=== PATIENT | male | born 1950 | race Caucasian/White ===

== ENCOUNTER → 2019-01-17 | Outpatient (CLI) | payer MEDICARE, OTHER ==
--- NOTE | 2019-01-17 09:51 | US ---
EXAMINATION TYPE: US kidneys/renal and bladder DATE OF EXAM: 01/17/2019 COMPARISON: NONE CLINICAL HISTORY: N17.9 Acute kidney injury. Acute kidney injury EXAM MEASUREMENTS: Right Kidney: 9.2 x 5.0 x 5.0 cm Left Kidney: 9.1 x 4.8 x 4.5 cm Right Kidney: multiple echogenic foci scattered throughout with largest seen superior pole measuring 0.5cm Left Kidney: multiple echogenic foci scattered throughout with largest seen inferior pole measuring 0 .7cm, 2 small hypoechoic areas inferior pole largest measuring 1.1cm, probable cysts. Bladder: wnl Bilateral Jets seen: yes There is no evidence for hydronephrosis at this point in time. Diminished cortical medullary differen tiation bilaterally. The urinary bladder is anechoic. Bilateral ureteral jets are seen. IMPRESSION: Diminished cortical medullary differentiation bilaterally suggests chronic medical renal disease. Add itionally there are numerous bilateral punctate hyperechoic foci that may represent small subcentimet er renal calculi however have no definitive shadowing. CT could be utilized for confirmation. No hydr onephrosis of either kidney.
== END | disposition home or self-care (01) ==
LOC: RADUSWWP 08:09
PROVIDERS: ATTEND Internal Medicine
DX: N17.9 Acute kidney failure, unspecified (principal)
CPT/HCPCS: 76770

== ENCOUNTER → 2019-01-18 | Outpatient (CLI) | payer MEDICARE, OTHER ==
--- NOTE | 2019-01-18 15:58 | NM ---
EXAMINATION TYPE: NM parathyroid w/spect DATE OF EXAM: 01/18/2019 COMPARISON: NONE HISTORY: Hypercalcemia. TECHNIQUE: Following administration of 25.2 mCi Tc99m Sestamibi. Anterior projection images of the neck and ches t were obtained 10 minutes and 3 hours post injection. SPECT images of the neck and chest were obtai jayant and reconstructed in three axes. FINDINGS: Thyroid tracer washout: Delayed images demonstrate near-complete tracer washout from the thyroid. Parathyroid uptake: None. The two-hour delayed images do not demonstrate any focal abnormal persisten t uptake in the region of the parathyroid glands to suggest parathyroid adenoma. Normal uptake: There is physiological tracer uptake in the myocardium, liver, salivary glands, and th yroid gland. IMPRESSION: Unremarkable parathyroid imaging study. No evidence for mediastinal uptake to suggest mediastinal par athyroid adenoma
== END | disposition home or self-care (01) ==
LOC: RADNMMAIN 11:03
PROVIDERS: ATTEND Internal Medicine
DX: E83.52 Hypercalcemia (principal)
CPT/HCPCS: 78071; A9500

== ENCOUNTER → 2019-02-01 | Outpatient (CLI) | payer MEDICARE, OTHER ==
[~2019-02-01] MED LIST: SODIUM CHLORIDE 0.9% 500 ML 500 ML in EMPTY BAG 1 BAG IV PRN; ZOLEDRONIC ACID 4 MG in SODIUM CHLORIDE 0.9% 100 ML IV NR
[2019-02-01 15:10] VITALS: BP 158/82; PULSE 102; RESP 16; TEMP 98.2
[2019-02-02 01:06] LABS: Protein, Total 6.3 g/dL (6.2-8.2)
[2019-02-02 01:14] LABS: Vitamin D 25 Hydroxy 20.1 ng/mL (30.0-100.0)
[2019-02-02 13:51] LABS: Albumin 3.49 g/dL (3.20-5.60); Gamma Globulin 0.77 g/dL (0.50-1.60)
== END ==
LOC: PROCWHC3 14:20
PROVIDERS: ATTEND Internal Medicine
DX: E83.52 Hypercalcemia (principal)
CPT/HCPCS: 82164; 84443; 84165; 82306; 86334; 86335; 96365; J3489

== ENCOUNTER → 2019-02-13 | Outpatient (CLI) | payer MEDICARE, OTHER ==
[2019-02-13 11:02] VITALS: BP 156/93; PULSE 100; RESP 16; TEMP 98
== END | disposition home or self-care (01) ==
LOC: PROCWHC3 10:37
PROVIDERS: ATTEND Nurse Practitioner Family
DX: E83.52 Hypercalcemia (principal)
CPT/HCPCS: 96365; J3489

== ENCOUNTER → 2019-02-23 | Outpatient (CLI) | payer MEDICARE, OTHER ==
--- NOTE | 2019-02-23 14:41 | US ---
EXAMINATION TYPE: US kidneys/renal and bladder DATE OF EXAM: 02/23/2019 COMPARISON: NONE CLINICAL HISTORY: N17.9 Acute kidney injury. EXAM MEASUREMENTS: Right Kidney: 10.5 x 4.9 x 3.7 cm Left Kidney: 11.8 x 5.9 x 4.5 cm Right Kidney: echogenic, thin renal cortex, multiple echogenic foci noted Left Kidney: echogenic, thin renal cortex, multiple echogenic foci noted, probable cystic areas lower pole with largest = 1.3 x 1.0 x 1.2cm Bladder: appears wnl Bilateral Jets seen: no There is no evidence for hydronephrosis at this point in time. No nephrolithiasis is seen. No solid masses are identified. The urinary bladder is anechoic. Bilateral ureteral jets are seen. IMPRESSION: Renal parenchymal thinning. Simple appearing cyst lower pole left kidney.
== END | disposition home or self-care (01) ==
LOC: RADUSWWP 14:03
PROVIDERS: ATTEND Internal Medicine Nephrology
DX: N28.1 Cyst of kidney, acquired (principal)
CPT/HCPCS: 76770

== ENCOUNTER → 2019-04-06 | Outpatient (CLI) | payer MEDICARE, OTHER ==
--- NOTE | 2019-04-06 11:11 | US ---
EXAMINATION TYPE: US kidneys/renal and bladder DATE OF EXAM: 04/06/2019 COMPARISON: 02/23/2019 CLINICAL HISTORY: 68-year-old male N17.9 LESA. TECHNIQUE: Multiple sonographic images of the kidneys and bladder are obtained. FINDINGS: EXAM MEASUREMENTS: Right Kidney: 10.0 x 5.9 x 4.2 cm Left Kidney: 10.3 x 5.3 x 4.8 cm Right Kidney: Multiple echogenic foci, some show shadowing shadowing. These could represent multiple small calculi or calcified arteries, no hydronephrosis identified. Left Kidney: Multiple echogenic foci, some show shadowing,, similar to the contralateral side. No hyd ronephrosis. There are two small lower pole cysts, largest measures 1.2 x .9 x 1.3 cm. Bladder: wnl Bilateral Jets seen: Yes IMPRESSION: 1. Similar extensive bilateral renal calcifications could represent calcified arteries or extensive r enal calculi. 2. No hydronephrosis.
== END | disposition home or self-care (01) ==
LOC: RADUSWWP 08:12
PROVIDERS: ATTEND Internal Medicine Nephrology
DX: N17.9 Acute kidney failure, unspecified (principal)
CPT/HCPCS: 76770

== ENCOUNTER → 2019-04-13 | Outpatient (CLI) | payer MEDICARE, OTHER ==
--- NOTE | 2019-04-13 10:47 | CT ---
EXAMINATION TYPE: CT ChestAbdPelvis wo con DATE OF EXAM: 04/13/2019 COMPARISON: None HISTORY: 68-year-old male Hypercalcemia. Back pain. TECHNIQUE: Contiguous axial scanning of the chest, abdomen, and pelvis without IV contrast. Coronal a nd sagittal reconstructions performed. CT DLP: 876.9 mGycm Automated exposure control for dose reduction was used. FINDINGS: Chest: Heart normal size without pericardial effusion. Extensive coronary vessel calcifications are present. Borderline ectasia ascending aorta 3.6 cm. Atherosclerotic arch calcifications. Conventional arch ves moriah branching anatomy. Scattered nonenlarged mediastinal lymph nodes. No thoracic lymphadenopathy by CT size criteria. Scattered pulmonary nodules are present on the right, approximately 9 nodules, measuring up to 6 mm, axial image 31 with most measuring 4 mm or less. Approximately 5 pulmonary nodules are present on the left measuring up to 5 mm, axial image 47. No consolidation or pleural effusion. ABDOMEN: Noncontrast appearance of the liver, gallbladder, adrenal glands, spleen, and pancreas show no gross abnormality. Approximately 10 nonobstructive calculi are present in each kidney measuring up to 4 mm on the right and 9 mm on the left. However, there is a 9 mm calculus in the left side of pelvis which corresponds to the course of the d istal left ureter. No appreciable hydronephrosis on either side. Moderate atherosclerotic calcifications within the abdominal aorta and iliac arteries without aneurys m. No dilated small bowel, free fluid, or free air. No mesenteric or retroperitoneal lymphadenopathy. Normal appendix. Moderate to large stool throughout the colon. No pericolonic inflammatory change. Re dundant sigmoid colon. Pelvis: Bladder urine distended. Prostate gland measures 4.5 cm wide. No abnormal fluid collection in the pel vis or pelvic lymphadenopathy. Bones: Mild degenerative changes at the hips. Bilateral L5 pars defects with grade 2/3 anterolisthesis at L5 -S1. Additional degenerative changes throughout the lumbar spine and anterior endplate spondylosis mi d to lower thoracic spine. IMPRESSION: 1. NUMEROUS SCATTERED PULMONARY NODULES MEASURING UP TO 6 MM ARE NONSPECIFIC. 3 MONTH FOLLOW-UP CT RE COMMENDED TO REASSESS. 2. BILATERAL NEPHROLITHIASIS MEASURING UP TO 9 MM. 3. AN ADDITIONAL 9 MM CALCIFICATION IN THE LEFT SIDE OF THE PELVIS LOCATED ALONG THE COURSE OF THE DI STAL LEFT URETER. THERE IS NO SIGNIFICANT HYDRONEPHROSIS, UNCLEAR IF THIS REPRESENTS AN ADJACENT P HLEBOLITH VERSUS DISTAL LEFT URETERAL CALCULUS. CORRELATE WITH PATIENT'S SYMPTOMS. 4. CAD. 5. MODERATE TO LARGE STOOL BURDEN. 6. 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 DEGENERATI VE CHANGES THROUGHOUT THE SPINE.
[2019-04-13 11:21] LABS: Ionized Calcium 5.6 mg/dL (4.5-5.3)
[2019-04-13 11:28] LABS: Calcium 10.4 mg/dL (8.4-10.2); Phosphorus 3.4 mg/dL (2.5-4.5)
--- NOTE | 2019-04-13 16:42 | NM ---
EXAMINATION TYPE: NM bone scan whole body DATE OF EXAM: 04/13/2019 COMPARISON: Correlation CT same day HISTORY: 68-year-old male with hypercalcemia. Patient reports history of pain from L4 through S1 sinc e childhood and history of L3-L5 fractures as a child. Technique: Delayed whole-body scanning was performed following the injection of 22.6 mCi Tc 99m MDP. Images acquired 3 hours post injection. FINDINGS: Degenerative tracer uptake at the right shoulder, right sternoclavicular joint, right knee. There is focal bandlike increased uptake within the mid lumbar spine that when correlating with CT may reflect advanced discussion plate degenerative change at L2-L3. No suspicious distribution of abnormal trace r activity to suggest osseous metastatic disease. IMPRESSION: 1. No scintigraphic evidence for osseous metastatic disease. 2. A band of abnormal activity within the mid lumbar spine. When correlating with the CT of the same day, this likely corresponds to advanced disc/endplate degenerative change at L2-L3. The CT did not d emonstrate an acute vertebral body fracture. 3. Scattered degenerative tracer activity as mentioned above.
== END | disposition home or self-care (01) ==
LOC: RADNMMAIN 09:46
PROVIDERS: ATTEND Internal Medicine Critical Care Medicine
DX: N20.0 Calculus of kidney (principal); R91.8 Other nonspecific abnormal finding of lung field; I25.10 Atherosclerotic heart disease of native coronary artery without angina pectoris
CPT/HCPCS: 84153; 82330; 82310; 82164; 84100; 71250; 74176; 78306; A9503

== ENCOUNTER → 2019-07-11 | Outpatient (CLI) | payer MEDICARE, OTHER ==
[2019-07-11 09:37] LABS: Appearance,Urine Clear (Clear); Bilirubin,Urine Negative (Negative); Blood,Urine Negative (Negative); Color,Urine Light Yellow; Glucose,Urine (UA) Negative (Negative); Hyaline Casts,Urine 1 /lpf (0-2); Ketones,Urine Negative (Negative); Leukocyte Esterase,Urine Trace (Negative); Mucus,Urine Rare /hpf; Nitrite,Urine Negative (Negative); PH, Urine 5.5 (5.0-8.0); Protein,Urine Trace (Negative); RBC,Urine 1 /hpf (0-5); Specific Gravity,Urine 1.013 (1.001-1.035); Urobilinogen,Urine <2.0 mg/dL (<2.0); WBC,Urine 4 /hpf (0-5)
[2019-07-11 09:40] LABS: Calcium 12.5 mg/dL (8.4-10.2)
[2019-07-11 09:51] LABS: HCT 44.1 % (39.0-53.0); HGB 13.8 gm/dL (13.0-17.5); MCH 29.3 pg (25.0-35.0); MCHC 31.3 g/dL (31.0-37.0); MCV 93.5 fL (80.0-100.0); Mean Platelet Volume 7.2; Platelet Count 267 k/uL (150-450); RBC 4.71 m/uL (4.30-5.90); RDW 15.4 % (11.5-15.5); WBC 7.1 k/uL (3.8-10.6)
[2019-07-11 09:53] LABS: INR 0.9 (<1.2); Prothrombin Time 9.9 sec (9.0-12.0)
--- NOTE | 2019-07-11 09:58 | XR ---
EXAMINATION TYPE: XR chest 2V DATE OF EXAM: 07/11/2019 COMPARISON: CT dated 04/13/2019 HISTORY: Preop TECHNIQUE: Frontal and lateral views of the chest are obtained. FINDINGS: There is no focal air space opacity, pleural effusion, or pneumothorax seen. Previously s een tiny nodules on CT chest are not clearly visualized. The cardiac silhouette size is within normal limits. The osseous structures are intact. Degenerative changes are seen throughout the thoracic s pine. IMPRESSION: No acute cardiopulmonary process.
[2019-07-11 10:37] LABS: Eosinophils # (M) 0.28 k/uL (0-0.7); Lymphocytes # (M) 2.13 k/uL (1.0-4.8); Monocytes # (M) 1.14 k/uL (0-1.0); Neutrophils # (M) 3.55 k/uL (1.3-7.7); Neutrophils % (M) 50 %; Nucleated Red Blood Cells 0 /100 WBC (0-0); Total Cells Counted 100
== END | disposition home or self-care (01) ==
LOC: LABPAT 08:44
PROVIDERS: ATTEND Orthopaedic Surgery Orthopaedic Surgery of the Spine
DX: Z01.818 Encounter for other preprocedural examination (principal); M43.16 Spondylolisthesis, lumbar region; M43.17 Spondylolisthesis, lumbosacral region; Z01.812 Encounter for preprocedural laboratory examination
CPT/HCPCS: 71046; 80048; 81001; 85025; 85610; 86850; 86900; 86901; 87070; 93005

== ENCOUNTER 2019-07-19 08:51 | Inpatient (IN) | payer MEDICARE, OTHER ==
[2019-07-10 12:37] VITALS: BMI 28.8
[~2019-07-19 08:51] MED LIST changes: +BACITRACIN 50,000 UNIT, POLYMYXIN B 500,000 UNIT in SODIUM CHLORIDE 0.9% IRRIGATIO 1,00... IRRIGATION ONE; +LIDOCAINE 1% 20 ML VIAL (10MG/ML) FOR IV START INTRADERMA PRN; +ONDANSETRON 4 MG/2 ML VIAL IVP ONE; -SODIUM CHLORIDE 0.9% 500 ML 500 ML in EMPTY BAG 1 BAG IV PRN; -ZOLEDRONIC ACID 4 MG in SODIUM CHLORIDE 0.9% 100 ML IV NR
[2019-07-19] MEDS: LACTATED RINGERS 1,000 ML IV SCH (09:33)
[2019-07-19] MEDS ORDERED: METOPROLOL TARTRATE 5 MG/5 ML VIAL IVP ONE (09:46)
[2019-07-19] MEDS ORDERED: ROCURONIUM BROMIDE 10 MG/ML 10 ML VIAL IV ONE (11:09)
[2019-07-19] MEDS ORDERED: GLYCOPYRROLATE 0.2 MG/ML 2 ML VIAL ONE (11:09)
[2019-07-19] MEDS ORDERED: SUCCINYLCHOLINE CHLORIDE 100 MG/5 ML SYR IV ONE (11:09)
[2019-07-19] MEDS ORDERED: HEPARIN SODIUM,PORCINE 10,000 UNIT/ML 1 ML VIAL ONE (11:09)
[2019-07-19] MEDS ORDERED: LACTATED RINGERS 1,000 ML BAG IV ONE (11:09)
[2019-07-19] MEDS ORDERED: NEOSTIGMINE 1 MG/ML 10 ML VIAL ONE (11:09)
[2019-07-19] MEDS ORDERED: PHENYLEPHRINE-0.9% NACL SYG 1 MG/10 ML SYRINGE ONE (11:09)
[2019-07-19] MEDS ORDERED: LIDOCAINE 1% INJ 10MG/ML (20 ML MDV) ONE (11:09)
[2019-07-19] MEDS ORDERED: MIDAZOLAM 2 MG/2 ML VIAL ONE (11:09)
[2019-07-19] MEDS ORDERED: fentaNYL (PF) 50 MCG/ML 2 ML AMP ONE (11:09)
[2019-07-19] MEDS ORDERED: PROPOFOL 10 MG/ML 20 ML VIAL IV ONE (11:09)
[2019-07-19] MEDS ORDERED: THROMBIN (BOVINE) 5,000 UNIT VIAL MISCELLANE ONE (11:12)
[2019-07-19] MEDS ORDERED: GELATIN SPONGE,ABSORB (LARGE) 1 EACH SPONGE MISCELLANE ONE (11:12)
[2019-07-19] MEDS ORDERED: LIDOCAINE 1%-EPI 1:100,000 30 ML VIAL SQ ONE ×2 (11:43)
[2019-07-19] MEDS ORDERED: LACTATED RINGERS 1,000 ML IV ONE ×2 (13:20→14:54)
[2019-07-19] MEDS ORDERED: HYDROmorphone 1 MG/ML 1 ML SYRINGE IVP PRN (15:42)
[2019-07-19] MEDS ORDERED: HYDROmorphone 0.5 MG/0.5 ML SYRINGE IVP PRN (15:42)
[2019-07-19] MEDS ORDERED: BENZOCAINE/MENTHOL LOZENG 1 EACH LOZENGE MUCOUS MEM PRN (15:42)
[2019-07-19] MEDS ORDERED: MAGNESIUM HYDROXIDE 2,400 MG/10 ML CUP PO PRN (15:42)
[2019-07-19] MEDS ORDERED: NALOXONE 0.4 MG/ML 1 ML VIAL IV PRN (15:43)
[2019-07-19] MEDS ORDERED: HYDROcodone/APAP 5-325MG 1 EACH TAB PO PRN (15:43)
[2019-07-19] MEDS ORDERED: diphenhydrAMINE 25 MG CAP PO PRN (15:43)
[2019-07-19] MEDS ORDERED: ONDANSETRON 4 MG/2 ML VIAL IVP PRN (15:43)
[2019-07-19] MEDS ORDERED: PHYSOSTIGMINE SALICYLATE 1 MG/ML 2 ML AMP IVP ONE (15:45)
[2019-07-19] MEDS: HYDROmorphone 0.5 MG/0.5 ML SYRINGE IVP PRN ×4 (15:50→16:20)
--- NOTE | 2019-07-19 15:58 | P.OP ---
Date of Procedure: 07/19/19 Preoperative Diagnosis: Grade 3 spondylolisthesis L5-S1, grade 2 retrolisthesis L4 5, severe disc degeneration L4 5 L5-S1, spinal stenosis L4 5 L5-S1, low back pain, lower extremity radiculopathy Postoperative Diagnosis: Same Anesthesia: GETA Pathology: none sent Condition: stable Disposition: PACU Description of Procedure: BRIEF OPERATIVE NOTE Preoperative Diagnosis:Grade 3 spondylolisthesis L5-S1, grade 2 retrolisthesis L4 5, severe disc degeneration L4 5 L5-S1, spinal stenosis L4 5 L5-S1, low back pain, lower extremity radiculopathy Postoperative Diagnosis:Grade 3 spondylolisthesis L5-S1, grade 2 retrolisthesis L4 5, severe disc degeneration L4 5 L5-S1, spinal stenosis L4 5 L5-S1, low back pain, lower extremity radiculopathy Procedure: Laminectomy and decompression with wide bilateral foraminotomy and facetectomy L4 5 L5-S1 Posterior lateral decompression and fusion L4 5 and L5-S1 Discectomy for decompression L5-S1 Placement of interbody autograft and allograft bone graft at L5-S1 Local autogenous bone grafting Use of Cell Saver Harvesting of bone marrow aspirate in the pedicle of L4 and vertebral body of L4 Use of bone graft extenders Use of neuro monitoring Surgeon: Dr. Guido Order Entry Representative: Rodrick RIOS who is present throughout the entire the case persistence during positioning, dissection, exposure, visualization, and all crucial elements of the case as well as closure. Anesthesia: General anesthesia per Dr. Esparza Estimated blood loss: Approximately 300 mL with 140 given back through Cell Saver Complications: None apparent Components implanted: K2M [place] pedicle screw system with 6.5 x 50 mm and 6.5 x 45 mm screws with 2 rods. We also used one large osteal amp sponge and 30 mL of DBX bone fibers to supplemental local autogenous bone graft and bone marrow aspirate Disposition: To recovery room in good stable condition. OPERATIVE INDICATIONS The patient has had long-standing issues in their lower back and lower extremities. He is having worsening symptoms despite conservative management. He was found have severe spondylolisthesis with grade 3 listhesis at L5-S1 and grade 2 retrolisthesis L4 5 which correlated well with his low back pain and lower extremity symptoms. He was having worsening pain in his back with radiculopathy and decreasing ability to do activities. The patient has been through conservative treatment. We discussed various treatment options includ ing surgery, and the patient wishes to proceed with surgery We discussed the risk, patient's alternatives and benefits of surgery including but not limited to, risk of bleeding risk of infection, risk of need for further surgery, risk of decreased, loss of motion, muscle function, malunion nonunion, hardware failure, nerve damage, paralysis, heart attack, blindness and . OPERATIVE SUMMARY After discussing all the risks, patient alternatives and benefits at length, the patient elected to proceed with surgical intervention, signed informed consent, and presented for their procedure. The patient was seen and examined in the preoperative holding area and the surgical site was marked. The patient was given antibiotics and brought to the operating room. The patient was sedated and intubated by anesthesia in standard fashion. The patient was positioned on to the operating room table in a prone position on the appropriate frame which was well-padded and well molded. We were careful to pad any bony prominences and pressure points. We were careful to maintain the patient's cervical spine and good neutral alignment and position throughout. The patient was prepped and draped in a normal standard fashion. An appropriate timeout and keystone protocol performed. We were able to proceed with the surgery. The local wound area was infiltrated with local anesthetic. An incision was made at the midline longitudinally over the appropriate levels from L4 to S1. There is a palpable step-off at L5-S1. Dissection was taken down subcutaneously to the level of the fascia which was split midline. Dissection was taken over the lamina bilaterally over the facet joints and to the transverse processes bilaterally. Intraoperative x-ray was taken which showed a marker at the appropriate level of L5. With the appropriate level positively confirmed, we were able to proceed with placement of the pedicle holes and screws. The patient had all their twitches back. The wound was co piously irrigated and suctioned dry as had been done periodically throughout the case. Screw holes were established similarly at each level. A sharp awl was used to establish the starting hole. It was palpated and found to have good for palma and good base. A monitored Steffee probe was used to establish the pedicle hole. It was positioned so there was no stimulation at 12 mA. at L4 on the right I did withdraw approximately 20 mL of bone marrow aspirate from the vertebral body and pedicle for use later in the case. It was quite difficult to find the pedicle of L5 we're able to get good intra-articular screw placement at L5 bilaterally as well as L4 and S1. The hole was palpated and found to have good for palma and a good base. The hole was tapped with the appropriate sized tap. The transverse process or sacral ala was decorticated with a high-speed bur. I was able to use these holes to place the appropriate size screw and good alignment and good position with good bony purchase. When the screws were inserted there were stimulated, and found to have no stimulation at 20 mA. I was able to turn my attention to the decompression. decompression was performed with a combination of rongeurs, curettes, Kerrison rongeurs and a ball-tip feeler. All of the bone that was removed was stripped and morcellized for use as autogenous bone graft later in the case. There is an obvious large Resendiz fragment where the lysis was bilaterally at L5 and the entirety of the Resendiz fragment was removed for use for decompression and for later autograft bone graft. I was able to obtain good central decompression as well as wide bilateral foraminal decompression at both L4 5 and L5-S1. There is no evidence of dural tear or leak. Good hemostasis was maintained. The wound was irrigated and suctioned dry. I performed a complete facetectomy at the appropriate level on the right side All bone that was removed was saved for local autogenous bone grafting. I was able to gain access to the disc space at the L5-S1 on the right. There is obvious step-off at the area and essentially complete disc height loss. I removed some of the disc to obtain further decompression of the area. There was not very good mobility at L5-S1 and I was unable to get good reduction at the space. I was unable to to place a interbody device at the interbody space of L5-S1 and instead packed the area with local autogenous bone graft and a portion of ostial and sponge. Good hemostasis was maintained. I was able to protect the neurologic structures. A discectomy was performed. This provided further decompression. I was also able to perform complete discectomy and endplate preparation with a combination of pituitary curettes, rasps and scrapers. With the interbody space prepared, I was able to do appropriate sizing. The appropriate size cage was chosen. The wound was irrigated and suctioned dry. The interbody space was packed with local autogenous bone graft and a small portion of bone graft substitute, as was the cage itself. Protecting the soft tissue structures, I was able place the cage in good alignment and good position with good fit and fill. There is no evidence of extrusion of the graft material nor protrusion of the interbody device. The wound was irrigated and suctioned dry. At L4 5 there was significant overgrowth and covering of the posterior disc space. The bone was covering the disc space and the exiting nerve root at a low trajectory allowing very little space to access the disc. I did not feel I had good angle to enter into the disc and it would've taken significant May position of the exiting nerve root in order to remove the posterior bone over the annulus. I decided to forego the interbody TLIF at L4 5. I was able get excellent decompression at L4 5 centrally and at the bilateral neuroforamen With the hardware intact, intraoperative x-ray was again taken which showed good alignment and position of the hardware at the appropriate levels. We were then able to measure, contour and place the rods and appropriate hardware bilaterally. I was able to place capcrews, tighten them down, and torque them off appropriately. I had to contour the missy significant labral I was able get a small amount of reduction at L5-S1 With this intact I was able to place the local autogenous bone graft with additional bone graft enhancer as necessary into the posterior lateral gutters bilaterally. With the bone graft intact, a stable construct, and good decompression at the appropriate levels, we were able to proceed with closure. Good hemostasis was maintained. There is no evidence of dural tear or leak. The fascia was closed for a watertight closure. The subcutaneous tissue was closed over a superficial drain. The subcuticular tissue was closed with absorbable suture. The wound was cleaned and dried and dressed with the appropriate dressing. The drapes were broken down. The patient was gently rolled back onto their hospital bed being careful to maintain their cervical spine and good neutral alignment and position. They were woken up by anesthesia, extubated, and brought to the recovery room in good stable condition. The patient will be admitted to the hospital for appropriate postoperative care, medical management and monitoring. We will continue to follow them closely about the postoperative course.
--- NOTE | 2019-07-19 16:30 | FL ---
Fluoroscopy History: Lumbar fusion lumbar fusion, 12sec fl time
[2019-07-19] MEDS: SODIUM CHLORIDE 0.9% 1,000 ML IV SCH (17:24)
--- NOTE | 2019-07-19 17:46 | P.PN ---
Progress Note - Text Progress Note Date: 07/19/19 Patient was seen with family at bedside. Patient appears to be sleeping comfortably and loopy but is easily arousable. His most recent vital signs are within normal limits except for heart rate greater than 90. We will revisit the patient when he is less loopy, likely due to anesthesia and pain medication.
[2019-07-19] MEDS: HYDROmorphone PCA 10 MG/50 ML BAG IV PRN (18:47)
[2019-07-19] MEDS: diphenhydrAMINE 25 MG CAP PO SCH (20:25)
[2019-07-19] MEDS: OXYBUTYNIN XL 5 MG TAB.ER.24 PO SCH (20:25)
[2019-07-19] MEDS: AMITRIPTYLINE HCL 25 MG TAB PO SCH (20:25)
[2019-07-19] MEDS: ATORVASTATIN 10 MG TAB PO SCH (20:25)
[2019-07-19] MEDS: CALCIUM POLYCARBOPHIL 625 MG TAB PO SCH (20:25)
--- NOTE | 2019-07-19 22:15 | XR ---
EXAMINATION TYPE: XR lumbar spine 2 or 3V DATE OF EXAM: 07/19/2019 COMPARISON: NONE HISTORY: Lumbar fusion. TECHNIQUE: Intraoperative 2 views lumbar spine. FINDINGS: Intraoperative images saved show posterior interpedicular rods and screws transfixing L4-S1 levels bilaterally with significant spondylolisthesis L5-S1 level. IMPRESSION: As above.
[2019-07-20] MEDS: SODIUM CHLORIDE 0.9% 1,000 ML IV SCH ×3 (05:18→22:46)
[2019-07-20] MEDS: LACTATED RINGERS 1,000 ML IV SCH (05:49)
[2019-07-20 07:02] LABS: Basophils % (A) 0 %; Eosinophils % (A) 0 %; HCT 33.7 % (39.0-53.0); Lymphocytes # (A) 0.8 k/uL (1.0-4.8); Lymphocytes % (A) 7 %; MCH 29.3 pg (25.0-35.0); MCHC 31.5 g/dL (31.0-37.0); MCV 93.1 fL (80.0-100.0); Mean Platelet Volume 6.9; Monocytes # (A) 0.6 k/uL (0-1.0); Monocytes % (A) 6 %; Neutrophils # (A) 9.2 k/uL (1.3-7.7); Neutrophils % (A) 85 %; Platelet Count 234 k/uL (150-450); RBC 3.62 m/uL (4.30-5.90); RDW 13.8 % (11.5-15.5); WBC 10.8 k/uL (3.8-10.6)
[2019-07-20 07:06] LABS: HGB 10.6 gm/dL (13.0-17.5)
[2019-07-20 07:15] LABS: Calcium 9.5 mg/dL (8.4-10.2); Potassium 4.6 mmol/L (3.5-5.1)
[2019-07-20] MEDS: FLUTICASONE 50MCG/SPRAY NASAL 16GM EA NOSTRIL SCH (08:30)
[2019-07-20] MEDS: ASPIRIN 81 MG PO SCH (08:31)
[2019-07-20] MEDS: TOPIRAMATE 100 MG TAB PO SCH (08:31)
[2019-07-20] MEDS: CALCIUM POLYCARBOPHIL 625 MG TAB PO SCH ×2 (08:31→21:16)
[2019-07-20] MEDS: MULTIVITAMINS, THERA 1 EACH TAB PO SCH (08:31)
[2019-07-20] MEDS: PANTOPRAZOLE 40 MG TABLET PO SCH (08:31)
[2019-07-20] MEDS: SENNOSIDES-DOCUSATE SODIUM 1 EACH TAB PO SCH (08:31)
[2019-07-20] MEDS ORDERED: NON-FORMULARY DRUG (Vitamin B Complex [Vitamin B Complex] 1 EACH) PO SCH (09:00)
--- NOTE | 2019-07-20 10:17 | P.PN ---
Progress Note - Text Progress Note Date: 07/20/19 Postoperative day #1 Patient is seen and examined today at bedside. The patient has some pain around the surgical site as expected. Pain is being controlled with medication. He is been sitting up in a chair a number of times. His legs are doing well. He has been able to tolerate his diet. Physical Exam Afebrile with stable vital signs Abdomen is soft nontender. Chest has good excursion deep and space expiration The incision site is clean dry and intact. No erythema there is no purulence. Extremities have not had neurologic change from prior to surgery. He has sustained dorsal flexion plantarflexion and EHL intact Calves and thighs were soft nontender without evidence of DVT. Assessment/Plan Postoperative day #1 status post open posterior lumbar decompression and fusion at L4 5 L5-S1 for his severe spondylolisthesis with severe spinal stenosis Patient is progressing as expected from the surgery. He has already been up to a chair which is impressive in terms of his mobility this morning We will continue to increase the patient's mobilization with therapy. His pain is being controlled adequately. He should continue to make progress steadily. His Florez is out but he has not yet urinated on his own. He lives by himself and feels that he would like to go home after discharge in the next couple of days but is also considering the possibility of rehab we'll have case management see him. We will continue pain control with oral or IV medications. We'll continue to follow patient closely.
[2019-07-20] MEDS ORDERED: HYDROmorphone 1 MG/ML 1 ML SYRINGE IVP STA (15:50)
--- NOTE | 2019-07-20 16:01 | P.CONS ---
History of Present Illness - Reason for Consult Consult date: 07/20/19 medical management Requesting physician: Zoila Guido - Chief Complaint Medical management - History of Present Illness 61-year-old male with PMH of hypertension, manic depression, spondylolisthesis presents to [facility] for elective surgery. Patient underwent laminectomy and decompression of L4-L5 L5-S1, dissecting the L5-S1, bone graft L5-S1 on 07/19/2019. There is no immediate postoperative complications. Patient was seen and examined on 07/20/2019. No acute events overnight. Patient reports 10 out of 10 pain in his lower back at the site of surgery. The DEALER ANALYST pump is giving him minimal relief. Patient states that he was able to sit up at the side of the bed and in chair today. He denies any chest pain, shortness of breath or palpitations. No nausea or vomiting. No fever or chills. Patient states that he has not been able to urinate since the catheter came out this morning. Patient also reports that he is not passing gas or have had a bowel movement yet. Review of Systems Pertinent positives and negatives as discussed in HPI, a complete review of systems was performed and all other systems are negative. Past Medical History Past Medical History: GERD/Reflux, Hyperlipidemia, Hypertension, Musculoskeletal Disorder, Renal Disease, Sleep Apnea/CPAP/BIPAP Additional Past Medical History / Comment(s): uses CPAP History of Any Multi-Drug Resistant Organisms: None Reported Past Surgical History: Tonsillectomy Additional Past Surgical History / Comment(s): colonoscopy Past Anesthesia/Blood Transfusion Reactions: No Reported Reaction Past Psychological History: Bipolar Smoking Status: Never smoker Past Alcohol Use History: Occasional Past Drug Use History: None Reported - Past Family History Mother Family Medical History: No Reported History Medications and Allergies Home Medications Medication Instructions Recorded Confirmed Type Amitriptyline HCl [Elavil] 75 mg PO HS 11/01/15 07/19/19 History Aspirin 81 mg PO DAILY 11/01/15 07/19/19 History Calcium Polycarbophil [Fibercon] 625 mg PO BID 11/01/15 07/19/19 History Fluticasone Nasal [place] [Flonase 2 spr EA NOSTRIL DAILY 11/01/15 07/19/19 History Nasal [place]] Multivit-Min/FA/Lycopen/Lutein 1 tab PO DAILY 11/01/15 07/19/19 History [Centrum Silver Tablet] Pantoprazole Sodium [Protonix] 40 mg PO DAILY 11/01/15 07/19/19 History Topiramate [Topamax] 200 mg PO DAILY 11/01/15 07/19/19 History Ubidecarenone [Co Q-10] 100 mg PO DAILY 11/01/15 07/19/19 History Vitamin B Complex 1 cap PO DAILY 11/01/15 07/19/19 History diphenhydrAMINE [Benadryl] 25 mg PO HS 11/01/15 07/19/19 History Oxybutynin Xl [Ditropan Xl] 5 mg PO HS 07/10/19 07/19/19 History Simvastatin [Zocor] 20 mg PO HS 07/10/19 07/19/19 History Allergies Allergy/AdvReac Type Severity Reaction Status Date / Time No Known Allergies Allergy Verified 07/19/19 09:21 Physical Exam Vitals: Vital Signs Temp Pulse Resp BP Pulse Ox 07/20/19 14:44 98.3 F 99 16 130/79 99 07/20/19 07:00 98.4 F 108 H 16 104/64 96 07/20/19 01:20 98.8 F 98 17 132/76 97 07/20/19 00:30 99 07/19/19 23:42 81 124/82 100 07/19/19 20:39 100 07/19/19 19:38 81 145/70 100 07/19/19 19:23 84 120/73 100 07/19/19 18:52 79 118/80 100 07/19/19 18:37 81 137/80 100 07/19/19 18:22 82 133/78 07/19/19 18:07 82 131/75 07/19/19 17:52 83 134/77 07/19/19 17:38 86 133/80 07/19/19 17:23 90 127/79 07/19/19 17:07 90 15 121/76 99 07/19/19 16:45 92 16 145/75 98 07/19/19 16:30 90 16 141/70 99 07/19/19 16:16 91 16 146/77 99 07/19/19 16:00 101 H 16 152/83 100 07/19/19 15:45 102 H 16 142/79 100 Intake and Output 07/20/19 07/20/19 07/20/19 06:59 14:59 22:59 Intake Total 990 1060 Output Total 1300 20 Balance -310 -20 1060 Intake: Intake, IV Titration 750 480 Amount Sodium Chloride 0.9% 1, 750 480 000 ml @ 75 mls/hr IV . [id number] [facility] Rx#:[id number] Oral 240 580 Output: Drainage 100 20 Back 100 20 Urine 1200 Uretheral (Florez) 450 General: [non toxic], [no distress], [appears at stated age] Derm: [warm], [dry] Head: [atraumatic], [normocephalic], [symmetric] Eyes: [EOMI], [no lid lag], [anicteric sclera] Mouth: [no lip lesion], [mucus membranes moist] Cardiovascular: [S1S2 reg], [no murmur], [positive DP pulse bilateral], Lungs: [CTA bilateral], [no rhonchi, no rales] , [no accessory muscle use] Abdominal: [soft], [ nontender to palpation], [no guarding], [no appreciable organomegaly] Ext: [no gross muscle atrophy], [no edema], [no contractures], [surgical site clean dry and intact] Neuro: [ CN II-XI grossly intact], [no focal neuro deficits] Psych: [Alert], [oriented], [appropriate affect] Results CBC & Chem 7: 07/20/19 06:30 07/20/19 06:30 Labs: Abnormal Lab Results - Last 24 Hours (Table) 07/20/19 07/20/19 Range/Units 06:30 06:30 WBC 10.8 H (3.8-10.6) k/uL RBC 3.62 L (4.30-5.90) m/uL Hgb 10.6 L D (13.0-17.5) gm/dL Hct 33.7 L (39.0-53.0) % Neutrophils # 9.2 H (1.3-7.7) k/uL Lymphocytes # 0.8 L (1.0-4.8) k/uL Chloride 109 H (98-107) mmol/L BUN 34 H (9-20) mg/dL Creatinine 3.39 H (0.66-1.25) mg/dL Glucose 170 H (74-99) mg/dL Assessment and Plan Assessment: Elevated BP Acute blood loss anemia Leukocytosis Hyperglycemia Chronic kidney disease Status post laminectomy POD 1 BP 130/79.possibly also related to pain. Not on antihypertensive medication. Plans: Monitor vitals, adjust medications as necessary. Hemoglobin 10.6, normocytic. Hemoglobin was 13.8 in 07/11/2019. Likely related to blood loss from surgery. Plans: Daily CBC. Continue to monitor. WBC count of 10.8. Likely reactive. No signs of infection. Patient is afebrile. Plans: Daily CBC. [id number] glucose 170. No known diagnosis of diabetes. Also related to pain. Plans: Daily BMP. Patient follows Dr. North in the outpatient setting. Creatinine 3.39. Unknown baseline. Plans: Avoid nephrotoxins. Daily BMP. Follow nephrology in the outpatient setting. Plans: Management as per orthopedic surgery. [Thank you for this consult. Please call with any additional questions or concerns.]
[2019-07-20] MEDS: HYDROmorphone PCA 10 MG/50 ML BAG IV PRN (19:03)
[2019-07-20] MEDS: AMITRIPTYLINE HCL 25 MG TAB PO SCH (21:15)
[2019-07-20] MEDS: diphenhydrAMINE 25 MG CAP PO SCH (21:16)
[2019-07-20] MEDS: ATORVASTATIN 10 MG TAB PO SCH (21:16)
[2019-07-20] MEDS: OXYBUTYNIN XL 5 MG TAB.ER.24 PO SCH (21:16)
[2019-07-20] MEDS: HYDROcodone/APAP 5-325MG 1 EACH TAB PO PRN (22:46)
[2019-07-21] MEDS: HYDROcodone/APAP 5-325MG 1 EACH TAB PO PRN ×4 (03:05→17:44)
[2019-07-21] MEDS: LACTATED RINGERS 1,000 ML IV SCH (07:30)
[2019-07-21] MEDS: ASPIRIN 81 MG PO SCH (08:15)
[2019-07-21] MEDS: SENNOSIDES-DOCUSATE SODIUM 1 EACH TAB PO SCH (08:15)
[2019-07-21] MEDS: PANTOPRAZOLE 40 MG TABLET PO SCH (08:15)
[2019-07-21] MEDS: TOPIRAMATE 100 MG TAB PO SCH (08:15)
[2019-07-21] MEDS: CALCIUM POLYCARBOPHIL 625 MG TAB PO SCH ×2 (08:15→20:48)
[2019-07-21] MEDS: MULTIVITAMINS, THERA 1 EACH TAB PO SCH (08:15)
[2019-07-21] MEDS: FLUTICASONE 50MCG/SPRAY NASAL 16GM EA NOSTRIL SCH (08:16)
--- NOTE | 2019-07-21 09:08 | P.PN ---
Progress Note - Text Progress Note Date: 07/21/19 Orthopedic Spine Patient is a pleasant 69-year-old male who is seen and examined at the bedside following posterior lateral decompression and fusion performed Wednesday. Patient states they are doing ok postsurgically. He continued to have pain at the surgical site. He is not currently complaining of any significant lower extremity radiculopathy bilaterally. He states he does have significant difficulty with mobilization on his own. His Florez catheter was discontinued previously. He is having difficulty with urinary retention and required straight catheterization. He has been able to urinate on his own since 10 PM last night without difficulty. He continues to use a AUTOMATION CONTROLS EXPERT, received Dilaudid IVP, and oral [place] for pain control. He states at the bedside he would like to be discharged home versus rehab and feels he may be able to go possibly 07/23/2019. Physical Exam Lumbar Fusion: Status post surgical day number 2 Patient is awake, alert, and oriented 3 Vital signs stable Good chest excursion with deep inspiration and expiration Dorsiflexion, plantarflexion, and extensor hallucis longus positive sustained bilaterally No signs or symptoms of DVT; no calf pain; pneumatic cuffs intact bilateral lower extremities Dressing is clean, dry, and intact; no erythema, purulence, or signs of infection Dressing is removed and reapplied with nonstick Telfa and Tegaderm Hemovac drain well secure; Hemovac drain is discontinued during physical examination Neurovascularly intact bilaterally lower extremities Assessment: L4-5 and L5-S1 open posterior lateral decompression and fusion L4-5 grade 2 retrolisthesis L5-S1 grade 3 spondylolisthesis L4-5 and L5-S1 severe degenerative disc disease Low back pain History of hypertension and and depression Plan: 1. Ambulate as tolerated; work with Physical Therapy to increase mobilization 2. Continue pain control with IV and oral medications; we will plan to discontinue the AUTOMATION CONTROLS EXPERT for pain control. Patient may continue with IV Dilaudid and oral [place]. We will continue to wean off IV narcotic pain medications in anticipation for discharge home as early as 07/23/2019 MAPS has been reviewed today, 07/21/2019, with no results found in the system. An "Opiod Start Talking" Form has been signed by the patient and myself in place in the patient's chart. A prescription has been written for Junedale 5 mg/325 mg 1-2 tabs every 4 hours as needed for pain, dispensed #84. He should avoid anti-inflammatories over the next 6 weeks postoperatively. 3. Dressing changed to Telfa and Tegaderm; Hemovac drain discontinued 4. Medical management can continue to manage patient for patient's other medical issues 5. We will continue to follow the patient closely; if the patient continues to improve and is able to increase his mobility, we'll plan for discharge home as early as 07/23/2019 6. Patient can follow-up with Rodrick Mccormick PA-C or Dr. Jesus Guido at [facility] in 2-3 weeks following discharge
--- NOTE | 2019-07-21 12:54 | P.NPCON ---
History of Present Illness - Reason for Consult chronic renal failure - History of Present Illness Reason for consultation: Chronic kidney disease stage IV History of present illness: Patient is a 69-year-old male seen in consultation for chronic kidney disease stage IV. Etiology is nephrosclerosis as well as hypercalcemia-induced ATN. Patient's creatinine in April 2019 was 3.6. It is 3.39 today. Patient was complaining of back pain and was noted to have spondylolisthesis as well as spinal stenosis and severe distal degeneration. Patient underwent laminectomy and decompression with right bilateral foraminotomy and facetectomy on July 19. Denies chest pain or shortness of breath. He has been voiding. No hematuria or dysuria. Denies use of nonsteroidals. He does not take any calcium or vitamin D supplementation. Patient has history of hypercalcemia which was extensively worked up with no obvious cause found. Calcium is now normal. Patient is interested in doing peritoneal dialysis when needed. Otherwise pain is currently controlled and he has no active complaints at this time. Vital signs are stable. General: The patient appeared well nourished and normally developed. HEENT: Head exam is unremarkable. Neck is without jugular venous distension. LUNGS: Lungs are clear to auscultation and percussion. Breath sounds decreased. HEART: Rate and Rhythm are regular. First and second heart sounds normal. No murmurs, rubs or gallops. ABDOMEN: Abdominal exam reveals normal bowel sounds. Non-tender and non- distended. No evidence of peritonitis. EXTREMITITES: No clubbing, cyanosis, or edema. Past Medical History Past Medical History: GERD/Reflux, Hyperlipidemia, Hypertension, Musculoskeletal Disorder, Renal Disease, Sleep Apnea/CPAP/BIPAP Additional Past Medical History / Comment(s): uses CPAP History of Any Multi-Drug Resistant Organisms: None Reported Past Surgical History: Tonsillectomy Additional Past Surgical History / Comment(s): colonoscopy Past Anesthesia/Blood Transfusion Reactions: No Reported Reaction Past Psychological History: Bipolar Smoking Status: Never smoker Past Alcohol Use History: Occasional Past Drug Use History: None Reported - Past Family History Mother Family Medical History: No Reported History Medications and Allergies Home Medications Medication Instructions Recorded Confirmed Type Amitriptyline HCl [Elavil] 75 mg PO HS 11/01/15 07/19/19 History Aspirin 81 mg PO DAILY 11/01/15 07/19/19 History Calcium Polycarbophil [Fibercon] 625 mg PO BID 11/01/15 07/19/19 History Fluticasone Nasal [place] [Flonase 2 spr EA NOSTRIL DAILY 11/01/15 07/19/19 History Nasal [place]] Multivit-Min/FA/Lycopen/Lutein 1 tab PO DAILY 11/01/15 07/19/19 History [Centrum Silver Tablet] Pantoprazole Sodium [Protonix] 40 mg PO DAILY 11/01/15 07/19/19 History Topiramate [Topamax] 200 mg PO DAILY 11/01/15 07/19/19 History Ubidecarenone [Co Q-10] 100 mg PO DAILY 11/01/15 07/19/19 History Vitamin B Complex 1 cap PO DAILY 11/01/15 07/19/19 History diphenhydrAMINE [Benadryl] 25 mg PO HS 11/01/15 07/19/19 History Oxybutynin Xl [Ditropan Xl] 5 mg PO HS 07/10/19 07/19/19 History Simvastatin [Zocor] 20 mg PO HS 07/10/19 07/19/19 History Hydrocodone/Acetaminophen [[place] 1 - 2 each PO Q4HR PRN #84 tab 07/21/19 Rx 5-325] Allergies Allergy/AdvReac Type Severity Reaction Status Date / Time No Known Allergies Allergy Verified 07/19/19 09:21 Physical Exam Vitals: Vital Signs Temp Pulse Resp BP Pulse Ox 07/21/19 07:00 98.2 F 87 16 137/81 97 07/21/19 01:19 99.3 F 106 H 18 122/70 95 07/21/19 00:00 98 07/20/19 20:09 99.4 F 105 H 18 119/69 98 07/20/19 14:44 98.3 F 99 16 130/79 99 Intake and Output 07/20/19 07/21/19 07/21/19 22:59 06:59 14:59 Intake Total 1710 Output Total 1020 1245 Balance 690 -1245 Intake: Intake, IV Titration 630 Amount Sodium Chloride 0.9% 1, 630 000 ml @ 75 mls/hr IV . [id number] [facility] Rx#:[id number] Oral 1080 Output: Drainage 70 20 Back 70 20 Urine 950 1225 Straight 950 750 Other: Voiding Method Urinal # Voids 0 Results - Lab Results Most recent lab results Calcium 9.5 mg/dL (8.4-10.2) 07/20/19 06:30 07/20/19 06:30 07/20/19 06:30 Assessment and Plan Plan: Assessment: 1. 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 GFR at baseline. 2. Status post laminectomy in July 19. 3. History of hypercalcemia which was extensively worked up with no obvious cause found. Now normal. Plan: Encourage oral intake. Avoid nephrotoxins. No urgent need for renal replacement therapy at this time. He will need to follow up outpatient in the next 2 weeks. Patient is interested in doing peritoneal dialysis. Thank you for the consultation. I will continue to follow the patient with you during his hospital stay.
--- NOTE | 2019-07-21 18:45 | P.PN ---
Subjective Progress Note Date: 07/21/19 (delayed charting seen around 1200) Principal diagnosis: back pain Patient is a 69-year-old male with past medical history of chronic kidney disease stage IV, hypertension, bipolar depression, and spondylolisthesis who presented to the hospital for elective surgery. On 07/19 he underwent laminectomy and decompression of L4/5, L5/1, discectomy, and bone grafting. He tolerated the procedure well without any immediate postoperative complications. He has been using a LOCAL HAZMAT DRIVER for pain management. Patient seen and examined at bedside. He states his pain is well controlled on current pain medications. Denies any chest pain, shortness breath, nausea, vomiting, or diarrhea. He has not had a bowel movement today. He states he was been seeing Dr. North on a regular basis due to his kidney function, he is not aware of a final diagnosis. No other questions currently. Objective - Vital Signs Vital signs: Vital Signs Temp 98.7 F 07/21/19 14:37 Pulse 102 H 07/21/19 14:37 Resp 16 07/21/19 14:37 BP 135/82 07/21/19 14:37 Pulse Ox 96 07/21/19 14:37 Intake & Output 07/20/19 07/21/19 07/21/19 18:59 06:59 18:59 Intake Total 5259 906 2349 Output Total 970 1315 60 Balance 440 -1015 1390 Intake: Intake, IV Titration 480 150 550 Amount Sodium Chloride 0.9% 1, 480 150 550 000 ml @ 75 mls/hr IV . [id number] [facility] Rx#:[id number] Oral 930 150 900 Output: Drainage 20 90 60 Back 20 90 60 Urine 950 1225 Straight 950 750 Other: Voiding Method Urinal # Voids 0 - Exam General: non toxic, no distress, appears at stated age Derm: warm, dry Head: atraumatic, normocephalic, symmetric Eyes: EOMI, no lid lag, anicteric sclera Mouth: no lip lesion, mucus membranes moist Cardiovascular: S1S2 reg, no murmur, positive posterior tibial pulse bilateral, Lungs: CTA bilateral, no rhonchi, no rales , no accessory muscle use Abdominal: soft, nontender to palpation, no guarding, no appreciable organomegaly Ext: no gross muscle atrophy, trace edema b/l, no contractures Neuro: CN II-XI grossly intact, no focal neuro deficits Psych: Alert, oriented, appropriate affect - Labs CBC & Chem 7: 07/20/19 06:30 07/20/19 06:30 Assessment and Plan Assessment: Patient is a 69-year-old male admitted for laminectomy with discectomy L4/5, L5/1 Acute blood loss anemia - anticipated outcome of surgery - follow CBC - no indication for transfusion - will disucss with Dr. North if has had recent Ferritin level will not repeat. Chronic kidney disease stage IV -Patient baseline creatinine 3.6 -Nephrology consulted as they chronically manage the patient -History of hypercalcemia with no etiology discovered. - BMP in AM Hx Hypertension - no chronically on medcations - follow BP Dyslipidemia - Statin BENJAMÍN - CPAP use GERD - PPI DVT prophylaxis: per neuro surg Discussed with: patient, nursing, nephro A total of 25 minutes was spent on the care of this complex patient more than 50% of the time was spent in counseling and care coordination.
[2019-07-21] MEDS: diphenhydrAMINE 25 MG CAP PO SCH (20:48)
[2019-07-21] MEDS: OXYBUTYNIN XL 5 MG TAB.ER.24 PO SCH (20:48)
[2019-07-21] MEDS: AMITRIPTYLINE HCL 25 MG TAB PO SCH (20:48)
[2019-07-21] MEDS: ATORVASTATIN 10 MG TAB PO SCH (20:48)
[2019-07-21] MEDS: SODIUM CHLORIDE 0.9% 1,000 ML IV SCH (20:53)
[2019-07-22] MEDS: LACTATED RINGERS 1,000 ML IV SCH (02:54)
[2019-07-22] MEDS: HYDROcodone/APAP 5-325MG 1 EACH TAB PO PRN ×3 (05:44→23:49)
[2019-07-22] MEDS: ASPIRIN 81 MG PO SCH (07:39)
[2019-07-22] MEDS: SENNOSIDES-DOCUSATE SODIUM 1 EACH TAB PO SCH (07:39)
[2019-07-22] MEDS: FLUTICASONE 50MCG/SPRAY NASAL 16GM EA NOSTRIL SCH (07:39)
[2019-07-22] MEDS: MULTIVITAMINS, THERA 1 EACH TAB PO SCH (07:39)
[2019-07-22] MEDS: TOPIRAMATE 100 MG TAB PO SCH (07:39)
[2019-07-22] MEDS: PANTOPRAZOLE 40 MG TABLET PO SCH (07:39)
[2019-07-22] MEDS: CALCIUM POLYCARBOPHIL 625 MG TAB PO SCH ×2 (07:40→20:05)
--- NOTE | 2019-07-22 08:02 | P.PN ---
Progress Note - Text Progress Note Date: 07/22/19 Postoperative day #3 Patient is seen and examined today at bedside. The patient has some pain around the surgical site as expected. Pain is being controlled with medication. He is tender try to switch primarily to orals today to see if that controls his pain adequately. He has been able to get in and out of bed to some degree with a bit of struggle but still having significant difficulty trying to mobilize by himself. Physical Exam Afebrile with stable vital signs Abdomen is soft nontender. Chest has good excursion deep and space expiration The incision site is clean dry and intact. No erythema there is no purulence. Extremities have not had neurologic change from prior to surgery. He has sustained dorsal flexion plantar flexion and EHL intact Calves and thighs were soft nontender without evidence of DVT. Assessment/Plan Postoperative day #3 status post open decompression and fusion L45 L5-S1 for his grade 3 spondylolisthesis and severe stenosis Patient is progressing as expected from the surgery. With his open procedure he is progressing somewhat more slowly as expected but is making steady progress We will continue to increase the patient's mobilization with therapy. As of today I do not think that he is quite safe for being alone at home with his mobility status. He has little help at home by himself and I think he needs to improve his mobility before he can be home alone. He would like to go straight home rather than being at a halfway facility. Hopefully he will continue to make some progress and will be safe for discharge home tomorrow or Wednesday. We will continue pain control with oral or IV medications. We'll continue to follow patient closely.
[2019-07-22 08:08] LABS: HCT 30.9 % (39.0-53.0); HGB 10.2 gm/dL (13.0-17.5); MCH 30.3 pg (25.0-35.0); MCV 91.7 fL (80.0-100.0); Mean Platelet Volume 6.9; Platelet Count 244 k/uL (150-450); RBC 3.37 m/uL (4.30-5.90); RDW 14.1 % (11.5-15.5)
[2019-07-22 08:40] LABS: Calcium 9.9 mg/dL (8.4-10.2); Potassium 4.1 mmol/L (3.5-5.1)
--- NOTE | 2019-07-22 09:24 | P.PN ---
Subjective Patient is seen in follow-up for chronic kidney disease. GFR is at baseline. No vomiting or diarrhea. Oral intake is good. No active complaints. Vital signs are stable. General: The patient appeared well nourished and normally developed. HEENT: Head exam is unremarkable. Neck is without jugular venous distension. LUNGS: Lungs are clear to auscultation and percussion. Breath sounds decreased. HEART: Rate and Rhythm are regular. First and second heart sounds normal. No murmurs, rubs or gallops. ABDOMEN: Abdominal exam reveals normal bowel sounds. Non-tender and non- distended. No evidence of peritonitis. EXTREMITITES: No clubbing, cyanosis, or edema. Objective - Vital Signs Vital signs: Vital Signs Temp 98.3 F 07/22/19 07:00 Pulse 112 H 07/22/19 07:00 Resp 17 07/22/19 07:00 BP 135/83 07/22/19 07:00 Pulse Ox 96 07/22/19 07:00 Intake & Output 07/21/19 07/22/19 07/22/19 18:59 06:59 18:59 Intake Total 1450 480 Output Total 60 Balance 1390 480 Intake: Intake, IV Titration 550 Amount Sodium Chloride 0.9% 1, 550 000 ml @ 75 mls/hr IV . [id number] [facility] Rx#:[id number] Oral 900 480 Output: Drainage 60 Back 60 Other: Voiding Method Urinal # Voids 2 - Labs CBC & Chem 7: 07/22/19 07:25 07/22/19 07:25 Labs: Abnormal Lab Results - Last 24 Hours (Table) 07/22/19 07/22/19 Range/Units 07:25 07:25 WBC 11.0 H (3.8-10.6) k/uL RBC 3.37 L (4.30-5.90) m/uL Hgb 10.2 L (13.0-17.5) gm/dL Hct 30.9 L (39.0-53.0) % Chloride 108 H (98-107) mmol/L Carbon Dioxide 20 L (22-30) mmol/L BUN 31 H (9-20) mg/dL Creatinine 3.20 H (0.66-1.25) mg/dL Glucose 104 H (74-99) mg/dL Assessment and Plan Plan: Assessment: 1. Chronic kidney disease stage IV secondary to nephrosclerosis and hyper calcemia-induced ATN. GFR at baseline. 2. Status post laminectomy in July 19. 3. History of hypercalcemia which was extensively worked up with no obvious cause found. Now normal. 4. Metabolic acidosis secondary to chronic kidney disease. Patient is also on Topamax. Plan: Encourage oral intake. Avoid nephrotoxins. No urgent need for renal replacement therapy at this time. He will need to follow up outpatient in the next 2 weeks. Patient is interested in doing peritoneal dialysis. Add oral sodium bicarbonate.
--- NOTE | 2019-07-22 11:23 | P.PN ---
Subjective Progress Note Date: 07/22/19 Principal diagnosis: back pain Patient is a 69-year-old male with past medical history of chronic kidney disease stage IV, hypertension, bipolar depression, and spondylolisthesis who presented to the hospital for elective surgery. On 07/19 he underwent laminectomy and decompression of L4/5, L5/1, discectomy, and bone grafting. He tolerated the procedure well without any immediate postoperative complications. Patient seen and examined at bedside. 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 Reports that he is moving more. Denies any chest pain, shortness breath, gina sea, vomiting, or diarrhea. Objective - Vital Signs Vital signs: Vital Signs Temp 98.3 F 07/22/19 07:00 Pulse 112 H 07/22/19 07:00 Resp 17 07/22/19 07:00 BP 135/83 07/22/19 07:00 Pulse Ox 96 07/22/19 07:00 Intake & Output 07/21/19 07/22/19 07/22/19 18:59 06:59 18:59 Intake Total 1450 480 240 Output Total 60 Balance 1390 480 240 Intake: Intake, IV Titration 550 Amount Sodium Chloride 0.9% 1, 550 000 ml @ 75 mls/hr IV . [id number] COUNTS INCLUDE [facility] BEDS AT [facility] Rx#:[id number] Oral 900 480 240 Output: Drainage 60 Back 60 Other: Voiding Method Urinal # Voids 2 - Exam General: non toxic, no distress, appears at stated age Derm: warm, dry Head: atraumatic, normocephalic, symmetric Eyes: EOMI, no lid lag, anicteric sclera Mouth: no lip lesion, mucus membranes moist Cardiovascular: S1S2 reg, no murmur, positive posterior tibial pulse bilateral, Lungs: CTA bilateral, no rhonchi, no rales , no accessory muscle use Abdominal: soft, nontender to palpation, no guarding, no appreciable organomegaly Ext: no gross muscle atrophy, trace edema b/l, no contractures Neuro: CN II-XI grossly intact, no focal neuro deficits Psych: Alert, oriented, appropriate affect - Labs CBC & Chem 7: 07/22/19 07:25 07/22/19 07:25 Labs: Abnormal Lab Results - Last 24 Hours (Table) 07/22/19 07/22/19 Range/Units 07:25 07:25 WBC 11.0 H (3.8-10.6) k/uL RBC 3.37 L (4.30-5.90) m/uL Hgb 10.2 L (13.0-17.5) gm/dL Hct 30.9 L (39.0-53.0) % Chloride 108 H (98-107) mmol/L Carbon Dioxide 20 L (22-30) mmol/L BUN 31 H (9-20) mg/dL Creatinine 3.20 H (0.66-1.25) mg/dL Glucose 104 H (74-99) mg/dL Assessment and Plan Assessment: Patient is a 69-year-old male admitted for laminectomy with discectomy L4/5, L5/1 Acute blood loss anemia - anticipated outcome of surgery - follow CBC - no indication for transfusion -Ferritin levels outpatient. Following with Dr. Alvarez in 2 weeks. Chronic kidney disease stage IV -Patient baseline creatinine 3.6 -Nephrology recommendations appreciated. -History of hypercalcemia with no etiology discovered. Hx Hypertension - no chronically on medcations - follow BP Dyslipidemia - Statin BENJAMÍN - CPAP use GERD - PPI DVT prophylaxis: per neuro surg Discussed with: patient, A total of 25 minutes was spent on the care of this complex patient more than 50% of the time was spent in counseling and care coordination.
[2019-07-22] MEDS: SODIUM BICARBONATE TAB 650 MG TAB PO SCH ×2 (12:05→20:05)
[2019-07-22] MEDS: AMITRIPTYLINE HCL 25 MG TAB PO SCH (20:05)
[2019-07-22] MEDS: OXYBUTYNIN XL 5 MG TAB.ER.24 PO SCH (20:05)
[2019-07-22] MEDS: ATORVASTATIN 10 MG TAB PO SCH (20:06)
[2019-07-22] MEDS: diphenhydrAMINE 25 MG CAP PO SCH (20:06)
[2019-07-23] MEDS: FLUTICASONE 50MCG/SPRAY NASAL 16GM EA NOSTRIL SCH (08:19)
[2019-07-23] MEDS: SODIUM BICARBONATE TAB 650 MG TAB PO SCH ×2 (08:19→20:16)
[2019-07-23] MEDS: SENNOSIDES-DOCUSATE SODIUM 1 EACH TAB PO SCH (08:20)
[2019-07-23] MEDS: PANTOPRAZOLE 40 MG TABLET PO SCH (08:20)
[2019-07-23] MEDS: HYDROcodone/APAP 5-325MG 1 EACH TAB PO PRN ×3 (08:20→18:16)
[2019-07-23] MEDS: MULTIVITAMINS, THERA 1 EACH TAB PO SCH (08:20)
[2019-07-23] MEDS: ASPIRIN 81 MG PO SCH (08:20)
[2019-07-23] MEDS: CALCIUM POLYCARBOPHIL 625 MG TAB PO SCH ×2 (08:20→20:16)
[2019-07-23] MEDS: TOPIRAMATE 100 MG TAB PO SCH (08:20)
--- NOTE | 2019-07-23 10:49 | P.PN ---
Subjective Patient is seen in follow-up for chronic kidney disease. GFR is at baseline. No vomiting or diarrhea. Oral intake is good. No active complaints. He has been ambulating. Using a walker. Vital signs are stable. General: The patient appeared well nourished and normally developed. HEENT: Head exam is unremarkable. Neck is without jugular venous distension. LUNGS: Lungs are clear to auscultation and percussion. Breath sounds decreased. HEART: Rate and Rhythm are regular. First and second heart sounds normal. No murmurs, rubs or gallops. ABDOMEN: Abdominal exam reveals normal bowel sounds. Non-tender and non- distended. No evidence of peritonitis. EXTREMITITES: No clubbing, cyanosis, or edema. Objective - Vital Signs Vital signs: Vital Signs Temp 98.3 F 07/23/19 07:00 Pulse 102 H 07/23/19 07:00 Resp 17 07/23/19 07:00 BP 132/76 07/23/19 07:00 Pulse Ox 96 07/23/19 07:00 Intake & Output 07/22/19 07/23/19 07/23/19 18:59 06:59 18:59 Intake Total 462 840 236 Output Total 1300 Balance 462 -460 236 Intake: Oral 462 840 236 Output: Urine 1300 Other: Voiding Method Urinal Urinal # Voids 2 1 - Labs CBC & Chem 7: 07/22/19 07:25 07/22/19 07:25 Assessment and Plan Plan: Assessment: 1. 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 GFR at baseline. 2. Status post laminectomy in July 19. 3. History of hypercalcemia which was extensively worked up with no obvious cause found. Now normal. 4. Metabolic acidosis secondary to chronic kidney disease. Patient is also on Topamax. Maintained on oral sodium bicarbonate. Plan: Encourage oral intake. Avoid nephrotoxins. No urgent need for renal replacement therapy at this time. He will need to follow up outpatient in the next 2 weeks. Patient is interested in doing peritoneal dialysis.
[2019-07-23] MEDS ORDERED: BISACODYL 5 MG TABLET.DR PO STA (10:57)
[2019-07-23] MEDS ORDERED: BISACODYL 5 MG TABLET.DR PO PRN (10:57)
--- NOTE | 2019-07-23 11:05 | P.PN ---
Subjective Progress Note Date: 07/23/19 Principal diagnosis: back pain Patient is a 69-year-old male with past medical history of chronic kidney disease stage IV, hypertension, bipolar depression, and spondylolisthesis who presented to the hospital for elective surgery. On 07/19 he underwent laminectomy and decompression of L4/5, L5/1, discectomy, and bone grafting. He tolerated the procedure well without any immediate postoperative complications. Patient seen and examined at bedside. Pain when ambulating, no chest pain, no shortness of breath, no nausea, no vomiting. Tired today. Objective - Vital Signs Vital signs: Vital Signs Temp 98.3 F 07/23/19 07:00 Pulse 102 H 07/23/19 07:00 Resp 17 07/23/19 07:00 BP 132/76 07/23/19 07:00 Pulse Ox 96 07/23/19 07:00 Intake & Output 07/22/19 07/23/19 07/23/19 18:59 06:59 18:59 Intake Total 462 840 236 Output Total 1300 Balance 462 -460 236 Intake: Oral 462 840 236 Output: Urine 1300 Other: Voiding Method Urinal Urinal # Voids 2 1 - Exam General: non toxic, no distress, appears at stated age Derm: warm, dry Head: atraumatic, normocephalic, symmetric Eyes: EOMI, no lid lag, anicteric sclera Mouth: no lip lesion, mucus membranes moist Cardiovascular: S1S2 reg, no murmur, positive posterior tibial pulse bilateral, Lungs: CTA bilateral, no rhonchi, no rales , no accessory muscle use Abdominal: soft, nontender to palpation, no guarding, no appreciable organomegaly Ext: no gross muscle atrophy, trace edema b/l, no contractures Neuro: CN II-XI grossly intact, no focal neuro deficits Psych: Alert, oriented, appropriate affect - Labs CBC & Chem 7: 07/22/19 07:25 07/22/19 07:25 Assessment and Plan Assessment: Patient is a 69-year-old male admitted for laminectomy with discectomy L4/5, L5/1 Constipation - on senokot dialy - add dulcolax, no milk of mag due to renal function - increase activity if approved by ortho. Acute blood loss anemia - anticipated outcome of surgery - follow CBC - no indication for transfusion -Ferritin levels outpatient. Following with Dr. North in 2 weeks. Chronic kidney disease stage IV -Patient baseline creatinine 3.6 -Nephrology recommendations appreciated. Add oral bicarb and RX written for discharge by me. -History of hypercalcemia with no etiology discovered. Hx Hypertension - no chronically on medications - follow BP Dyslipidemia - Statin BENJAMÍN - CPAP use GERD - PPI Medically optimized. DVT prophylaxis: per neuro surg Discussed with: patient, nursing A total of 25 minutes was spent on the care of this complex patient more than 50% of the time was spent in counseling and care coordination.
--- NOTE | 2019-07-23 12:52 | P.PN ---
Subjective Progress Note Date: 07/23/19 This patient is a 69-year-old male with past medical history of chronic kidney disease, hypertension, and bipolar depression who is status-post open decompression and fusion of L4-5 and L5-S1 for his grade 3 spondylolisthesis and severe stenosis on 07/19/[address] Guido. Today's postoperative day #4. The patient is examined bedside. Patient states he was up with physical therapy today and was able to increase his mobilization, with walking in the halls and walking up 1-2 stairs. He states he experienced minimal pain or issues with this. He states his pain continues to improve. His pain is currently well-controlled. He states he has not required IV pain medication in at least today. He is tolerating his diet well. He has not yet had a bowel movement postoperatively, although he denies abdominal pain. He has been passing gas. He states he does not have a bowel movement every day at [place], he states he has gone weeks weeks without a bowel movement in the past. Patient denies chest pain, shortness breath, nausea, vomiting, numbness or tingling of his bilateral lower extremities. He denies any new complaints today. Vital signs stable. Objective - Vital Signs Vital signs: Vital Signs Temp 98.3 F 07/23/19 07:00 Pulse 102 H 07/23/19 07:00 Resp 17 07/23/19 07:00 BP 132/76 07/23/19 07:00 Pulse Ox 96 07/23/19 07:00 Intake & Output 07/22/19 07/23/19 07/23/19 18:59 06:59 18:59 Intake Total 462 840 236 Output Total 1300 Balance 462 -460 236 Intake: Oral 462 840 236 Output: Urine 1300 Other: Voiding Method Urinal Urinal # Voids 2 1 - Exam On examination, the patient is sitting up in bed in no apparent distress. He is alert and oriented 3. His breathing appears nonlabored. On inspection of the incision site, the dressing is clean, dry, intact. Minimal drainage present on the dressing. Patient is able to dorsiflex and plantarflex his bilateral ankles without issue. EHL intact bilaterally. Sensation is intact to light touch of bilateral lower extremities. Dorsalis pedis pulse palpable bilaterally, doesn't brisk capillary refill. Calves are soft and nontender to palpation bilaterally. - Labs CBC & Chem 7: 07/22/19 07:25 07/22/19 07:25 Assessment and Plan Assessment: Spondylolisthesis and severe stenosis status-post open decompression and fusion of L4-L5 and L5-S1. Postoperative day #4. Plan: - Patient continues to progress from surgery. Recommended he continue to i ncrease his mobilization with physical therapy. Patient wants to be discharged to his home. He states he has no one in the home to help him. Therefore, the patient and I had a discussion and he would like to remain inpatient for another night to have another day to work with therapy to become comfortable with mobilizing himself. - Continue physical therapy for gait and balance training. - Continue pain management. Decrease use of IV pain medication as tolerated. - Appreciate internal medicine recommendations for medical management. - Anticipate discharge home in the next 24 hours.
[2019-07-23] MEDS: AMITRIPTYLINE HCL 25 MG TAB PO SCH (20:16)
[2019-07-23] MEDS: ATORVASTATIN 10 MG TAB PO SCH (20:17)
[2019-07-23] MEDS: OXYBUTYNIN XL 5 MG TAB.ER.24 PO SCH (20:17)
[2019-07-23] MEDS: diphenhydrAMINE 25 MG CAP PO SCH (20:17)
[2019-07-24] MEDS: HYDROcodone/APAP 5-325MG 1 EACH TAB PO PRN ×3 (00:07→13:04)
[2019-07-24 07:32] VITALS: BP 117/75; PULSE 98; RESP 15; TEMP 97.4
[2019-07-24] MEDS: PANTOPRAZOLE 40 MG TABLET PO SCH (08:45)
[2019-07-24] MEDS: MULTIVITAMINS, THERA 1 EACH TAB PO SCH (08:46)
[2019-07-24] MEDS: TOPIRAMATE 100 MG TAB PO SCH (08:46)
[2019-07-24] MEDS: SENNOSIDES-DOCUSATE SODIUM 1 EACH TAB PO SCH (08:46)
[2019-07-24] MEDS: ASPIRIN 81 MG PO SCH (08:46)
[2019-07-24] MEDS: CALCIUM POLYCARBOPHIL 625 MG TAB PO SCH (08:46)
--- NOTE | 2019-07-24 08:46 | P.DS ---
Providers Date of admission: 07/19/19 08:51 Expected date of discharge: 07/24/19 Attending physician: Zoila Guido Consults: 07/19/19 15:43 Consult Physician Routine Consulting Provider: Felicia Woodson Consult Reason/Comments: Medical management Do you want consulting provider notified?: Yes 07/21/19 12:39 Consult Physician Routine Consulting Provider: Ren North Consult Reason/Comments: CKD Do you want consulting provider notified?: Already Contacted Primary care physician: Wei Salcido - Discharge Diagnosis(es) (1) Status post lumbar spinal fusion Current Visit: Yes Status: Acute (2) Low back pain Current Visit: Yes Status: Acute (3) Radiculopathy with lower extremity symptoms Current Visit: Yes Status: Acute (4) Lumbar degenerative disc disease Current Visit: Yes Status: Acute (5) Spondylolisthesis at L4-L5 level Current Visit: Yes Status: Acute (6) Spondylolisthesis at L5-S1 level Current Visit: Yes Status: Acute (7) Hypertension Current Visit: Yes Status: Acute (8) History of depression Current Visit: Yes Status: Acute Hospital Course: This is a pleasant 69-year-old male who presented with L4-5 grade 2 spondylolisthesis, L5-S1 grade 3 spondylolisthesis, L4-5 and L5-S1 severe degenerative disc disease and spinal canal stenosis with low back pain and lower extremity radiculopathy who failed outpatient conservative therapy. He was admitted for L4-5 and L5-S1 open posterior lateral decompression and fusion. The patient tolerated the procedure well and did well postoperatively. He has been able to increase his mobility. He has been using a walker to aid in ambulation. He has a walker at home. He is very happy with his progress postoperatively. His pain has been well-controlled. He feels he is ready for discharge today. He is eating and voiding without difficulty. He has not had a bowel movement but continues to pass gas. He denies abdominal pain. He states he does not regularly have bowel movements at home. Condition on day of discharge stable. Patient will be discharged home. Patient was cleared preoperatively for surgery by Dr. Salcido. Patient currently denies any nausea, vomiting, fever, or chills. Patient may shower without a dressing intact at this time. The incision remains clean, dry, and intact with no dehiscence, no active drainage and no sign of infection. Patient should keep Steri-Strips intact and allow them to fall off naturally. Patient should refrain from driving until at least after their first follow-up appointment in the office. Patient should avoid excessive bending, lifting, and twisting; no lifting greater than 10 pounds. MAPS was reviewed on 07/21/2019 with no results found in the system. An "Opiod Start Talking" Form has been signed by the patient and myself in place in the patient's chart. A prescription has been written for [place] 5 mg/325 mg 1-2 tabs every 4 hours as needed for pain, dispensed #84. He should avoid anti-inflammatories over the next 6 weeks postoperatively. Physical Exam on day of discharge: Status post surgical day number 5 Patient is awake, alert, and oriented 3 Vital signs stable Good chest excursion with deep inspiration and expiration Dorsiflexion, plantarflexion, and extensor hallucis longus positive sustained bilaterally No signs or symptoms of DVT; no calf pain; pneumatic cuffs intact bilateral lower extremities Active range of motion bilateral lower extremities without difficulty Dressing is clean, dry, and intact; no erythema, purulence, or signs of infection Steri-Strips remain intact No significant pain with palpation of his lumbar spine Neurovascularly intact bilaterally lower extremities Procedures: L4-5 and L5-S1 open posterior lateral decompression and fusion Patient Condition at Discharge: Stable Plan - Discharge Summary Discharge Rx Participant: Yes New Discharge Prescriptions: New Hydrocodone/Acetaminophen [[place] 5-325] 1 - 2 each PO Q4HR PRN #84 tab PRN Reason: Pain Sodium Bicarbonate Tab 650 mg PO BID #60 tab Continue Calcium Polycarbophil [Fibercon] 625 mg PO BID diphenhydrAMINE [Benadryl] 25 mg PO HS Fluticasone Nasal [place] [Flonase Nasal [place]] 2 spr EA NOSTRIL DAILY Topiramate [Topamax] 200 mg PO DAILY Aspirin 81 mg PO DAILY Amitriptyline HCl [Elavil] 75 mg PO HS Vitamin B Complex 1 cap PO DAILY Pantoprazole Sodium [Protonix] 40 mg PO DAILY Multivit-Min/FA/Lycopen/Lutein [Centrum Silver Tablet] 1 tab PO DAILY Simvastatin [Zocor] 20 mg PO HS Oxybutynin Xl [Ditropan XL] 5 mg PO HS No Action Ubidecarenone [Co Q-10] 100 mg PO DAILY Discharge Medication List Amitriptyline HCl [Elavil] 75 mg PO HS 11/01/15 [History] Aspirin 81 mg PO DAILY 11/01/15 [History] Calcium Polycarbophil [Fibercon] 625 mg PO BID 11/01/15 [History] Fluticasone Nasal [place] [Flonase Nasal [place]] 2 spr EA NOSTRIL DAILY 11/01/15 [History] Multivit-Min/FA/Lycopen/Lutein [[place] Silver Tablet] 1 tab PO DAILY 11/01/15 [History] Pantoprazole Sodium [Protonix] 40 mg PO DAILY 11/01/15 [History] Topiramate [Topamax] 200 mg PO DAILY 11/01/15 [History] Ubidecarenone [Co Q-10] 100 mg PO DAILY 11/01/15 [History] Vitamin B Complex 1 cap PO DAILY 11/01/15 [History] diphenhydrAMINE [Benadryl] 25 mg PO HS 11/01/15 [History] Oxybutynin Xl [Ditropan XL] 5 mg PO HS 07/10/19 [History] Simvastatin [Zocor] 20 mg PO HS 07/10/19 [History] Hydrocodone/Acetaminophen [[place] 5-325] 1 - 2 each PO Q4HR PRN #84 tab 07/21/19 [Rx] Sodium Bicarbonate Tab 650 mg PO BID #60 tab 07/23/19 [Rx] Follow up Appointment(s)/Referral(s): Wei Salcido MD [Primary Care Provider] - 08/04/19 9:45 am Rodrick Mccormick PAC [PHYSICIAN AUDIT ANALYST] - 08/01/19 2:00 pm (Patient may follow-up with Rodrick Mccormick PA-C or Dr. Jesus Guido at [facility] in 2-3 weeks following discharge. ) [facility], [NON-STAFF] - Ren North DO [STAFF PHYSICIAN] - 2 Weeks Activity/Diet/Wound Care/Special Instructions: 1. Patient may shower without a dressing intact at this time 2. Patient should keep Steri-Strips intact and allow them to fall off naturally. 3. Patient should refrain from driving until at least after their first follow- up appointment in the office. 4. Patient should avoid excessive bending, twisting, and lifting; no lifting greater than 10 pounds 5. Take medications as prescribed 6. Do not soak in tub Discharge Disposition: HOME SELF-CARE
[2019-07-24] MEDS: SODIUM BICARBONATE TAB 650 MG TAB PO SCH (08:49)
[2019-07-24] MEDS: FLUTICASONE 50MCG/SPRAY NASAL 16GM EA NOSTRIL SCH (08:51)
--- NOTE | 2019-07-24 12:37 | P.PN ---
Subjective Progress Note Date: 07/24/19 Patient reports he is feeling much better today his pain is fairly better controlled with current medications and he is ready to go home today with home health care and home therapy. Nurse called that patient is being cleared by the orthopedics for discharge and is requesting for medical clearance before discharge. Patient stated that he still feels constipated and did not had bowel movement but he feels that with continuation of current bowel softness he will have regular bowel movements. Patient requests refills on the medication if they are not already done. Patient denies chest pain, palpitation, headache, dizziness, shortness of breath, diaphoresis and denies rest of the review system. Patient is working with the physical therapy and ambulating by using wheeled walker. No other issues were brought up by the nurses. Objective - Vital Signs Vital signs: Vital Signs Temp 97.4 F L 07/24/19 07:00 Pulse 98 07/24/19 07:00 Resp 15 07/24/19 07:00 BP 117/75 07/24/19 07:00 Pulse Ox 95 07/24/19 07:00 Intake & Output 07/23/19 07/24/19 07/24/19 18:59 06:59 18:59 Intake Total 236 600 480 Balance 236 600 480 Intake: Oral 236 600 480 Other: Voiding Method Urinal Urinal # Voids 5 2 - Constitutional General appearance: Present: cooperative, no acute distress - EENT Eyes: Present: EOMI, normal appearance ENT: Present: hearing grossly normal - Neck Neck: Present: normal ROM. Absent: lymphadenopathy, rigidity, stridor, thyromegaly - Respiratory Respiratory: bilateral: CTA, negative: rales, rhonchi, wheezing - Cardiovascular Rhythm: regular Heart sounds: normal: S1, S2 Abnormal Heart Sounds: Absent: systolic murmur, diastolic murmur, S3 Gallop, S4 Gallop - Gastrointestinal General gastrointestinal: Present: normal bowel sounds, soft. Absent: di stended, rigid - Neurologic Neurologic: Present: CNII-XII intact. Absent: focal deficits - Psychiatric Psychiatric: Present: A&O x's 3, appropriate affect - Allied health notes Allied health notes reviewed: nursing (And case management.) - Labs CBC & Chem 7: 07/22/19 07:25 07/22/19 07:25 Assessment and Plan (1) Constipation Narrative/Plan: This patient to continue bowel softeners along with 8-10 ounces of water. Also advised to follow up with his primary care provider in 2 weeks, patient verbalizes understanding and he will make an appointment with PCP for follow-up. Current Visit: Yes Status: Acute Priority: Medium Code(s): K59.00 - CONSTIPATION, UNSPECIFIED SNOMED Code(s): 49758792 (2) Anemia Narrative/Plan: Stable hemoglobin, no further decline noted. Current Visit: Yes Status: Acute Code(s): D64.9 - ANEMIA, UNSPECIFIED SNOMED Code(s): 302523119 (3) Hypertension Narrative/Plan: Stable on current diet management, patient is not on antihypertensive treatment at this point in time. Current Visit: Yes Status: Acute Priority: Medium Code(s): I10 - ESSENTIAL (PRIMARY) HYPERTENSION SNOMED Code(s): 32047997 (4) Status post lumbar spinal fusion Narrative/Plan: Pain management, therapy and follow-up care per your care. Current Visit: Yes Status: Acute Priority: Medium Code(s): Z98.1 - ARTHRODESIS STATUS SNOMED Code(s): 22707710334840 (5) CKD (chronic kidney disease), stage IV Narrative/Plan: Patient needed to follow up with Dr. North as an outpatient basis and this is to be arranged through his PCP. Current Visit: Yes Status: Acute Priority: Medium Code(s): N18.4 - CHRONIC KIDNEY DISEASE, STAGE 4 (SEVERE) SNOMED Code(s): 993848362 Time with Patient: Less than 30 (Thanks for allowing us in taking care of for medical management of your patient. Patient is stable for discharge from medical standpoint and we will sign off please reconsult again if needed.)
--- NOTE | 2019-07-24 12:55 | PN ---
PROGRESS NOTE The patient is seen for followup for chronic kidney disease. His renal function is has been stable. Patient is status post laminectomy on July 19, 2019. He is currently being discharged. The patient denies any significant complaints. PHYSICAL EXAMINATION: On examination, blood pressure is 117/75, heart rate 98 per minute. He is afebrile. EXAMINATION OF THE HEART: S1, S2. EXAMINATION OF THE LUNGS: Bilateral breath sounds are heard. Abdomen is soft, nontender. Examination of lower extremities showed no significant edema. LABS: Labs are not available from today. Serum creatinine 3.2 on 07/22/2019, potassium was 4.1. ASSESSMENT: 1. Chronic kidney disease, NKF stage 4 secondary to nephrosclerosis and previous acute tubular necrosis. Renal function is at baseline. 2. Status post laminectomy on 07/19/2019. 3. Metabolic acidosis associated with chronic kidney disease and Topamax. Currently on sodium bicarb. PLAN: Follow up as outpatient in about 1 to 2 weeks with repeat labs to be done as outpatient. No indication for renal replacement therapy at this time. MMODL / IJN: [id number] /
== END 2019-07-24 13:22 | disposition home health service (06) | DRG 460 ==
LOC: 2ORMAIN 08:51 → 4SSUR 15:38
PROVIDERS: ADMIT Orthopaedic Surgery Orthopaedic Surgery of the Spine; ATTEND Orthopaedic Surgery Orthopaedic Surgery of the Spine
PROC: 0SG3071 Fusion of Lumbosacral Joint with Autologous Tissue Substitute, Posterior Approach, Posterior Column, Open Approach (ICD-10-PCS; 2019-07-19)
PROC: 0SB40ZZ Excision of Lumbosacral Disc, Open Approach (ICD-10-PCS; 2019-07-19)
PROC: 07DS3ZZ Extraction of Vertebral Bone Marrow, Percutaneous Approach (ICD-10-PCS; 2019-07-19)
PROC: 30233N0 Transfusion of Autologous Red Blood Cells into Peripheral Vein, Percutaneous Approach (ICD-10-PCS; 2019-07-19)
PROC: 0SG0071 Fusion of Lumbar Vertebral Joint with Autologous Tissue Substitute, Posterior Approach, Posterior Column, Open Approach (ICD-10-PCS; principal; 2019-07-19 10:15)
DX: M43.17 Spondylolisthesis, lumbosacral region (principal); N18.4 Chronic kidney disease, stage 4 (severe); D62 Acute posthemorrhagic anemia; E87.2 Acidosis; M51.17 Intervertebral disc disorders with radiculopathy, lumbosacral region; D72.829 Elevated white blood cell count, unspecified; E78.5 Hyperlipidemia, unspecified; F31.9 Bipolar disorder, unspecified; G47.33 Obstructive sleep apnea (adult) (pediatric); Z99.89 Dependence on other enabling machines and devices; I12.9 Hypertensive chronic kidney disease with stage 1 through stage 4 chronic kidney disease, or unspecified chronic kidney disease; K21.9 Gastro-esophageal reflux disease without esophagitis; K59.00 Constipation, unspecified; Z79.82 Long term (current) use of aspirin; Z79.899 Other long term (current) drug therapy; G89.18 Other acute postprocedural pain; R73.9 Hyperglycemia, unspecified
CPT/HCPCS: 72100; 80048; 85025; 85027; 86850; 86891; 86900; 86901; 94760; 94762

== ENCOUNTER → 2019-08-18 | Outpatient (CLI) | payer MEDICARE, OTHER ==
[2019-08-18 10:59] LABS: HCT 38.4 % (39.0-53.0); Hypochromasia Slight; MCH 28.7 pg (25.0-35.0); MCHC 31.2 g/dL (31.0-37.0); MCV 92.1 fL (80.0-100.0); Mean Platelet Volume 6.4; Platelet Count 330 k/uL (150-450); RBC 4.17 m/uL (4.30-5.90); RDW 14.2 % (11.5-15.5); WBC 7.6 k/uL (3.8-10.6)
[2019-08-18 11:02] LABS: Appearance,Urine Clear (Clear); Bilirubin,Urine Negative (Negative); Blood,Urine Negative (Negative); Color,Urine Light Yellow; Glucose,Urine (UA) Negative (Negative); Ketones,Urine Negative (Negative); Leukocyte Esterase,Urine Negative (Negative); Nitrite,Urine Negative (Negative); Protein,Urine Negative (Negative); Specific Gravity,Urine 1.013 (1.001-1.035); Urobilinogen,Urine <2.0 mg/dL (<2.0)
[2019-08-18 17:10] LABS: Iron Saturation 31.15 (15.00-50.00)
[2019-08-18 17:18] LABS: Vitamin D 25 Hydroxy 19.6 ng/mL (30.0-100.0)
[2019-08-18 17:51] LABS: African American GFR (CKD) 17.2 (60.0-200.0); Albumin 4.4 g/dL (3.80-4.90); Albumin/Globulin Ratio 1.83 (1.60-3.17); Anion Gap 12.1 mmol/L (4.00-12.00); BUN/Creat Ratio 15.38 Ratio (12.00-20.00); Carbon Dioxide 19.9 mmol/L (21.6-31.8); Globulin 2.4 g/dL (1.6-3.3); Magnesium 2.4 mg/dL (1.5-2.4); Phosphorus 4.6 mg/dL (2.4-5.1); Potassium 4.5 mmol/L (3.5-5.5); Total Bilirubin 0.3 mg/dL (0.3-1.2); Total Protein 6.8 g/dL (6.2-8.2); Uric Acid 7.6 mg/dL (3.7-8.7)
== END | disposition home or self-care (01) ==
LOC: LABWHC1 10:06
PROVIDERS: ATTEND Internal Medicine
DX: N18.4 Chronic kidney disease, stage 4 (severe) (principal); D63.1 Anemia in chronic kidney disease; N25.81 Secondary hyperparathyroidism of renal origin; E55.0 Rickets, active; M10.9 Gout, unspecified
CPT/HCPCS: 36415; 80053; 81003; 82306; 82728; 83540; 83550; 83735; 83970; 84100; 84550; 85027

== ENCOUNTER → 2019-08-22 | Outpatient (CLI) | payer MEDICARE, OTHER ==
[~2019-08-22] MED LIST changes: -BACITRACIN 50,000 UNIT, POLYMYXIN B 500,000 UNIT in SODIUM CHLORIDE 0.9% IRRIGATIO 1,00... IRRIGATION ONE; -LIDOCAINE 1% 20 ML VIAL (10MG/ML) FOR IV START INTRADERMA PRN; -ONDANSETRON 4 MG/2 ML VIAL IVP ONE; +SODIUM CHLORIDE 0.9% 500 ML 500 ML in EMPTY BAG 1 BAG IV PRN; +ZOLEDRONIC ACID 4 MG in SODIUM CHLORIDE 0.9% 100 ML IV NR
[2019-08-22 09:19] VITALS: BP 134/89; PULSE 102; RESP 18; TEMP 98.5
== END | disposition home or self-care (01) ==
LOC: PROCWHC3 08:57
PROVIDERS: ATTEND Internal Medicine
DX: E83.52 Hypercalcemia (principal)
CPT/HCPCS: 96365; J3489

== ENCOUNTER → 2019-12-26 | Outpatient (CLI) | payer MEDICARE, OTHER ==
[2019-12-26 08:36] LABS: Appearance,Urine Clear (Clear); Bilirubin,Urine Negative (Negative); Blood,Urine Negative (Negative); Color,Urine Light Yellow; Glucose,Urine (UA) Negative (Negative); Ketones,Urine Negative (Negative); Leukocyte Esterase,Urine Negative (Negative); Nitrite,Urine Negative (Negative); Protein,Urine Negative (Negative); Urobilinogen,Urine <2.0 mg/dL (<2.0)
[2019-12-26 09:11] LABS: HCT 41.5 % (39.0-53.0); HGB 13.3 gm/dL (13.0-17.5); MCH 28.9 pg (25.0-35.0); MCV 90.3 fL (80.0-100.0); Mean Platelet Volume 7.2; Platelet Count 297 k/uL (150-450); RDW 14.3 % (11.5-15.5); WBC 9.6 k/uL (3.8-10.6)
[2019-12-26 17:32] LABS: % Iron Saturation 29.76 (15.00-50.00); African American GFR (CKD) 21.1 (60.0-200.0); Albumin 4.2 g/dL (3.80-4.90); Anion Gap 10.7 mmol/L (4.00-12.00); BUN/Creat Ratio 13.94 Ratio (12.00-20.00); Calcium 10.1 mg/dL (8.7-10.3); Carbon Dioxide 18.3 mmol/L (21.6-31.8); Globulin 2.1 g/dL (1.6-3.3); Magnesium 1.9 mg/dL (1.5-2.4); Non-African American GFR(CKD) 18.2 (60.0-200.0); Phosphorus 2.8 mg/dL (2.4-5.1); Total Bilirubin 0.2 mg/dL (0.3-1.2); Total Protein 6.3 g/dL (6.2-8.2); Uric Acid 6.3 mg/dL (3.7-8.7)
[2019-12-26 17:59] LABS: Ferritin 566.6 ng/mL (22.0-322.0)
== END | disposition home or self-care (01) ==
LOC: LABWHC1 08:10
PROVIDERS: ATTEND Nurse Practitioner Family
DX: D64.9 Anemia, unspecified (principal); N39.0 Urinary tract infection, site not specified; N25.81 Secondary hyperparathyroidism of renal origin; E55.9 Vitamin D deficiency, unspecified; M10.9 Gout, unspecified; N18.4 Chronic kidney disease, stage 4 (severe)
CPT/HCPCS: 36415; 80053; 81003; 82306; 82728; 83540; 83550; 83735; 83970; 84100; 84550; 85027

== ENCOUNTER 2022-03-28 13:11 | Inpatient (IN) | payer MEDICARE, OTHER ==
[2022-03-28] MEDS ORDERED: OLANZapine 10 MG VIAL IM STA (13:20)
[2022-03-28] MEDS ORDERED: SODIUM CHLORIDE 0.9% 1,000 ML IV ONE (13:21)
[2022-03-28 13:54] LABS: Basophils % (A) 0 %; Eosinophils % (A) 0 %; HCT 48.3 % (39.0-53.0); HGB 15.3 gm/dL (13.0-17.5); Lymphocytes # (A) 1.3 k/uL (1.0-4.8); Lymphocytes % (A) 8 %; MCHC 31.8 g/dL (31.0-37.0); MCV 91.4 fL (80.0-100.0); Mean Platelet Volume 7.3; Monocytes % (A) 6 %; Neutrophils % (A) 83 %; Platelet Count 292 k/uL (150-450); RBC 5.29 m/uL (4.30-5.90); RDW 14.2 % (11.5-15.5); WBC 16.9 k/uL (3.8-10.6)
[2022-03-28 14:07] LABS: INR 0.9 (<1.2); Partial Thromboplastin Time 22.4 sec (22.0-30.0); Prothrombin Time 10.3 sec (9.0-12.0)
[2022-03-28 14:09] LABS: Glucose,Whole Blood 115 mg/dL (75-99)
--- NOTE | 2022-03-28 14:10 | ED ---
General Adult HPI - General Chief complaint: Altered Mental Status Stated complaint: AMS Time Seen by Provider: 03/28/22 13:12 Source: patient, EMS, RN notes reviewed Mode of arrival: EMS Limitations: altered mental status - History of Present Illness Initial comments: Patient is a 71-year-old male presenting to the emergency department with concern for change in mental status. Unknown last well. Family did go to patient's house today and found him on the floor sitting in his stool. Patient is alert however not following commands and nonverbal. Patient is somewhat restless and mildly combative at times. - Related Data Home Medications Medication Instructions Recorded Confirmed Amitriptyline HCl [Elavil] 75 mg PO HS 11/01/15 10/12/19 Aspirin 81 mg PO DAILY 11/01/15 10/12/19 Fluticasone Nasal [place] [Flonase 2 spr EA NOSTRIL DAILY 11/01/15 10/12/19 Nasal [place]] Multivit-Min/FA/Lycopen/Lutein 1 tab PO DAILY 11/01/15 10/12/19 [Centrum Silver Tablet] Pantoprazole Sodium [Protonix] 40 mg PO DAILY 11/01/15 10/12/19 Topiramate [Topamax] 200 mg PO DAILY 11/01/15 10/12/19 Ubidecarenone [Co Q-10] 100 mg PO DAILY 11/01/15 10/12/19 Vitamin B Complex 1 cap PO DAILY 11/01/15 10/12/19 diphenhydrAMINE [Benadryl] 25 mg PO HS 11/01/15 10/12/19 Oxybutynin Xl [Ditropan XL] 5 mg PO HS 07/10/19 10/12/19 Simvastatin [Zocor] 20 mg PO HS 07/10/19 10/12/19 Sodium Bicarbonate 1 tab PO BID 10/09/19 10/12/19 Previous Rx's Medication Instructions Recorded Hydrocodone/Acetaminophen [[place] 1 - 2 each PO Q4HR PRN #84 tab 07/21/19 5-325] Allergies Allergy/AdvReac Type Severity Reaction Status Date / Time No Known Allergies Allergy Verified 10/09/19 11:00 Review of Systems ROS Statement: Those systems with pertinent positive or pertinent negative responses have been documented in the HPI. ROS Other: All systems not noted in ROS Statement are negative. Limitations: ROS unobtainable due to patients medical condition Past Medical History Past Medical History: GERD/Reflux, Hyperlipidemia, Hypertension, Musculoskeletal Disorder, Renal Disease, Sleep Apnea/CPAP/BIPAP Additional Past Medical History / Comment(s): uses CPAP History of Any Multi-Drug Resistant Organisms: None Reported Past Surgical History: Tonsillectomy Additional Past Surgical History / Comment(s): colonoscopy Past Anesthesia/Blood Transfusion Reactions: No Reported Reaction Past Psychological History: Bipolar Smoking Status: Unknown if ever smoked Past Alcohol Use History: Occasional Past Drug Use History: None Reported - Past Family History Mother Family Medical History: No Reported History General Exam Limitations: altered mental status General appearance: alert Head exam: Present: atraumatic, normocephalic Eye exam: Present: normal appearance, PERRL, EOMI ENT exam: Present: normal oropharynx Neck exam: Present: normal inspection. Absent: tenderness, meningismus Respiratory exam: Present: normal lung sounds bilaterally. Absent: respiratory distress Cardiovascular Exam: Present: regular rate, normal rhythm GI/Abdominal exam: Present: soft. Absent: distended, tenderness, guarding, rebound, rigid Back exam: Present: normal inspection. Absent: tenderness Neurological exam: Present: alert, altered, other (Difficult exam. Patient does move all extremities without weakness. Nonverbal.). Absent: motor sensory deficit Expanded Neurological exam: Present: protecting the airway Cranial nerves: EOM's Intact: Normal Motor strength exam: RUE: 5, LUE: 5, RLE: 5, LLE: 5 Eye Response: (4) open spontaneously Motor Response: (5) localizes to pain Verbal Response: incomprehensible sounds Psychiatric exam: Present: other (Restless and mildly agitated at times) Skin exam: Present: normal color Course Vital Signs 03/28/22 13:49 Pulse Rate 106 H Respiratory 20 Rate Blood Pressure 108/68 O2 Sat by Pulse 96 Oximetry EKG Findings - EKG Comments: EKG Findings:: Sinus rhythm 82. [place] 151. QRS 105. QT 353. QTC 392. Right axis. Normal QRS. No acute ST change. Medical Decision Making - Medical Decision Making Patient reevaluated and not quite is restless. Case discussed with Dr. Arellano, who will admit for hospital call. - Lab Data Result diagrams: 03/28/22 13:35 03/28/22 13:35 Lab Results 03/28/22 03/28/22 03/28/22 Range/Units 13:35 13:35 13:35 WBC 16.9 H (3.8-10.6) k/uL RBC 5.29 (4.30-5.90) m/uL Hgb 15.3 (13.0-17.5) gm/dL Hct 48.3 (39.0-53.0) % MCV 91.4 (80.0-100.0) fL MCH 29.0 (25.0-35.0) pg MCHC 31.8 (31.0-37.0) g/dL RDW 14.2 (11.5-15.5) % Plt Count 292 (150-450) k/uL MPV 7.3 Neutrophils % 83 % Lymphocytes % 8 % Monocytes % 6 % Eosinophils % 0 % Basophils % 0 % Neutrophils # 14.0 H (1.3-7.7) k/uL Lymphocytes # 1.3 (1.0-4.8) k/uL Monocytes # 1.0 (0-1.0) k/uL Eosinophils # 0.0 (0-0.7) k/uL Basophils # 0.0 (0-0.2) k/uL PT 10.3 (9.0-12.0) sec INR 0.9 (<1.2) APTT 22.4 (22.0-30.0) sec Sodium (137-145) mmol/L Potassium (3.5-5.1) mmol/L Chloride (98-107) mmol/L Carbon Dioxide (22-30) mmol/L Anion Gap mmol/L BUN (9-20) mg/dL Creatinine (0.66-1.25) mg/dL Est GFR (CKD-EPI)AfAm (>60 ml/min/1.73 sqM) Est GFR (CKD-EPI)NonAf (>60 ml/min/1.73 sqM) Glucose (74-99) mg/dL POC Glucose (mg/dL) (75-99) mg/dL POC Glu Meat Butcher ID Calcium (8.4-10.2) mg/dL Total Bilirubin (0.2-1.3) mg/dL AST (17-59) U/L ALT (4-49) U/L Alkaline Phosphatase (38-126) U/L Creatine Kinase (55-170) U/L Troponin I (0.000-0.034) ng/mL Total Protein (6.3-8.2) g/dL Albumin (3.5-5.0) g/dL Urine Color Yellow Urine Appearance Cloudy (Clear) Urine pH 5.5 (5.0-8.0) Ur Specific [place] 1.017 (1.001-1.035) Urine Protein 2+ H (Negative) Urine Glucose (UA) 3+ H (Negative) Urine Ketones Negative (Negative) Urine Blood Large H (Negative) Urine Nitrite Negative (Negative) Urine Bilirubin Negative (Negative) Urine Urobilinogen <2.0 (<2.0) mg/dL Ur Leukocyte Esterase Negative (Negative) Urine RBC 3 (0-5) /hpf Urine WBC 13 H (0-5) /hpf Ur Squamous Epith Cells 1 (0-4) /hpf Urine Bacteria Rare H (None) /hpf Hyaline Casts 4 H (0-2) /lpf Urine Mucus Rare H (None) /hpf Serum Alcohol mg/dL 03/28/22 03/28/22 03/28/22 Range/Units 13:35 13:35 14:07 WBC (3.8-10.6) k/uL RBC (4.30-5.90) m/uL Hgb (13.0-17.5) gm/dL Hct (39.0-53.0) % MCV (80.0-100.0) fL MCH (25.0-35.0) pg MCHC (31.0-37.0) g/dL RDW (11.5-15.5) % Plt Count (150-450) k/uL MPV Neutrophils % % Lymphocytes % % Monocytes % % Eosinophils % % Basophils % % Neutrophils # (1.3-7.7) k/uL Lymphocytes # (1.0-4.8) k/uL Monocytes # (0-1.0) k/uL Eosinophils # (0-0.7) k/uL Basophils # (0-0.2) k/uL PT (9.0-12.0) sec INR (<1.2) APTT (22.0-30.0) sec Sodium 145 (137-145) mmol/L Potassium 5.5 H (3.5-5.1) mmol/L Chloride 111 H (98-107) mmol/L Carbon Dioxide 18 L (22-30) mmol/L Anion Gap 16 mmol/L BUN 54 H (9-20) mg/dL Creatinine 4.28 H (0.66-1.25) mg/dL Est GFR (CKD-EPI)AfAm 15 (>60 ml/min/1.73 sqM) Est GFR (CKD-EPI)NonAf 13 (>60 ml/min/1.73 sqM) Glucose 134 H (74-99) mg/dL POC Glucose (mg/dL) 115 H (75-99) mg/dL POC Glu Meat Butcher ID Divine Lowery T Calcium 10.5 H (8.4-10.2) mg/dL Total Bilirubin 1.2 (0.2-1.3) mg/dL AST 139 H (17-59) U/L ALT 39 (4-49) U/L Alkaline Phosphatase 77 (38-126) U/L Creatine Kinase 2386 H* (55-170) U/L Troponin I 0.057 H* (0.000-0.034) ng/mL Total Protein 8.6 H (6.3-8.2) g/dL Albumin 4.9 (3.5-5.0) g/dL Urine Color Urine Appearance (Clear) Urine pH (5.0-8.0) Ur Specific [place] (1.001-1.035) Urine Protein (Negative) Urine Glucose (UA) (Negative) Urine Ketones (Negative) Urine Blood (Negative) Urine Nitrite (Negative) Urine Bilirubin (Negative) Urine Urobilinogen (<2.0) mg/dL Ur Leukocyte Esterase (Negative) Urine RBC (0-5) /hpf Urine WBC (0-5) /hpf Ur Squamous Epith Cells (0-4) /hpf Urine Bacteria (None) /hpf Hyaline Casts (0-2) /lpf Urine Mucus (None) /hpf Serum Alcohol <10 mg/dL - Radiology Data Radiology results: report reviewed (Computed tomography scan brain and cervical spine do not reveal acute abnormality.), image reviewed (Chest x-ray shows no acute process) Disposition Clinical Impression: Altered mental status, Acute on chronic renal failure Disposition: ADMITTED IP TO THIS HOSP Is patient prescribed a controlled substance at d/c from ED?: No Referrals: None,Stated [Primary Care Provider] - 1-2 days Time of Disposition: 14:33
[2022-03-28 14:14] LABS: ALT 39 U/L (4-49); African American GFR (CKD) 15 (>60 ml/min/1.73 sqM); Albumin 4.9 g/dL (3.5-5.0); Alcohol <10 mg/dL; Anion Gap 16 mmol/L; Blood Urea Nitrogen 54 mg/dL (9-20); Calcium 10.5 mg/dL (8.4-10.2); Carbon Dioxide 18 mmol/L (22-30); Chloride 111 mmol/L (98-107); Glucose 134 mg/dL (74-99); Non-African American GFR(CKD) 13 (>60 ml/min/1.73 sqM); Sodium 145 mmol/L (137-145); Total Bilirubin 1.2 mg/dL (0.2-1.3); Total Protein 8.6 g/dL (6.3-8.2)
--- NOTE | 2022-03-28 14:18 | XR ---
EXAMINATION TYPE: XR chest 2V DATE OF EXAM: 03/28/2022 COMPARISON: 07/11/2019 INDICATION: Altered mental status TECHNIQUE: Frontal semiupright and lateral views of the chest are obtained. FINDINGS: The heart size is normal. The pulmonary vasculature is normal. The lungs are clear. IMPRESSION: 1. No acute pulmonary process.
--- NOTE | 2022-03-28 14:21 | CT ---
EXAMINATION TYPE: CT brain vini mcfarland con DATE OF EXAM: 03/28/2022 COMPARISON: None HISTORY: Altered mental status. CT DLP: 1421.6 mGycm, Automated exposure control for dose reduction was used. CONTRAST: Patient injected with 0 mL of Isovue 300. CT of the brain is performed utilizing 3 mm thick sections through the posterior fossa and 3 mm thick sections through the remaining calvarium. Study is performed within 24 hours of arrival to the hospital. No abnormal hyperdensity is present to suggest an acute intracranial hemorrhage. No mass lesion is evident. No acute infarcts are evident. Ventricles and sulci are appropriate for the patient age. Paranasal sinuses and mastoid air cells within the [id number] are clear. IMPRESSIONS: 1. No suspicious acute intracranial changes. MRI can be performed as clinically indicated. CT cervical spine. COMPARISON: None CT of the cervical spine is performed in the axial plane at 2 mm thick sections. Reconstructed image s in the coronal, and sagittal plane are reviewed on the computer. No acute fractures are evident. Vertebral body alignment is normal. Loss of disc height is present through the cervical spine greater at the C4-5 and C5-6 levels. Some p osterior endplate spurring is present at these levels. Anterior vertebral body spurring is present gr eater at C4-5 and C5-6. Vertebral body heights are preserved. No spinal canal stenosis is evident. Foraminal stenosis due to uncovertebral joint hypertrophy is present on the right at C2-3. Moderate b ilateral foraminal stenosis is present C3-4 C4-5 and severe foraminal stenosis present on the right a t C5-6. Moderate foraminal narrowing is present on the left at C5-6. More severe foraminal stenosis i s present C6-7 bilaterally. IMPRESSIONS: 1. Degenerative disc changes with endplate spurring greatest at C5-6 C6-7. 2. Moderate to severe foraminal stenosis as above. 3. No acute osseous abnormality.
[2022-03-28 14:22] LABS: AST 139 U/L (17-59); Alkaline Phosphatase 77 U/L (38-126); Potassium 5.5 mmol/L (3.5-5.1)
[2022-03-28 14:24] LABS: Creatine Kinase 2386 U/L (55-170)
[2022-03-28 14:28] LABS: Appearance,Urine Cloudy (Clear); Bacteria,Urine Rare /hpf; Bilirubin,Urine Negative (Negative); Blood,Urine Large (Negative); Color,Urine Yellow; Glucose,Urine (UA) 3+ (Negative); Hyaline Casts,Urine 4 /lpf (0-2); Ketones,Urine Negative (Negative); Leukocyte Esterase,Urine Negative (Negative); Mucus,Urine Rare /hpf; Nitrite,Urine Negative (Negative); PH, Urine 5.5 (5.0-8.0); Protein,Urine 2+ (Negative); RBC,Urine 3 /hpf (0-5); Specific Gravity,Urine 1.017 (1.001-1.035); Squamous Epithelial Cell,Urine 1 /hpf (0-4); Urobilinogen,Urine <2.0 mg/dL (<2.0); WBC,Urine 13 /hpf (0-5)
[2022-03-28] MEDS ORDERED: NALOXONE 0.4 MG/ML 1 ML VIAL IV PRN ×2 (14:41→16:05)
[2022-03-28 14:43] LABS: Amphetamine Screen,Urine Not Detected (NotDetected); Barbiturate Screen,Urine Not Detected (NotDetected); Benzodiazepines Screen,Urine Not Detected (NotDetected); Cocaine Screen,Urine Not Detected (NotDetected); Methadone Screen, Urine Not Detected (NotDetected); Opiate Screen,Urine Not Detected (NotDetected); Oxycodone Screen, Urine Not Detected (NotDetected); Phencyclidine Screen,Urine Not Detected (NotDetected); Tricyclic Antidepressant,Urine Not Detected (NotDetected); Urn Cannabinoid Scrn Not Detected (NotDetected)
[2022-03-28] MEDS: SODIUM CHLORIDE 0.9% 1,000 ML IV SCH ×2 (15:13→21:40)
--- NOTE | 2022-03-28 16:19 | P.HPIM ---
History of Present Illness H&P Date: 03/28/22 Chief Complaint: change in mental status 71-year-old male presenting to the emergency department with change in his mental status. Patient lives by himself. The last time the family talked to the patient was 2 days ago. According to them he seemed normal at that time. He was found this morning on the floor mixed with his stools. He was moaning at that time. Otherwise no other details.. Patient is currently alert however not following commands and nonverbal. He is restless and mildly combative at times especially when trying to clean him up.. I reviewed the bottles of the medications he is supposed to be on and all of them or at least 2 years old when they were filled. Obviously he is not taking those medications as prescribed. The emergency department chest x-ray, EKG, head CT, cervical spine CT are all negative for any acute pathology. Labs showed worsening of his chronic kidney disease stage IV with creatinine up to 4.28. His baseline is around 3. Urine toxicology screen is negative. WBC count in the urine 13, blood analysis in the UA was large. Negative alcohol in the blood. Total CK 2385, troponin 0.057, AST 139, AST 39, potassium 5.5, calcium 10.5. Patient was admitted for further evaluation and management. Past Medical History Past Medical History: GERD/Reflux, Hyperlipidemia, Hypertension, Musculoskeletal Disorder, Renal Disease, Sleep Apnea/CPAP/BIPAP Additional Past Medical History / Comment(s): uses CPAP History of Any Multi-Drug Resistant Organisms: None Reported Past Surgical History: Tonsillectomy Additional Past Surgical History / Comment(s): colonoscopy Past Anesthesia/Blood Transfusion Reactions: No Reported Reaction Past Psychological History: Bipolar Smoking Status: Unknown if ever smoked Past Alcohol Use History: Occasional Past Drug Use History: None Reported - Past Family History Mother Family Medical History: No Reported History Medications and Allergies Home Medications Medication Instructions Recorded Confirmed Type Amitriptyline HCl [Elavil] 75 mg PO HS 11/01/15 10/12/19 History Aspirin 81 mg PO DAILY 11/01/15 10/12/19 History Fluticasone Nasal [place] [Flonase 2 spr EA NOSTRIL DAILY 11/01/15 10/12/19 History Nasal [place]] Multivit-Min/FA/Lycopen/Lutein 1 tab PO DAILY 11/01/15 10/12/19 History [Centrum Silver Tablet] Pantoprazole Sodium [Protonix] 40 mg PO DAILY 11/01/15 10/12/19 History Topiramate [Topamax] 200 mg PO DAILY 11/01/15 10/12/19 History Ubidecarenone [Co Q-10] 100 mg PO DAILY 11/01/15 10/12/19 History Vitamin B Complex 1 cap PO DAILY 11/01/15 10/12/19 History diphenhydrAMINE [Benadryl] 25 mg PO HS 11/01/15 10/12/19 History Oxybutynin Xl [Ditropan XL] 5 mg PO HS 07/10/19 10/12/19 History Simvastatin [Zocor] 20 mg PO HS 07/10/19 10/12/19 History Hydrocodone/Acetaminophen [[place] 1 - 2 each PO Q4HR PRN #84 tab 07/21/19 10/12/19 Rx 5-325] Sodium Bicarbonate 1 tab PO BID 10/09/19 10/12/19 History Allergies Allergy/AdvReac Type Severity Reaction Status Date / Time No Known Allergies Allergy Verified 10/09/19 11:00 Physical Exam Vitals: Vital Signs Temp Pulse Resp BP Pulse Ox 03/28/22 15:17 98.5 F 03/28/22 14:00 98.5 F 03/28/22 13:15 106 H 20 108/68 96 Intake and Output 03/28/22 03/28/22 03/28/22 06:59 14:59 22:59 Other: Weight 90.718 kg Results CBC & Chem 7: 03/28/22 13:35 03/28/22 13:35 Labs: Abnormal Lab Results - Last 24 Hours (Table) 03/28/22 03/28/22 03/28/22 Range/Units 13:35 13:35 13:35 WBC 16.9 H (3.8-10.6) k/uL Neutrophils # 14.0 H (1.3-7.7) k/uL Potassium 5.5 H (3.5-5.1) mmol/L Chloride 111 H (98-107) mmol/L Carbon Dioxide 18 L (22-30) mmol/L BUN 54 H (9-20) mg/dL Creatinine 4.28 H (0.66-1.25) mg/dL Glucose 134 H (74-99) mg/dL POC Glucose (mg/dL) (75-99) mg/dL Calcium 10.5 H (8.4-10.2) mg/dL AST 139 H (17-59) U/L Creatine Kinase 2386 H* (55-170) U/L Troponin I (0.000-0.034) ng/mL Total Protein 8.6 H (6.3-8.2) g/dL Urine Protein 2+ H (Negative) Urine Glucose (UA) 3+ H (Negative) Urine Blood Large H (Negative) Urine WBC 13 H (0-5) /hpf Urine Bacteria Rare H (None) /hpf Hyaline Casts 4 H (0-2) /lpf Urine Mucus Rare H (None) /hpf 03/28/22 03/28/22 Range/Units 13:35 14:07 WBC (3.8-10.6) k/uL Neutrophils # (1.3-7.7) k/uL Potassium (3.5-5.1) mmol/L Chloride (98-107) mmol/L Carbon Dioxide (22-30) mmol/L BUN (9-20) mg/dL Creatinine (0.66-1.25) mg/dL Glucose (74-99) mg/dL POC Glucose (mg/dL) 115 H (75-99) mg/dL Calcium (8.4-10.2) mg/dL AST (17-59) U/L Creatine Kinase (55-170) U/L Troponin I 0.057 H* (0.000-0.034) ng/mL Total Protein (6.3-8.2) g/dL Urine Protein (Negative) Urine Glucose (UA) (Negative) Urine Blood (Negative) Urine WBC (0-5) /hpf Urine Bacteria (None) /hpf Hyaline Casts (0-2) /lpf Urine Mucus (None) /hpf Assessment and Plan Plan: Acute encephalopathy Unclear etiology Could be secondary to his psychiatric chronic illness, has history of bipolar disorder Neurology consult Acute rhabdomyolysis Hyperkalemia LESA and CKD 4 IV fluids Nephrology consult Avoid nephrotoxic meds Follow up creatinine in the a.m. Chronic GERD/Reflux, Hyperlipidemia, Hypertension He doesn't seem to be taking his home medications Monitor off meds for now Patient admitted to inpatient, expected length of stay more than 2 midnights
[2022-03-28] MEDS ORDERED: DEXTROSE 50% SYRINGE 50 ML IVP STA (19:53)
[2022-03-28] MEDS ORDERED: INSULIN REGULAR 100 UNIT/ML VIAL (IV) IV ONE (19:54)
[2022-03-28 20:32] LABS: Glucose,Whole Blood 92 mg/dL (75-99)
[2022-03-28] MEDS: SODIUM BICARBONATE TAB 650 MG TAB PO SCH (21:23)
[2022-03-28 22:54] LABS: Glucose,Whole Blood 112 mg/dL (75-99)
[2022-03-29 01:11] LABS: African American GFR (CKD) 17 (>60 ml/min/1.73 sqM); Anion Gap 10 mmol/L; Blood Urea Nitrogen 52 mg/dL (9-20); Calcium 9.4 mg/dL (8.4-10.2); Carbon Dioxide 19 mmol/L (22-30); Chloride 115 mmol/L (98-107); Glucose 135 mg/dL (74-99); Non-African American GFR(CKD) 14 (>60 ml/min/1.73 sqM); Potassium 4.4 mmol/L (3.5-5.1); Sodium 144 mmol/L (137-145)
[2022-03-29] MEDS ORDERED: SODIUM CHLORIDE 0.9% 1,000 ML IV ONE (05:02)
[2022-03-29] MEDS: SODIUM CHLORIDE 0.9% 1,000 ML IV SCH ×3 (05:36→21:34)
[2022-03-29] MEDS: SODIUM BICARBONATE TAB 650 MG TAB PO SCH ×2 (06:48→20:45)
[2022-03-29 09:13] LABS: HCT 42.8 % (39.6-50.0); HGB 12.8 g/dL (13.0-17.0); MCHC 29.9 g/dL (32.0-37.0); MCV 93.7 fL (80.0-97.0); Mean Platelet Volume 10.6 fL (9.5-12.2); NRBC Per 100 WBC 0 /100 WBCS (0.0-0.0); Platelet Count 235 X 10*3/uL (140-440); RBC 4.57 X 10*6/uL (4.40-5.60); RDW 14.4 % (11.5-14.5); WBC 12.96 X 10*3/uL (4.50-10.00)
[2022-03-29 09:36] LABS: African American GFR (CKD) 17.4 (60.0-200.0); Albumin 3.7 g/dL (3.8-4.9); Albumin/Globulin Ratio 1.71 (1.60-3.17); Anion Gap 11.2 mmol/L (10.00-18.00); BUN/Creat Ratio 13.39 Ratio (12.00-20.00); Blood Urea Nitrogen 51.3 mg/dL (9.0-27.0); Calcium 9.4 mg/dL (8.7-10.3); Carbon Dioxide 20.3 mmol/L (20.0-27.5); Globulin 2.2 g/dL (1.6-3.3); Potassium 4.8 mmol/L (3.5-5.5); Total Bilirubin 0.3 mg/dL (0.30-1.20); Total Protein 5.9 g/dL (6.2-8.2)
[2022-03-29 09:52] LABS: Basophils # (A) 0.07 X 10*3/uL (0.00-0.10); Basophils % (A) 0.5 %; Eosinophils # (A) 0.15 X 10*3/uL (0.04-0.35); Eosinophils % (A) 1.2 %; Immature Grans, Automated 0.5 %; Lymphocytes # (A) 2.49 X 10*3/uL (0.90-5.00); Lymphocytes % (A) 19.2 %; Monocytes # (A) 1.51 X 10*3/uL (0.20-1.00); Monocytes % (A) 11.7 %; Neutrophils # (A) 8.68 X 10*3/uL (1.80-7.70); Neutrophils % (A) 66.9 %
--- NOTE | 2022-03-29 12:03 | P.CN ---
Psychiatric Consult - . Consult date: 03/29/22 Consult:: 03/29/22 11:56 This second evaluation on Martin Salmeron who is a 71-year-old male with a history of bipolar disorder Patient currently lives by himself and according to the family he was doing well until about 2 days ago Patient was found on the floor mixed with stools and was moaning and was brought to the hospital in a confused state Patient at the time of admission was unable to follow commands and was nonverbal patient also has been poorly compliant with this medications that are prescribed Patient carries a history of GERD, hyperlipidemia hypertension musculoskeletal disorder renal disease and sleep apnea substance use history reports occasional alcohol use and no substance use disorder Patient's current medication list does not show any psychotropic medications prescribed Patient reports that his next of kin is his brother Bryce but does not know his contact information When seen today patient states that he is not sure as to where he was but states that according to his guess that he may be in [facility] Patient responded most of the questions with I'm not sure or I don't know Patient states that he does not remember his day-to-day activities He states that he does not know what he was doing before he passed out He does not even remember passing out In asked about 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 He does not remember us 20 retired He states that he is and that he may have been more than once He admits that he was diagnosed with bipolar disorder long time ago but does not know any other information He denies that he takes any medications for it Patient denies remembering making any suicide attempts He denies any previous inpatient psychiatric hospitalizations either However he is not sure of any of his answers Mental status examination reveals a elderly male who currently appears in no acute physical distress Patient is alert and oriented to place and person Patient's affect at this time was that of [id number] anxiety Thought processes are concrete and restricted Patient exhibits some paucity of thoughts Patient's insight into his problem is impaired Patient exhibits limited curiosity or abstraction Patient's formal and operational judgment and insight are impaired Memory for the past and present events are patchy Diagnostic impression Major neurocognitive disorder acute History of bipolar disorder Plan: The patient's symptoms are currently evolving and seems to have improved since the time of admission The current presentation although does not point towards any suicide attempt further psychiatric information needs to be addressed as the patient improves Patient's current medication list does not show any psychotropic medications listed We'll follow this patient along with you. Thank you very much for a current referral please refer to contact me for any further questions Sanjay Darby M.D.
--- NOTE | 2022-03-29 12:47 | P.NPCON ---
History of Present Illness - Reason for Consult acute renal failure, chronic renal failure - History of Present Illness Reason for consultation: Acute kidney injury and chronic kidney disease History of present illness: Patient is a 71-year-old male seen in consultation for acute kidney injury and chronic kidney disease. Patient has chronic kidney disease stage IV with baseline creatinine near 3.3 from November 2019. This admission creatinine was elevated at 4.28 and is 3.8 today. Patient presents to the hospital due to altered mental status. He was found on the floor sitting in his stool by the family members. Patient does not provide much history and states he's not sure why seen in the hospital. He was noted to have urinary retention and required 2 straight catheterizations overnight. He now has a Florez catheter. With good urine output. Calcium level was high at 10.5 on admission and is down to 9.4 today. Lactic acid was also elevated and he received 1 L bolus of normal saline today. Patient's CK level was elevated at 2386 on admission. He is currently receiving normal saline at 130 mL an hour. Hemodynamically stable. He is on room air. No vomiting or diarrhea. I don't see any nonsteroidals and his home medication list. Patient was last seen in the office in December 2019. Patient's creatinine in November 2019 was 3.3. Urine at that time was benign. Patient also had hypercalcemia in the past and workup was negative except for elevated Ta level for which he was seen by pulmonology, Dr. Maier. He had responded to a trial of redness and at that time. Vital signs are stable. General: No acute distress. Awake. HEENT: Head exam is unremarkable. LUNGS: Breath sounds decreased. HEART: Rate and Rhythm are regular. ABDOMEN: Soft, no distention. EXTREMITITES: No edema. Past Medical History Past Medical History: GERD/Reflux, Hyperlipidemia, Hypertension, Musculoskeletal Disorder, Renal Disease, Sleep Apnea/CPAP/BIPAP Additional Past Medical History / Comment(s): uses CPAP History of Any Multi-Drug Resistant Organisms: None Reported Past Surgical History: Tonsillectomy Additional Past Surgical History / Comment(s): colonoscopy Past Anesthesia/Blood Transfusion Reactions: No Reported Reaction Past Psychological History: Bipolar Smoking Status: Unknown if ever smoked Past Alcohol Use History: Occasional Past Drug Use History: None Reported - Past Family History Mother Family Medical History: No Reported History Medications and Allergies Home Medications Medication Instructions Recorded Confirmed Type Amitriptyline HCl [Elavil] 75 mg PO HS 11/01/15 10/12/19 History Aspirin 81 mg PO DAILY 11/01/15 10/12/19 History Fluticasone Nasal [place] [Flonase 2 spr EA NOSTRIL DAILY 11/01/15 10/12/19 History Nasal [place]] Multivit-Min/FA/Lycopen/Lutein 1 tab PO DAILY 11/01/15 10/12/19 History [Centrum Silver Tablet] Pantoprazole Sodium [Protonix] 40 mg PO DAILY 11/01/15 10/12/19 History Topiramate [Topamax] 200 mg PO DAILY 11/01/15 10/12/19 History Ubidecarenone [Co Q-10] 100 mg PO DAILY 11/01/15 10/12/19 History Vitamin B Complex 1 cap PO DAILY 11/01/15 10/12/19 History diphenhydrAMINE [Benadryl] 25 mg PO HS 11/01/15 10/12/19 History Oxybutynin Xl [Ditropan XL] 5 mg PO HS 07/10/19 10/12/19 History Simvastatin [Zocor] 20 mg PO HS 07/10/19 10/12/19 History Hydrocodone/Acetaminophen [[place] 1 - 2 each PO Q4HR PRN #84 tab 07/21/19 10/12/19 Rx 5-325] Sodium Bicarbonate 1 tab PO BID 10/09/19 10/12/19 History Allergies Allergy/AdvReac Type Severity Reaction Status Date / Time No Known Allergies Allergy Verified 10/09/19 11:00 Physical Exam Vitals: Vital Signs Temp Pulse Pulse Resp BP BP Pulse Ox 03/29/22 06:46 98.7 F 94 16 160/91 99 03/29/22 02:00 98.9 F 109 H 18 142/79 96 03/28/22 20:00 98.9 F 99 17 169/88 98 03/28/22 19:35 99 17 03/28/22 15:17 98.5 F 03/28/22 14:00 98.5 F 03/28/22 13:15 106 H 20 108/68 96 Intake and Output 03/28/22 03/29/22 03/29/22 22:59 06:59 14:59 Output Total 1900 983 Balance -1900 -983 Output: Urine 1900 500 Straight 950 Uretheral (Florez) 500 Post Void Residual 483 Other: Voiding Method Incontinent Indwelling Catheter Weight 90.718 kg Results - Lab Results Most recent lab results Calcium 9.4 mg/dL (8.7-10.3) 03/29/22 03:50 03/29/22 03:50 03/29/22 03:50 Assessment and Plan Plan: Assessment: 1. Acute kidney injury mostly prerenal improved with IV hydration. Creatinine was 4.28 on admission and is 3.8 today. Also component of urinary retention. 2. Urinary retention status post Florez catheter placement. 3. Hypercalcemia secondary to volume contraction. Improved with IV hydration. Patient has history of hypercalcemia and workup in the past including a parathyroid nuclear scan was negative. Patient's Ta level was elevated for which he was seen by pulmonology and responded to a trial of prednisone at the time. Calcium today is 9.4. CAT scan in 2019 did show numerous pulmonary nodules. 4. Chronic kidney disease stage IV secondary to nephrosclerosis, hypercalcemia- induced ATN. ?medullary sponge kidney with history of kidney stones. Patient's creatinine in November 2021 was 3.3. 5. Mild rhabdomyolysis secondary to fall. 6. History of bipolar disorder. 7. History of nephrolithiasis. 8. Metabolic acidosis secondary to acute kidney injury and IV fluids maintained on oral bicarb. Plan: Maintain IV fluids. Repeat CK level tomorrow morning. Maintain Florez catheter. Add Flomax. Check renal ultrasound. Check PTHrP. Repeat UA, check UPC. Workup for nephrolithiasis outpatient. Patient strongly advised to follow up. Pulmonology consult due to pulmonary nodules noted on prior computed tomography scan. Unsure if patient has followed up outpatient or not.
--- NOTE | 2022-03-29 13:32 | P.PN ---
Subjective Progress Note Date: 03/29/22 Principal diagnosis: change in mental status Patient is more awake today, he is talking and answering questions. Denied pain or sob. No fevers. Not sure what happened to him at home. First thing he remembers is the pain of the trying to insert the shirley cath last night. He states that he stopped taking his meds a while ago and currently not seeing any doctor. Objective - Vital Signs Vital signs: Vital Signs Temp 98.7 F 03/29/22 06:46 Pulse 94 03/29/22 06:46 Resp 16 03/29/22 06:46 BP 160/91 03/29/22 06:46 Pulse Ox 99 03/29/22 06:46 Intake & Output 03/28/22 03/29/22 03/29/22 18:59 06:59 18:59 Output Total 1900 983 Balance -1900 -983 Weight 90.718 kg Output: Urine 1900 500 Straight 950 Uretheral (Shirley) 500 Post Void Residual 483 Other: Voiding Method Incontinent Indwelling Catheter - Exam Constitutional: No acute distress, conversant Eyes:Anicteric sclerae, moist conjunctiva, no lid-lag, PERRLA, ENMT: Oropharynx clear, no erythema, exudates Neck: Supple, FROM, no masses, or JVD, No carotid bruits, No thyromegaly Lungs: Clear to auscultation, Clear to percussion, Normal respiratory effort, no accessory muscle use Cardiovascular: Heart regular in rate and rhythm, No murmurs, gallops, or rubs, No peripheral edema Abdominal: Soft, Nontender, no guarding, rebound or rigidity, Normoactive bowel sounds, No hepatomegaly, No splenomegaly, No palpable mass Skin: Normal temperature, tone, texture, turgor, no induration, No subcutaneous nodules, No rash, lesions, No ulcers Extremities: No digital cyanosis, No clubbing, Pedal pulses intact and symmetrical, Radial pulses intact and symmetrical, No calf tenderness Psychiatric: flat affect, impaired judgement Neuro: General weakness, oriented to hospital but does not know the name. Knows he is in [facility] [place]. Does not know the year. - Labs CBC & Chem 7: 03/29/22 03:50 03/29/22 03:50 Labs: Abnormal Lab Results - Last 24 Hours (Table) 03/28/22 03/28/22 03/28/22 Range/Units 13:35 13:35 13:35 WBC 16.9 H (3.8-10.6) k/uL Hgb (13.0-17.0) g/dL MCHC (32.0-37.0) g/dL Immature Gran # (0.00-0.04) X 10*3/uL Neutrophils # 14.0 H (1.3-7.7) k/uL Monocytes # (0.20-1.00) X 10*3/uL Potassium 5.5 H (3.5-5.1) mmol/L Chloride 111 H (98-107) mmol/L Carbon Dioxide 18 L (22-30) mmol/L BUN 54 H (9-20) mg/dL Creatinine 4.28 H (0.66-1.25) mg/dL Est GFR (CKD-EPI)AfAm (60.0-200.0) Est GFR (CKD-EPI)NonAf (60.0-200.0) Glucose 134 H (74-99) mg/dL POC Glucose (mg/dL) (75-99) mg/dL Plasma Lactic Acid Daryl (0.7-2.0) mmol/L Calcium 10.5 H (8.4-10.2) mg/dL AST 139 H (17-59) U/L Creatine Kinase 2386 H* (55-170) U/L Troponin I (0.000-0.034) ng/mL Total Protein 8.6 H (6.3-8.2) g/dL Albumin (3.8-4.9) g/dL Urine Protein 2+ H (Negative) Urine Glucose (UA) 3+ H (Negative) Urine Blood Large H (Negative) Urine WBC 13 H (0-5) /hpf Urine Bacteria Rare H (None) /hpf Hyaline Casts 4 H (0-2) /lpf Urine Mucus Rare H (None) /hpf 03/28/22 03/28/22 03/28/22 Range/Units 13:35 14:07 15:32 WBC (3.8-10.6) k/uL Hgb (13.0-17.0) g/dL MCHC (32.0-37.0) g/dL Immature Gran # (0.00-0.04) X 10*3/uL Neutrophils # (1.3-7.7) k/uL Monocytes # (0.20-1.00) X 10*3/uL Potassium (3.5-5.1) mmol/L Chloride (98-107) mmol/L Carbon Dioxide (22-30) mmol/L BUN (9-20) mg/dL Creatinine (0.66-1.25) mg/dL Est GFR (CKD-EPI)AfAm (60.0-200.0) Est GFR (CKD-EPI)NonAf (60.0-200.0) Glucose (74-99) mg/dL POC Glucose (mg/dL) 115 H (75-99) mg/dL Plasma Lactic Acid Daryl (0.7-2.0) mmol/L Calcium (8.4-10.2) mg/dL AST (17-59) U/L Creatine Kinase (55-170) U/L Troponin I 0.057 H* 0.056 H* (0.000-0.034) ng/mL Total Protein (6.3-8.2) g/dL Albumin (3.8-4.9) g/dL Urine Protein (Negative) Urine Glucose (UA) (Negative) Urine Blood (Negative) Urine WBC (0-5) /hpf Urine Bacteria (None) /hpf Hyaline Casts (0-2) /lpf Urine Mucus (None) /hpf 03/28/22 03/28/22 03/28/22 Range/Units 15:32 22:28 22:28 WBC (3.8-10.6) k/uL Hgb (13.0-17.0) g/dL MCHC (32.0-37.0) g/dL Immature Gran # (0.00-0.04) X 10*3/uL Neutrophils # (1.3-7.7) k/uL Monocytes # (0.20-1.00) X 10*3/uL Potassium (3.5-5.1) mmol/L Chloride (98-107) mmol/L Carbon Dioxide (22-30) mmol/L BUN (9-20) mg/dL Creatinine (0.66-1.25) mg/dL Est GFR (CKD-EPI)AfAm (60.0-200.0) Est GFR (CKD-EPI)NonAf (60.0-200.0) Glucose (74-99) mg/dL POC Glucose (mg/dL) (75-99) mg/dL Plasma Lactic Acid Daryl 2.1 H* 2.4 H* (0.7-2.0) mmol/L Calcium (8.4-10.2) mg/dL AST (17-59) U/L Creatine Kinase (55-170) U/L Troponin I 0.056 H* (0.000-0.034) ng/mL Total Protein (6.3-8.2) g/dL Albumin (3.8-4.9) g/dL Urine Protein (Negative) Urine Glucose (UA) (Negative) Urine Blood (Negative) Urine WBC (0-5) /hpf Urine Bacteria (None) /hpf Hyaline Casts (0-2) /lpf Urine Mucus (None) /hpf 03/28/22 03/29/22 03/29/22 Range/Units 22:52 00:53 03:50 WBC 12.96 H (3.8-10.6) k/uL Hgb 12.8 L (13.0-17.0) g/dL MCHC 29.9 L (32.0-37.0) g/dL Immature Gran # 0.06 H (0.00-0.04) X 10*3/uL Neutrophils # 8.68 H (1.3-7.7) k/uL Monocytes # 1.51 H (0.20-1.00) X 10*3/uL Potassium (3.5-5.1) mmol/L Chloride 115 H (98-107) mmol/L Carbon Dioxide 19 L (22-30) mmol/L BUN 52 H (9-20) mg/dL Creatinine 3.95 H (0.66-1.25) mg/dL Est GFR (CKD-EPI)AfAm (60.0-200.0) Est GFR (CKD-EPI)NonAf (60.0-200.0) Glucose 135 H (74-99) mg/dL POC Glucose (mg/dL) 112 H (75-99) mg/dL Plasma Lactic Acid Daryl (0.7-2.0) mmol/L Calcium (8.4-10.2) mg/dL AST (17-59) U/L Creatine Kinase (55-170) U/L Troponin I (0.000-0.034) ng/mL Total Protein (6.3-8.2) g/dL Albumin (3.8-4.9) g/dL Urine Protein (Negative) Urine Glucose (UA) (Negative) Urine Blood (Negative) Urine WBC (0-5) /hpf Urine Bacteria (None) /hpf Hyaline Casts (0-2) /lpf Urine Mucus (None) /hpf 03/29/22 03/29/22 Range/Units 03:50 03:50 WBC (3.8-10.6) k/uL Hgb (13.0-17.0) g/dL MCHC (32.0-37.0) g/dL Immature Gran # (0.00-0.04) X 10*3/uL Neutrophils # (1.3-7.7) k/uL Monocytes # (0.20-1.00) X 10*3/uL Potassium (3.5-5.1) mmol/L Chloride 114 H (98-107) mmol/L Carbon Dioxide (22-30) mmol/L BUN 51.3 H (9-20) mg/dL Creatinine 3.8 H (0.66-1.25) mg/dL Est GFR (CKD-EPI)AfAm 17.4 L (60.0-200.0) Est GFR (CKD-EPI)NonAf 15.0 L (60.0-200.0) Glucose 117 H (74-99) mg/dL POC Glucose (mg/dL) (75-99) mg/dL Plasma Lactic Acid Daryl 2.6 H* (0.7-2.0) mmol/L Calcium (8.4-10.2) mg/dL AST 79 H (17-59) U/L Creatine Kinase (55-170) U/L Troponin I (0.000-0.034) ng/mL Total Protein 5.9 L (6.3-8.2) g/dL Albumin 3.7 L (3.8-4.9) g/dL Urine Protein (Negative) Urine Glucose (UA) (Negative) Urine Blood (Negative) Urine WBC (0-5) /hpf Urine Bacteria (None) /hpf Hyaline Casts (0-2) /lpf Urine Mucus (None) /hpf Microbiology - Last 24 Hours (Table) 03/28/22 13:35 Urine Culture - Final Urine,Clean Catch Assessment and Plan Plan: Acute encephalopathy likely metabolic sec to renal failure. Unclear etiology Could be secondary to his psychiatric chronic illness, has history of bipolar disorder Neurology consult Now better Acute rhabdomyolysis Hyperkalemia LESA and CKD 4 IV fluids Nephrology consulted, shirley inserted, US renal done--pending Avoid nephrotoxic meds Follow up CK and creatinine in the a.m. Chronic GERD/Reflux, Hyperlipidemia, Hypertension He doesn't seem to be taking his home medications Monitor off meds for now General weakness PT Dispo: clinical course to determine
--- NOTE | 2022-03-29 13:32 | US ---
EXAMINATION TYPE: US kidneys/renal and bladder DATE OF EXAM: 03/29/2022 COMPARISON: multiple renal US's, most recent 04/06/2019 CLINICAL HISTORY: jacqueline. EXAM MEASUREMENTS: Right Kidney: 9.3 x 6.0 x 4.9 cm Left Kidney: 8.4 x 3.7 x 3.6 cm Right Kidney: scattered echogenic foci throughout Left Kidney: echogenic and difficult to visualize, 2 cysts lower pole, largest measures 2.4 x 2.2 x 2 .3 cm Bladder: not seen, patient has catheter. IMPRESSION: 1. Bilateral renal echogenic foci may be small renal stones. No obstructing renal stones identified. 2. Inferior pole left renal cysts appear simple.
--- NOTE | 2022-03-29 14:17 | P.CNNES ---
History of Present Illness Consult date: 03/29/22 History of Present Illness: The patient is a 71-year-old male who is seen in neurologic consultation on March 29, 2022, via teleneurology. The patient is being seen because of acute mental status changes. History is obtained entirely from the chart. Apparently the patient was found on the floor in his home, surrounded by feces. Patient reportedly had last been known to be well, 2 days prior. The patient lives alone. The family found him in his home, confused. He was reportedly alert, restless, nonverbal and unable to follow commands. Workup in the emergency department revealed a normal CT scan of the brain. CT scan of the cervical spine revealed no signs of fracture. Laboratory evaluation revealed a markedly elevated BUN/creatinine and creatinine. Total CPK was elevated at 2386. White blood cell count elevated at 16.9. Urinalysis was positive for large blood and 9 white blood cells. Urine tox screen was negative. Alcohol level was negative. The patient was found to be in acute renal failure. Per the patient's nurse, last night, the patient was reportedly restless and confused. This morning, the patient is doing much better. He is awake and answering questions. The patient himself does not remember what happened. He does not recall feeling ill. He denies a past medical history. He denies taking medications at home. He denies falling. Past Medical History Past Medical History: GERD/Reflux, Hyperlipidemia, Hypertension, Musculoskeletal Disorder, Renal Disease, Sleep Apnea/CPAP/BIPAP Additional Past Medical History / Comment(s): uses CPAP History of Any Multi-Drug Resistant Organisms: None Reported Past Surgical History: Tonsillectomy Additional Past Surgical History / Comment(s): colonoscopy Past Anesthesia/Blood Transfusion Reactions: No Reported Reaction Past Psychological History: Bipolar Smoking Status: Unknown if ever smoked Past Alcohol Use History: Occasional Past Drug Use History: None Reported - Past Family History Mother Family Medical History: No Reported History Medications and Allergies Home Medications Medication Instructions Recorded Confirmed Type Amitriptyline HCl [Elavil] 75 mg PO HS 11/01/15 10/12/19 History Aspirin 81 mg PO DAILY 11/01/15 10/12/19 History Fluticasone Nasal [place] [Flonase 2 spr EA NOSTRIL DAILY 11/01/15 10/12/19 History Nasal [place]] Multivit-Min/FA/Lycopen/Lutein 1 tab PO DAILY 11/01/15 10/12/19 History [Centrum Silver Tablet] Pantoprazole Sodium [Protonix] 40 mg PO DAILY 11/01/15 10/12/19 History Topiramate [Topamax] 200 mg PO DAILY 11/01/15 10/12/19 History Ubidecarenone [Co Q-10] 100 mg PO DAILY 11/01/15 10/12/19 History Vitamin B Complex 1 cap PO DAILY 11/01/15 10/12/19 History diphenhydrAMINE [Benadryl] 25 mg PO HS 11/01/15 10/12/19 History Oxybutynin Xl [Ditropan XL] 5 mg PO HS 07/10/19 10/12/19 History Simvastatin [Zocor] 20 mg PO HS 07/10/19 10/12/19 History Hydrocodone/Acetaminophen [[place] 1 - 2 each PO Q4HR PRN #84 tab 07/21/19 10/12/19 Rx 5-325] Sodium Bicarbonate 1 tab PO BID 10/09/19 10/12/19 History Allergies Allergy/AdvReac Type Severity Reaction Status Date / Time No Known Allergies Allergy Verified 10/09/19 11:00 Physical Examination - Vital Signs Vital Signs: Vital Signs Temp Pulse Pulse Resp BP BP Pulse Ox 03/29/22 06:46 98.7 F 94 16 160/91 99 03/29/22 02:00 98.9 F 109 H 18 142/79 96 03/28/22 20:00 98.9 F 99 17 169/88 98 03/28/22 19:35 99 17 03/28/22 15:17 98.5 F 03/28/22 14:00 98.5 F 03/28/22 13:15 106 H 20 108/68 96 Intake and Output 03/28/22 03/29/22 03/29/22 22:59 06:59 14:59 Output Total 1900 983 Balance -1900 -983 Output: Urine 1900 500 Straight 950 Uretheral (Florez) 500 Post Void Residual 483 Other: Voiding Method Incontinent Indwelling Catheter Weight 90.718 kg Gen.: The patient is reclining in the bed. He is well-nourished, well-developed and in no acute distress. HEENT: Head is atraumatic, normocephalic. Fundus not visualized. There is no scleral icterus. Mucous membranes are moist. Neck: Supple without carotid bruits Heart: Regular rate and rhythm Lungs: Clear to auscultation Extremities: There are abrasions and ecchymosis on the lower extremities bilaterally. Neurological examination Mental status: The patient is awake and alert. He is oriented to his name and date of . He reports the current year to be "2019". He is oriented to his age, management development specialist, [facility] and city. He is not oriented to the current month. Cranial nerves: Pupils are equal at 3 mm and reactive. Visual mcmillan are full to confrontation. Extraocular movements are intact. There is no nystagmus. Facial sensation is intact. There is no facial asymmetry. Hearing is grossly intact. Uvula and palate are midline. Shoulder shrug is symmetric. Tongue protrudes midline. There is no evidence of bite. Motor: Upper extremity strength is 5/5. Bilateral hip flexors 4/5. Ankle plantar and dorsiflexors 5/5. Sensation: Intact to light touch throughout. There is no extinction with double simultaneous stimulation. Coordination: Finger to nose and rapid alternating movements are intact. Deep tendon reflexes: 2+/4+ throughout Gait: Not assessed Results - Laboratory Findings CBC and BMP: 03/29/22 03:50 03/29/22 03:50 Abnormal Lab Findings: Abnormal Labs 03/28/22 03/28/22 03/28/22 13:35 13:35 13:35 WBC 16.9 H Hgb MCHC Immature Gran # Neutrophils # 14.0 H Monocytes # Potassium 5.5 H Chloride 111 H Carbon Dioxide 18 L BUN 54 H Creatinine 4.28 H Est GFR (CKD-EPI)AfAm Est GFR (CKD-EPI)NonAf Glucose 134 H POC Glucose (mg/dL) Plasma Lactic Acid Daryl Calcium 10.5 H AST 139 H Creatine Kinase 2386 H* Troponin I Total Protein 8.6 H Albumin Urine Protein 2+ H Urine Glucose (UA) 3+ H Urine Blood Large H Urine WBC 13 H Urine Bacteria Rare H Hyaline Casts 4 H Urine Mucus Rare H 03/28/22 03/28/22 03/28/22 13:35 14:07 15:32 WBC Hgb MCHC Immature Gran # Neutrophils # Monocytes # Potassium Chloride Carbon Dioxide BUN Creatinine Est GFR (CKD-EPI)AfAm Est GFR (CKD-EPI)NonAf Glucose POC Glucose (mg/dL) 115 H Plasma Lactic Acid Daryl Calcium AST Creatine Kinase Troponin I 0.057 H* 0.056 H* Total Protein Albumin Urine Protein Urine Glucose (UA) Urine Blood Urine WBC Urine Bacteria Hyaline Casts Urine Mucus 03/28/22 03/28/22 03/28/22 15:32 22:28 22:28 WBC Hgb MCHC Immature Gran # Neutrophils # Monocytes # Potassium Chloride Carbon Dioxide BUN Creatinine Est GFR (CKD-EPI)AfAm Est GFR (CKD-EPI)NonAf Glucose POC Glucose (mg/dL) Plasma Lactic Acid Daryl 2.1 H* 2.4 H* Calcium AST Creatine Kinase Troponin I 0.056 H* Total Protein Albumin Urine Protein Urine Glucose (UA) Urine Blood Urine WBC Urine Bacteria Hyaline Casts Urine Mucus 03/28/22 03/29/22 03/29/22 22:52 00:53 03:50 WBC 12.96 H Hgb 12.8 L MCHC 29.9 L Immature Gran # 0.06 H Neutrophils # 8.68 H Monocytes # 1.51 H Potassium Chloride 115 H Carbon Dioxide 19 L BUN 52 H Creatinine 3.95 H Est GFR (CKD-EPI)AfAm Est GFR (CKD-EPI)NonAf Glucose 135 H POC Glucose (mg/dL) 112 H Plasma Lactic Acid Daryl Calcium AST Creatine Kinase Troponin I Total Protein Albumin Urine Protein Urine Glucose (UA) Urine Blood Urine WBC Urine Bacteria Hyaline Casts Urine Mucus 03/29/22 03/29/22 03:50 03:50 WBC Hgb MCHC Immature Gran # Neutrophils # Monocytes # Potassium Chloride 114 H Carbon Dioxide BUN 51.3 H Creatinine 3.8 H Est GFR (CKD-EPI)AfAm 17.4 L Est GFR (CKD-EPI)NonAf 15.0 L Glucose 117 H POC Glucose (mg/dL) Plasma Lactic Acid Daryl 2.6 H* Calcium AST 79 H Creatine Kinase Troponin I Total Protein 5.9 L Albumin 3.7 L Urine Protein Urine Glucose (UA) Urine Blood Urine WBC Urine Bacteria Hyaline Casts Urine Mucus Assessment and Plan Assessment: 1. Toxic encephalopathy likely secondary to acute renal failure 2. Possible seizure with post ictal state 3. Rhabdomyolysis 4. Medical noncompliance 5. Reported history of bipolar disorder Plan: 1. EEG has been ordered 2. Your medical treatment 3. Agree with psychiatry consultation Thank you for allowing us to participate in the care of this patient Dr. Mcfarland will assume neurologic coverage of this patient as of March 30, 2022 Time with Patient: Greater than 30 (Spent 40 minutes with patient via telemedicine)
[2022-03-29 14:47] LABS: Protein/Creatinine Ratio,Urine 0.622
[2022-03-29 14:50] LABS: Appearance,Urine Clear (Clear); Bacteria,Urine Rare /hpf; Bilirubin,Urine Negative (Negative); Blood,Urine Large (Negative); Color,Urine Light Yellow; Glucose,Urine (UA) 2+ (Negative); Ketones,Urine Negative (Negative); Leukocyte Esterase,Urine Large (Negative); Mucus,Urine Rare /hpf; Nitrite,Urine Negative (Negative); PH, Urine 5.5 (5.0-8.0); Protein,Urine 1+ (Negative); RBC,Urine 25 /hpf (0-5); Specific Gravity,Urine 1.014 (1.001-1.035); Squamous Epithelial Cell,Urine <1 /hpf (0-4); Urobilinogen,Urine <2.0 mg/dL (<2.0); WBC,Urine 61 /hpf (0-5)
[2022-03-29] MEDS: TAMSULOSIN 0.4 MG CAP.ER.24H PO SCH (16:52)
[2022-03-29] MEDS: ACETAMINOPHEN TAB 325 MG TAB PO PRN (21:33)
[2022-03-30] MEDS: SODIUM BICARBONATE TAB 650 MG TAB PO SCH ×3 (08:15→20:37)
[2022-03-30 09:17] LABS: Basophils # (A) 0.05 X 10*3/uL (0.00-0.10); Basophils % (A) 0.7 %; Eosinophils # (A) 0.34 X 10*3/uL (0.04-0.35); Eosinophils % (A) 4.5 %; HCT 36.6 % (39.6-50.0); HGB 11.3 g/dL (13.0-17.0); Immature Grans, Automated 0.5 %; Lymphocytes # (A) 1.44 X 10*3/uL (0.90-5.00); Lymphocytes % (A) 18.9 %; MCH 28.6 pg (27.0-32.0); MCHC 30.9 g/dL (32.0-37.0); MCV 92.7 fL (80.0-97.0); Mean Platelet Volume 10.4 fL (9.5-12.2); Monocytes # (A) 0.99 X 10*3/uL (0.20-1.00); NRBC Per 100 WBC 0 /100 WBCS (0.0-0.0); Neutrophils # (A) 4.75 X 10*3/uL (1.80-7.70); Neutrophils % (A) 62.4 %; Platelet Count 181 X 10*3/uL (140-440); RBC 3.95 X 10*6/uL (4.40-5.60); RDW 14.1 % (11.5-14.5); WBC 7.61 X 10*3/uL (4.50-10.00)
[2022-03-30 09:32] LABS: Magnesium 1.9 mg/dL (1.5-2.4)
[2022-03-30 09:48] LABS: African American GFR (CKD) 20.8 (60.0-200.0); Albumin 3.2 g/dL (3.8-4.9); Albumin/Globulin Ratio 1.6 (1.60-3.17); Anion Gap 9.7 mmol/L (10.00-18.00); BUN/Creat Ratio 12.97 Ratio (12.00-20.00); Blood Urea Nitrogen 42.8 mg/dL (9.0-27.0); Calcium 8.3 mg/dL (8.7-10.3); Carbon Dioxide 17.3 mmol/L (20.0-27.5); Non-African American GFR(CKD) 17.9 (60.0-200.0); Potassium 4.4 mmol/L (3.5-5.5); Total Bilirubin 0.2 mg/dL (0.30-1.20); Total Protein 5.2 g/dL (6.2-8.2)
--- NOTE | 2022-03-30 10:32 | EEG ---
ELECTROENCEPHALOGRAM REPORT DATE OF SERVICE: 03/30/2022 PREAMBLE: This is a 71-year-old male who was found on the floor surrounded by feces. The patient's last known well was a few days prior. When family found the patient, he was confused, restless, nonverbal. Patient's mentation now has completely returned back to normal. This study is performed to evaluate for any epileptiform activity. EEG FINDINGS: This is a 21-channel digital EEG recorded with video component, utilizing 10/20 international system with referential and bipolar montages. Background consists of well developed, well regulated, moderate voltage activity in 8 to 9 hertz alpha. Background is posterior-dominant and reactive to eye opening and closing. Background does not seem to be reactive to photic stimulation. Hyperventilation was not done. Different stages of sleep were not seen. No focal or generalized epileptiform activity was seen. IMPRESSION: This is a normal awake and drowsy EEG. No focal, lateralized or epileptiform activity was seen. MMODL / IJN: [id number] / [facility]
--- NOTE | 2022-03-30 10:48 | P.PN ---
Subjective Patient is seen in follow-up for acute kidney injury on chronic kidney disease. Renal function improving. Nonoliguric. Has Florez catheter for urinary retention. Hypercalcemia resolved. Oral intake fair. Denies chest pain or shortness of breath. Hemodynamically stable. Vital signs are stable. General: Awake. No acute distress. HEENT: Head exam is unremarkable. LUNGS: Breath sounds decreased. HEART: Rate and Rhythm are regular. ABDOMEN: Soft, no distention. EXTREMITITES: No edema. Objective - Vital Signs Vital signs: Vital Signs Temp 97.8 F 03/30/22 07:29 Pulse 69 03/30/22 07:30 Resp 17 03/30/22 07:30 BP 155/83 03/30/22 07:29 Pulse Ox 98 03/30/22 07:29 Intake & Output 03/29/22 03/30/22 03/30/22 18:59 06:59 18:59 Output Total 983 2000 Balance -983 -2000 Output: Urine 500 2000 Uretheral (Florez) 500 Post Void Residual 483 Other: Voiding Method Indwelling Catheter Indwelling Catheter Indwelling Catheter - Labs CBC & Chem 7: 03/30/22 06:20 03/30/22 06:20 Labs: Abnormal Lab Results - Last 24 Hours (Table) 03/29/22 03/30/22 03/30/22 Range/Units 12:51 06:20 06:20 RBC 3.95 L (4.40-5.60) X 10*6/uL Hgb 11.3 L (13.0-17.0) g/dL Hct 36.6 L (39.6-50.0) % MCHC 30.9 L (32.0-37.0) g/dL Chloride 112 H (96-109) mmol/L Carbon Dioxide 17.3 L (20.0-27.5) mmol/L Anion Gap 9.70 L (10.00-18.00) mmol/L BUN 42.8 H (9.0-27.0) mg/dL Creatinine 3.3 H (0.6-1.5) mg/dL Est GFR (CKD-EPI)AfAm 20.8 L (60.0-200.0) Est GFR (CKD-EPI)NonAf 17.9 L (60.0-200.0) Calcium 8.3 L (8.7-10.3) mg/dL Total Bilirubin 0.20 L (0.30-1.20) mg/dL AST 63 H (14-35) U/L ALT 54 H (10-49) U/L Creatine Kinase 279 H (35-257) U/L Total Protein 5.2 L (6.2-8.2) g/dL Albumin 3.2 L (3.8-4.9) g/dL Urine Protein 1+ H (Negative) Urine Glucose (UA) 2+ H (Negative) Urine Blood Large H (Negative) Ur Leukocyte Esterase Large H (Negative) Urine RBC 25 H (0-5) /hpf Urine WBC 61 H (0-5) /hpf Urine Bacteria Rare H (None) /hpf Urine Mucus Rare H (None) /hpf Microbiology - Last 24 Hours (Table) 03/28/22 13:35 Urine Culture - Final Urine,Clean Catch Assessment and Plan Plan: Assessment: 1. Acute kidney injury mostly prerenal improved with IV hydration. Creatinine was 4.28 on admission and is 3.3 today. Also component of urinary retention. No hydronephrosis noted on kidney ultrasound. Left kidney is atrophic. Bilateral small kidney stones noted. 2. Urinary retention status post Florez catheter placement. On Flomax. 3. Hypercalcemia secondary to volume contraction. Improved with IV hydration. Patient has history of hypercalcemia and workup in the past including a parathyroid nuclear scan was negative. Patient's Ta level was elevated for which he was seen by pulmonology and responded to a trial of prednisone at the time. Hypercalcemia resolved. CAT scan in 2018 did show numerous pulmonary nodules. 4. Chronic kidney disease stage IV secondary to nephrosclerosis, hypercalcemia- induced ATN. ?medullary sponge kidney with history of kidney stones. Patient's creatinine in November 2021 was 3.3. 5. Mild rhabdomyolysis secondary to fall. CK level improved. 6. History of bipolar disorder. 7. History of nephrolithiasis. 8. Metabolic acidosis secondary to acute kidney injury and IV fluids maintained on oral bicarb. Plan: Maintain IV fluids. Decrease rate to 75 mL an hour. Increase dose of oral bicarb. Maintain Florez catheter. Follow-up PTHrP. Check serum free light chains and electrophoresis studies. Check 1,25 D3 level. Workup for nephrolithiasis outpatient. Patient strongly advised to follow up. Pulmonology consult due to pulmonary nodules noted on prior computed tomography scan. Unsure if patient has followed up outpatient or not.
--- NOTE | 2022-03-30 13:42 | P.CNPUL ---
History of Present Illness Consult date: 03/30/22 Requesting physician: [facility] Chief complaint: Pulmonary nodules History of present illness: This is a 71-year-old white male patient with past medical history of hyperlipidemia, hypertension, bipolar disorder, sleep apnea on CPAP, chronic kidney disease stage IV, GERD/reflux, depressive disorder, anxiety, and chronic hypercalcemia. Patient came into the emergency department on 03/28/2022 for evaluation of altered mental status, patient's family found the patient on the floor sitting in his stool, and not being able to follow any commands and not able to speak. Patient was somewhat restless and mildly combative at the time. Chest x-ray on admission showed no acute pulmonary process. CT of the head and cervical spine showed no suspicious acute intracranial changes, and degenerative disc changes with endplate spurring at C5-6, and C5-7, and moderate to severe foraminal stenosis and no acute osseous abnormality. His admission blood work showed elevated white count of 16.9, hemoglobin of 15.3, coagulation profile PT with INR were within normal limits, potassium is 5.5, sodium is 145, chloride wa s 111, CO2 is 18, BUN is 54, creatinine is 4.28, lactic acid was 2.1, calcium level was 10.5, AST was 139, ALT was 39, alk phos was within normal limits at 77, CK-MB was 2386, troponins were 0.057, 0.056, and 0.056. Urinalysis showed large amount of blood, 2+ protein, 3+ glucose, 13 white blood cells, negative leuks, drug screen was negative, serum alcohol was less than 10. Urine culture showed no growth. Patient was afebrile, she was on room air the whole time, without any evidence of hypoxia, blood pressure had been stable, EKG showed sinus rhythm with possible right ventricular hypertrophy, nonspecific T-wave abnormality. Patient denies any difficulty breathing, no cough, no fever. P genevieve was seen by neurology for possibility of seizure with postictal state. EEG had been ordered, psychiatric and nephrology consultation were requested. Patient's acute kidney injury is improving with IV hydration, he had a Florez catheter placed for urinary retention, his hypercalcemia improved with IV hydration. Patient had been seen by Dr. Maier in the past for elevated Ta level, and computed tomography scan of the chest from 2019 had shown scattered nonenlarged mediastinal lymph nodes, no thoracic lymphadenopathy by CT size criteria, there were scattered pulmonary nodules measuring up to 6 mm, 9 nodules on the right, and 5 pulmonary nodules on the left measuring up to 5 mm. Sofi vated Ta level although could potentially indicate sarcoidosis was nondiagnostic and essentially nonspecific. Patient was seen in evaluation in the pulmonary clinic, with a recommendation to continue monitoring the calcium and Ta level and the renal function and pulmonary nodules. There was no r ecommendation for the lung biopsy at that point. Today's blood work showing white blood cell count 7.6, hemoglobin is 11.3, sodium is 139, potassium is 4.4, his renal function is improving, BUN is down to 42, creatinine is 3.3, his last lactic acid was 0.7, his AST has improved but ALT slightly worsened. Alk phos remains within normal limits, she remains on IV hydration with 0.0, satting at of 75 ML per hour, he was started on Flomax, sodium bicarbonate tablets, and this consult was initiated for Hx of pulmonary nodules seen in 2019 with the possibility of sarcoidosis as the cause of patient's hypercalcemia Review of Systems All systems: negative Constitutional: Reports lethargy, Reports weakness, Denies chills, Denies fever Eyes: denies blurred vision, denies pain Ears, nose, mouth and throat: Denies headache, Denies sore throat Cardiovascular: Denies chest pain, Denies shortness of breath Respiratory: Denies cough Gastrointestinal: Denies abdominal pain, Denies diarrhea, Denies nausea, Denies vomiting Genitourinary: Reports urinary retention Musculoskeletal: Reports gait dysfunction, Denies myalgias Integumentary: Denies pruritus, Denies rash Neurological: Reports change in mentation, Reports confusion, Reports gait dysfunction, Denies numbness, Denies weakness Psychiatric: Denies anxiety, Denies depression Endocrine: Denies fatigue, Denies weight change Past Medical History Past Medical History: GERD/Reflux, Hyperlipidemia, Hypertension, Musculoskeletal Disorder, Renal Disease, Sleep Apnea/CPAP/BIPAP Additional Past Medical History / Comment(s): uses CPAP History of Any Multi-Drug Resistant Organisms: None Reported Past Surgical History: Tonsillectomy Additional Past Surgical History / Comment(s): colonoscopy Past Anesthesia/Blood Transfusion Reactions: No Reported Reaction Past Psychological History: Bipolar Smoking Status: Unknown if ever smoked Past Alcohol Use History: Occasional Past Drug Use History: None Reported - Past Family History Mother Family Medical History: No Reported History Medications and Allergies Home Medications Medication Instructions Recorded Confirmed Type No Known Home Medications 03/30/22 03/30/22 History Allergies Allergy/AdvReac Type Severity Reaction Status Date / Time No Known Allergies Allergy Verified 03/30/22 10:02 Physical Exam Vitals: Vital Signs Temp Pulse Resp BP Pulse Ox 03/30/22 07:30 69 17 03/30/22 07:29 97.8 F 69 17 155/83 98 03/30/22 02:48 98.4 F 84 15 127/70 96 03/29/22 19:20 83 18 03/29/22 19:13 98.6 F 83 18 137/76 97 03/29/22 14:00 98.4 F 86 18 141/72 98 Intake and Output 03/29/22 03/30/22 03/30/22 22:59 06:59 14:59 Output Total 1999 -1999 Output: Urine 1999 Other: Voiding Method Indwelling Catheter Indwelling Catheter GENERAL EXAM: Alert, pleasant, 71-year-old white female, resting in bed, comfortable in no apparent distress. HEAD: Normocephalic/atraumatic. EYES: Normal reaction of pupils, equal size. Conjunctiva pink, sclera white. NOSE: Clear with pink turbinates. THROAT: No erythema or exudates. NECK: No masses, no JVD, no thyroid enlargement, no adenopathy. CHEST: No chest wall deformity. Symmetrical expansion. LUNGS: Equal air entry with no crackles, wheeze, rhonchi or dullness. CVS: Regular rate and rhythm, normal S1 and S2, no gallops, no murmurs, no rubs ABDOMEN: Soft, nontender. No hepatosplenomegaly, normal bowel sounds, no guarding or rigidity. EXTREMITIES: No clubbing, no edema, no cyanosis, 2+ pulses and upper and lower extremities. MUSCULOSKELETAL: Muscle strength and tone normal. SPINE: No scoliosis or deformity SKIN: No rashes CENTRAL NERVOUS SYSTEM: Alert and oriented -3. No focal deficits, tone is normal in all 4 extremities. PSYCHIATRIC: Alert and oriented -3. Appropriate affect. Intact judgment and insight. Results - Laboratory Findings CBC and BMP: 03/30/22 06:20 03/30/22 06:20 PT/INR, D-dimer PT 10.3 sec (9.0-12.0) 03/28/22 13:35 INR 0.9 (<1.2) 03/28/22 13:35 Abnormal lab findings: Abnormal Labs 03/28/22 03/28/22 03/28/22 13:35 13:35 13:35 WBC 16.9 H RBC Hgb Hct MCHC Immature Gran # Neutrophils # 14.0 H Monocytes # Potassium 5.5 H Chloride 111 H Carbon Dioxide 18 L Anion Gap BUN 54 H Creatinine 4.28 H Est GFR (CKD-EPI)AfAm Est GFR (CKD-EPI)NonAf Glucose 134 H POC Glucose (mg/dL) Plasma Lactic Acid Daryl Calcium 10.5 H Total Bilirubin AST 139 H ALT Creatine Kinase 2386 H* Troponin I Total Protein 8.6 H Albumin Urine Protein 2+ H Urine Glucose (UA) 3+ H Urine Blood Large H Ur Leukocyte Esterase Urine RBC Urine WBC 13 H Urine Bacteria Rare H Hyaline Casts 4 H Urine Mucus Rare H 03/28/22 03/28/22 03/28/22 13:35 14:07 15:32 WBC RBC Hgb Hct MCHC Immature Gran # Neutrophils # Monocytes # Potassium Chloride Carbon Dioxide Anion Gap BUN Creatinine Est GFR (CKD-EPI)AfAm Est GFR (CKD-EPI)NonAf Glucose POC Glucose (mg/dL) 115 H Plasma Lactic Acid Daryl Calcium Total Bilirubin AST ALT Creatine Kinase Troponin I 0.057 H* 0.056 H* Total Protein Albumin Urine Protein Urine Glucose (UA) Urine Blood Ur Leukocyte Esterase Urine RBC Urine WBC Urine Bacteria Hyaline Casts Urine Mucus 03/28/22 03/28/22 03/28/22 15:32 22:28 22:28 WBC RBC Hgb Hct MCHC Immature Gran # Neutrophils # Monocytes # Potassium Chloride Carbon Dioxide Anion Gap BUN Creatinine Est GFR (CKD-EPI)AfAm Est GFR (CKD-EPI)NonAf Glucose POC Glucose (mg/dL) Plasma Lactic Acid Daryl 2.1 H* 2.4 H* Calcium Total Bilirubin AST ALT Creatine Kinase Troponin I 0.056 H* Total Protein Albumin Urine Protein Urine Glucose (UA) Urine Blood Ur Leukocyte Esterase Urine RBC Urine WBC Urine Bacteria Hyaline Casts Urine Mucus 03/28/22 03/29/22 03/29/22 22:52 00:53 03:50 WBC 12.96 H RBC Hgb 12.8 L Hct MCHC 29.9 L Immature Gran # 0.06 H Neutrophils # 8.68 H Monocytes # 1.51 H Potassium Chloride 115 H Carbon Dioxide 19 L Anion Gap BUN 52 H Creatinine 3.95 H Est GFR (CKD-EPI)AfAm Est GFR (CKD-EPI)NonAf Glucose 135 H POC Glucose (mg/dL) 112 H Plasma Lactic Acid Daryl Calcium Total Bilirubin AST ALT Creatine Kinase Troponin I Total Protein Albumin Urine Protein Urine Glucose (UA) Urine Blood Ur Leukocyte Esterase Urine RBC Urine WBC Urine Bacteria Hyaline Casts Urine Mucus 03/29/22 03/29/22 03/29/22 03:50 03:50 12:51 WBC RBC Hgb Hct MCHC Immature Gran # Neutrophils # Monocytes # Potassium Chloride 114 H Carbon Dioxide Anion Gap BUN 51.3 H Creatinine 3.8 H Est GFR (CKD-EPI)AfAm 17.4 L Est GFR (CKD-EPI)NonAf 15.0 L Glucose 117 H POC Glucose (mg/dL) Plasma Lactic Acid Daryl 2.6 H* Calcium Total Bilirubin AST 79 H ALT Creatine Kinase Troponin I Total Protein 5.9 L Albumin 3.7 L Urine Protein 1+ H Urine Glucose (UA) 2+ H Urine Blood Large H Ur Leukocyte Esterase Large H Urine RBC 25 H Urine WBC 61 H Urine Bacteria Rare H Hyaline Casts Urine Mucus Rare H 03/30/22 03/30/22 06:20 06:20 WBC RBC 3.95 L Hgb 11.3 L Hct 36.6 L MCHC 30.9 L Immature Gran # Neutrophils # Monocytes # Potassium Chloride 112 H Carbon Dioxide 17.3 L Anion Gap 9.70 L BUN 42.8 H Creatinine 3.3 H Est GFR (CKD-EPI)AfAm 20.8 L Est GFR (CKD-EPI)NonAf 17.9 L Glucose POC Glucose (mg/dL) Plasma Lactic Acid Daryl Calcium 8.3 L Total Bilirubin 0.20 L AST 63 H ALT 54 H Creatine Kinase 279 H Troponin I Total Protein 5.2 L Albumin 3.2 L Urine Protein Urine Glucose (UA) Urine Blood Ur Leukocyte Esterase Urine RBC Urine WBC Urine Bacteria Hyaline Casts Urine Mucus - Diagnostic Findings Chest x-ray: report reviewed, image reviewed CT scan - chest: image reviewed Additional studies: EKG reviewed, CT of the head and cervical spine, renal ultrasound, and EEG results reviewed Assessment and Plan Plan: Assessment: #1. History of multiple subcentimeter pulmonary nodules in the past, with elevated ta level, rule out possibility of sarcoidosis #2. Fall at home, patient was found on the floor #3. Altered mental status on presentation, multifactorial, rule out possibility of seizure and postictal state, and toxic encephalopathy #4. Acute kidney injury, improving #5. Chronic kidney disease stage IV #6. Hypercalcemia, improving with IV hydration. Patient has a history of hypercalcemia and his past workup with the parathyroid nuclear scan was negative. Possibility of sarcoidosis in view of elevated ta level was considered and patient was given an responded to a trial of prednisone at the time #7. Rhabdomyolysis secondary to fall, improving #8. History of nephrolithiasis #9. History of bipolar disorder #10. Hypertension #11. GERD/reflux #12. Chronic hypercalcemia #13. Obstructive sleep apnea Plan: We'll obtain high resolution CT of the chest without contrast to follow-up on the pulmonary nodules seen on the computed tomography scan from 2019 Unable to obtain a contrast CT due to renal function Lab work has been reviewed, Calcium level has improved with IV hydration, Mentation has improved, renal function, Patient denies any pulmonary symptoms We'll continue to follow I have personally seen and examined the patient, performed the documentation and the assessment and plan as written. Number of minutes spent on the visit: [15] Time with Patient: Greater than 30
--- NOTE | 2022-03-30 14:00 | CT ---
EXAMINATION TYPE: CT chest wo con DATE OF EXAM: 03/30/2022 COMPARISON: Chest CT 04/13/2019 HISTORY: Shortness of breath, pneumonia CT DLP: 501.2 mGycm. Automated Exposure Control for Dose Reduction was Utilized. TECHNIQUE: CT scan of the thorax is performed without IV contrast. Limited scanning performed with h igh-resolution algorithm, patient performed in a supine position FINDINGS: LUNGS: The lungs are remarkable for scattered subcentimeter nodules some which are calcified. There is no pleural effusion or pneumothorax seen. The tracheobronchial tree is patent. Mild pleural thic kening present. No evident air bronchograms are groundglass attenuation. No evident bronchiectasis or thickened interlobular septal pleural lines to suggest interstitial lung disease. MEDIASTINUM: Lack of IV contrast is noted to limit evaluation for mediastinal and especially hilar ad enopathy. There are no definitive greater than 1 cm hilar or mediastinal lymph nodes. No cardiomega ly or pericardial effusion is seen. There are dense coronary artery calcifications present. Calcifications are seen within the bilateral kidneys. IMPRESSION: Old granulomatous disease. Coronary artery disease. Nephrolithiasis.
--- NOTE | 2022-03-30 14:50 | P.PN ---
Progress Note - Text Progress Note Date: 03/30/22 Interval History: Patient was seen today for psychiatric follow-up. Patient was apparently diag nosed with delirium and was apparently found in urine and feces at home in a disheveled state. Patient was confused when he came in however has been improving symptomatically. He was seen today watching television a cripple speak to advertising writer. He appeared to have improvement in his concentration had fair hygiene and grooming. He spoke briefly about him coming to the hospital. He claims that he does not know how he was found and why he was in that condition. He appeared to be somewhat concrete. He is denying any anxiety or mood today. He states that he is sleeping fairly at nighttime. Not endorsing any paranoia or delusions. At this time patient denies any suicidal or homical ideations, intent or plan. Patient denies any auditory, visual hallucinations and denies any paranoia or delusions. Mental Status Exam: General Appearance: Patient appears to be elderly, mustache, stated age is alert, directable, and cooperative. Behavior: Patient is calmly seated without any agitated behavior. [place]. Speech: Patient's speech is fluent and nonpressured. Monotone. Mood/Affect: Mood is improving mildly, affect is congruent and constricted. Suicidality/Homicidality: Patient denies having any suicidal or homicidal ideation intent or plan. Perceptions: Patient denies any visual hallucinations and denies any auditory hallucinations Though content/process: There is no evidence of any delusional thought content and thought process is linear and goal-directed. [place]. Memory and concentration: AOX3, grossly intact for the purposes of this session Judgment and insight: Improving mildly Assessment Delirum likely secondary to infection, resolved. Major neurocognitive disorder History of bipolar disorder Plan: -At this time patient DOES NOT meet criteria for inpatient psychiatric admission. -Delirium precautions recommended with patient including - avoiding use of narcotics and [employer] sedatives, limit anticholinergic medications when possible, frequent re-orientation, minimize use of restraints, open window shades during the day and close them at night -Would recommend the following medication changes/additions: No medications recommended at this time as patient is improved clinically. -grout worker to provide patient with outpatient mental health/psychiatry resources for appropriate follow up upon discharge -Communicated plan to patient's nurse -Psychiatry will sign off at this time -Please contact with any questions.
--- NOTE | 2022-03-30 14:54 | P.PN ---
Subjective Patient was evaluated bedside today is awake alert oriented 3. He is unable to provide too much information regarding his episode of altered mental status. Apparently his nephew was coming off her lunch and found him on the floor. He denied any episodes of urinary or fecal incontinence, chest pain or palpitations preceding this episode. Patient also denies any episodes of seizures however he was confused after this episode. Neurology was consulted. Objective - Vital Signs Vital signs: Vital Signs Temp 98.4 F 03/30/22 14:22 Pulse 94 03/30/22 14:22 Resp 17 03/30/22 14:22 BP 164/71 03/30/22 14:22 Pulse Ox 97 03/30/22 14:22 Intake & Output 03/29/22 03/30/22 03/30/22 18:59 06:59 18:59 Output Total 983 2000 Balance -983 -2000 Output: Urine 500 2000 Uretheral (Florez) 500 Post Void Residual 483 Other: Voiding Method Indwelling Catheter Indwelling Catheter Indwelling Catheter - Exam Constitutional: No acute distress, conversant Eyes:Anicteric sclerae, moist conjunctiva, no lid-lag, PERRLA, ENMT: Oropharynx clear, no erythema, exudates Neck: Supple, FROM, no masses, or JVD, No carotid bruits, No thyromegaly Lungs: Clear to auscultation, Clear to percussion, Normal respiratory effort, no accessory muscle use Cardiovascular: Heart regular in rate and rhythm, No murmurs, gallops, or rubs, No peripheral edema Abdominal: Soft, Nontender, no guarding, rebound or rigidity, Normoactive bowel sounds, No hepatomegaly, No splenomegaly, No palpable mass Skin: Normal temperature, tone, texture, turgor, no induration, No subcutaneous nodules, No rash, lesions, No ulcers Extremities: No digital cyanosis, No clubbing, Pedal pulses intact and symmetrical, Radial pulses intact and symmetrical, No calf tenderness Neuro: Awake alert oriented 3. - Labs CBC & Chem 7: 03/30/22 06:20 03/30/22 06:20 Labs: Abnormal Lab Results - Last 24 Hours (Table) 03/29/22 03/30/22 03/30/22 Range/Units 12:51 06:20 06:20 RBC 3.95 L (4.40-5.60) X 10*6/uL Hgb 11.3 L (13.0-17.0) g/dL Hct 36.6 L (39.6-50.0) % MCHC 30.9 L (32.0-37.0) g/dL Chloride 112 H (96-109) mmol/L Carbon Dioxide 17.3 L (20.0-27.5) mmol/L Anion Gap 9.70 L (10.00-18.00) mmol/L BUN 42.8 H (9.0-27.0) mg/dL Creatinine 3.3 H (0.6-1.5) mg/dL Est GFR (CKD-EPI)AfAm 20.8 L (60.0-200.0) Est GFR (CKD-EPI)NonAf 17.9 L (60.0-200.0) Calcium 8.3 L (8.7-10.3) mg/dL Total Bilirubin 0.20 L (0.30-1.20) mg/dL AST 63 H (14-35) U/L ALT 54 H (10-49) U/L Creatine Kinase 279 H (35-257) U/L Total Protein 5.2 L (6.2-8.2) g/dL Albumin 3.2 L (3.8-4.9) g/dL Urine Protein 1+ H (Negative) Urine Glucose (UA) 2+ H (Negative) Urine Blood Large H (Negative) Ur Leukocyte Esterase Large H (Negative) Urine RBC 25 H (0-5) /hpf Urine WBC 61 H (0-5) /hpf Urine Bacteria Rare H (None) /hpf Urine Mucus Rare H (None) /hpf Assessment and Plan Assessment: Assessment: #1 metabolic encephalopathy cause unclear #2 rhabdomyolysis #3 acute kidney injury on COPD stage IV #4 GERD/reflux #5 hyperlipidemia #6 essential hypertension #7 history of multiple subcentimeter pulmonary nodules Plan: -Admit to medicine for close monitoring -Aspiration/fall precaution -Neurology consulted for further recommendation. -Normal saline 75 mL an hour -Monitor creatinine daily -Lactic acidosis resolved -Pulmonary on board obtaining high-resolution CT of the chest without contrast -DVT prophylaxis heparin 3 times a day
--- NOTE | 2022-03-30 15:27 | P.PN ---
Subjective Progress Note Date: 03/30/22 Patient initially seen by Dr. Saul. Please refer to earlier for details. Patient admitted with altered mental status, found down on the floor in the kitchen. Last known well was 2 days prior. He was surrounded by feces and possible some urine. No tongue bite. Patient was diagnosed with possible toxic metabolic encephalopathy. Patient has acute renal failure, possible seizure secondary to uremia. I reviewed the labs, patient does have chronic renal insufficiency, which was slightly worse, probably not the cause of the seizure. EEG was ordered. Patient does not take any medication at home. No alcohol use, only very seldom when he has social interaction. Patient's brother and [id number] were present today. Patient states he has history of back surgery 5 years ago. He used to take a lot of pain medications but has not taken any for last 1 year. Objective - Vital Signs Vital signs: Vital Signs Temp 98.4 F 03/30/22 14:22 Pulse 94 03/30/22 14:22 Resp 17 03/30/22 14:22 BP 164/71 03/30/22 14:22 Pulse Ox 97 03/30/22 14:22 Intake & Output 03/29/22 03/30/22 03/30/22 18:59 06:59 18:59 Output Total 983 2000 Balance -983 -2000 Output: Urine 500 2000 Uretheral (Florez) 500 Post Void Residual 483 Other: Voiding Method Indwelling Catheter Indwelling Catheter Indwelling Catheter - Exam Patient's mental status, speech and language functions are normal. He knows it is March 2022 and that he is in [facility] in [place] and name of the current president. Speech and language are normal. Visual mcmillan are full. Face is symmetric. No ataxia. - Labs CBC & Chem 7: 03/30/22 06:20 03/30/22 06:20 Labs: Abnormal Lab Results - Last 24 Hours (Table) 03/30/22 03/30/22 Range/Units 06:20 06:20 RBC 3.95 L (4.40-5.60) X 10*6/uL Hgb 11.3 L (13.0-17.0) g/dL Hct 36.6 L (39.6-50.0) % MCHC 30.9 L (32.0-37.0) g/dL Chloride 112 H (96-109) mmol/L Carbon Dioxide 17.3 L (20.0-27.5) mmol/L Anion Gap 9.70 L (10.00-18.00) mmol/L BUN 42.8 H (9.0-27.0) mg/dL Creatinine 3.3 H (0.6-1.5) mg/dL Est GFR (CKD-EPI)AfAm 20.8 L (60.0-200.0) Est GFR (CKD-EPI)NonAf 17.9 L (60.0-200.0) Calcium 8.3 L (8.7-10.3) mg/dL Total Bilirubin 0.20 L (0.30-1.20) mg/dL AST 63 H (14-35) U/L ALT 54 H (10-49) U/L Creatine Kinase 279 H (35-257) U/L Total Protein 5.2 L (6.2-8.2) g/dL Albumin 3.2 L (3.8-4.9) g/dL Assessment and Plan Assessment: 1. Episode of unresponsiveness with finding patient in the kitchen with feces on around. Rule out unwitnessed seizure. Toxic encephalopathy also in the differential due to acute on chronic renal failure. 2. Possible seizure with post ictal state 3. Rhabdomyolysis 4. Medical noncompliance 5. Reported history of bipolar disorder Plan: 1. EEG is performed today, which is normal awake and drowsy. No epileptiform activity was seen. 2. MRI of brain to evaluate for any structural abnormality. 3. We will not place patient on antiepileptic medication if above workup is negative. 4. Your medical treatment 5. Patient and his brother and [id number] were informed of [place] state law of no driving unless seizure free for 6 months, climbing ladders, operating dangerous machinery or unsupervised swimming. 6. We will follow.
[2022-03-30] MEDS: HEPARIN SODIUM,PORCINE/PF 5,000 UNIT/0.5 ML SYRINGE SQ SCH ×2 (17:58→23:29)
[2022-03-30] MEDS: TAMSULOSIN 0.4 MG CAP.ER.24H PO SCH (17:59)
[2022-03-30] MEDS: ACETAMINOPHEN TAB 325 MG TAB PO PRN (18:01)
[2022-03-30] MEDS: SODIUM CHLORIDE 0.9% 1,000 ML IV SCH ×2 (20:07→20:08)
[2022-03-30] MEDS ORDERED: polyethylene glycoL 3350 17 GM POWD.PACK PO STA (22:12)
[2022-03-31] MEDS: HEPARIN SODIUM,PORCINE/PF 5,000 UNIT/0.5 ML SYRINGE SQ SCH ×3 (07:47→23:34)
[2022-03-31] MEDS: SODIUM CHLORIDE 0.9% 1,000 ML IV SCH (07:47)
[2022-03-31] MEDS: SODIUM BICARBONATE TAB 650 MG TAB PO SCH ×3 (07:47→21:13)
[2022-03-31 09:37] LABS: Magnesium 1.9 mg/dL (1.5-2.4); Protein, Total 5.5 g/dL (6.2-8.2)
[2022-03-31 09:40] LABS: African American GFR (CKD) 22.2 (60.0-200.0); Albumin 3.4 g/dL (3.8-4.9); Albumin/Globulin Ratio 1.61 (1.60-3.17); BUN/Creat Ratio 10.58 Ratio (12.00-20.00); Calcium 8.6 mg/dL (8.7-10.3); Carbon Dioxide 18.9 mmol/L (20.0-27.5); Globulin 2.1 g/dL (1.6-3.3); Non-African American GFR(CKD) 19.2 (60.0-200.0); Potassium 4.5 mmol/L (3.5-5.5); Total Bilirubin 0.3 mg/dL (0.30-1.20); Total Protein 5.4 g/dL (6.2-8.2)
--- NOTE | 2022-03-31 11:01 | P.PN ---
Subjective Patient is seen in follow-up for acute kidney injury on chronic kidney disease. Renal function improving. Nonoliguric. Has Florez catheter for urinary retention. Hypercalcemia resolved. Oral intake fair. Denies chest pain or shortness of breath. Hemodynamically stable. No active complaints. Vital signs are stable. General: Awake. No acute distress. HEENT: Head exam is unremarkable. LUNGS: Breath sounds decreased. HEART: Rate and Rhythm are regular. ABDOMEN: Soft, no distention. EXTREMITITES: No edema. Objective - Vital Signs Vital signs: Vital Signs Temp 98.3 F 03/31/22 07:02 Pulse 91 03/31/22 07:02 Resp 18 03/31/22 07:02 BP 136/78 03/31/22 07:02 Pulse Ox 97 03/31/22 07:02 Intake & Output 03/30/22 03/31/22 03/31/22 18:59 06:59 18:59 Intake Total 1050 Output Total 5100 Balance 1050 -5100 Intake: Intake, IV Titration 600 Amount Sodium Chloride 0.9% 1, 600 000 ml @ 75 mls/hr IV . [id number] [facility] Rx#:[id number] Oral 450 Output: Urine 5100 Other: Voiding Method Indwelling Catheter Indwelling Catheter Indwelling Catheter # Bowel Movements 1 - Labs CBC & Chem 7: 03/30/22 06:20 03/31/22 05:09 Labs: Abnormal Lab Results - Last 24 Hours (Table) 03/31/22 03/31/22 Range/Units 05:09 05:09 Chloride 112 H (96-109) mmol/L Carbon Dioxide 18.9 L (20.0-27.5) mmol/L BUN 33.0 H (9.0-27.0) mg/dL Creatinine 3.1 H (0.6-1.5) mg/dL Est GFR (CKD-EPI)AfAm 22.2 L (60.0-200.0) Est GFR (CKD-EPI)NonAf 19.2 L (60.0-200.0) BUN/Creatinine Ratio 10.58 L (12.00-20.00) Ratio Calcium 8.6 L (8.7-10.3) mg/dL AST 76 H (14-35) U/L ALT 88 H (10-49) U/L Total Protein 5.4 L (6.2-8.2) g/dL Total Protein (PEP) 5.5 L (6.2-8.2) g/dL Albumin 3.4 L (3.8-4.9) g/dL Assessment and Plan Plan: Assessment: 1. Acute kidney injury mostly prerenal improved with IV hydration. Creatinine was 4.28 on admission and is 3.1 today. Also component of urinary retention. No hydronephrosis noted on kidney ultrasound. Left kidney is atrophic. Bilateral small kidney stones noted. 2. Urinary retention status post Florez catheter placement. On Flomax. 3. Hypercalcemia secondary to volume contraction. Improved with IV hydration. Patient has history of hypercalcemia and workup in the past including a parathyroid nuclear scan was negative. Patient's Ta level was elevated for which he was seen by pulmonology and responded to a trial of prednisone at the time. Hypercalcemia resolved. CAT scan in 2019 did show numerous pulmonary nodules - CT done this admission shows old granulomatous disease. 4. Chronic kidney disease stage IV secondary to nephrosclerosis, hypercalcemia- induced ATN. ?medullary sponge kidney with history of kidney stones. Patient's creatinine in November 2021 was 3.3. 5. Mild rhabdomyolysis secondary to fall. CK level improved. 6. History of bipolar disorder. 7. History of nephrolithiasis. 8. Metabolic acidosis secondary to acute kidney injury and IV fluids maintained on oral bicarb. Plan: Maintain IV fluids. Maintain Florez catheter. Follow-up PTHrP. Follow-up serum free light chains and electrophoresis studies. Follow-up 1,25 D3 level. Workup for nephrolithiasis outpatient. Patient strongly advised to follow up. MRI of the brain pending.
--- NOTE | 2022-03-31 11:57 | P.PN ---
Subjective Progress Note Date: 03/31/22 Principal diagnosis: Pulmonary nodules This is a 71-year-old white male patient with past medical history of hyperlipidemia, hypertension, bipolar disorder, sleep apnea on CPAP, chronic kidney disease stage IV, GERD/reflux, depressive disorder, anxiety, and chronic hypercalcemia. Patient came into the emergency department on 03/28/2022 for evaluation of altered mental status, patient's family found the patient on the floor sitting in his stool, and not being able to follow any commands and not able to speak. Patient was somewhat restless and mildly combative at the time. Chest x-ray on admission showed no acute pulmonary process. CT of the head and cervical spine showed no suspicious acute intracranial changes, and degenerative disc changes with endplate spurring at C5-6, and C5-7, and moderate to severe foraminal stenosis and no acute osseous abnormality. His admission blood work showed elevated white count of 16.9, hemoglobin of 15.3, coagulation profile PT with INR were within normal limits, potassium is 5.5, sodium is 145, chloride was 111, CO2 is 18, BUN is 54, creatinine is 4.28, lactic acid was 2.1, calcium level was 10.5, AST was 139, ALT was 39, alk phos was within normal limits at 77, CK-MB was 2386, troponins were 0.057, 0.056, and 0.056. Urinalysis showed large amount of blood, 2+ protein, 3+ glucose, 13 white blood cells, negative leuks, drug screen was negative, serum alcohol was less than 10. Urine culture showed no growth. Patient was afebrile, she was on room air the whole time, without any evidence of hypoxia, blood pressure had been stable, EKG showed sinus rhythm with possible right ventricular hypertrophy, nonspecific T-wave abnormality. Patient denies any difficulty breathing, no cough, no fever. Patient was seen by neurology for possibility of seizure with postictal state. EEG had been ordered, psychiatric and nephrology consultation were requested. Patient's acute kidney injury is improving with IV hydration, he had a Florez catheter placed for urinary retention, his hypercalcemia improved with IV hydration. Patient had been seen by Dr. Maier in the past for elevated Ta level, and computed tomography scan of the chest from 2019 had shown scattered nonenlarged mediastinal lymph nodes, no thoracic lymphadenopathy by CT size criteria, there were scattered pulmonary nodules measuring up to 6 mm, 9 nodules on the right, and 5 pulmonary nodules on the left measuring up to 5 mm. Elevated Ta level although could potentially indicate sarcoidosis was nondiagnostic and essentially nonspecific. Patient was seen in evaluation in the pulmonary clinic, with a recommendation to continue monitoring the calcium and Ta level and the renal function and pulmonary nodules. There was no recommendation for the lung biopsy at that point. Today's blood work showing white blood cell count 7.6, hemoglobin is 11.3, sodium is 139, potassium is 4.4, his renal function is improving, BUN is down to 42, creatinine is 3.3, his last lactic acid was 0.7, his AST has improved but ALT slightly worsened. Alk phos remains within normal limits, she remains on IV hydration with 0.0, satting at of 75 ML per hour, he was started on Flomax, sodium bicarbonate tablets, and this consult was initiated for Hx of pulmonary nodules seen in 2019 with the possibility of sarcoidosis as the cause of patient's hypercalcemia On 03/31/2022 patient seen in follow-up. He is awake and alert, in no acute distress, looks more alert, in no acute distress, breathing comfortably, no specific complaints. No nausea or vomiting, no abdominal pain, room air pulse ox is 97-100%, patient has been afebrile, breathing is nonlabored. Brain MRI has been completed, results are pending. We repeated a high resolution chest CT without contrast for follow-up on pulmonary nodules present since 2018, with questionable sarcoidosis. Follow-up CT scan of the chest on 03/30/2022 showed scattered subcentimeter nodules, which were calcified, no pleural effusion or pneumothorax, mild pleural thickening, and evaluation of mediastinal and hilar adenopathy was not possible related to lack of IV contrast. There were calcifications seen within the bilateral kidneys. Overall these pulmonary nodules are stable compared the previous computed tomography scan of the chest from March 2019, they are nonspecific, indicating old granulomatous disease. Clinically patient is stable, feeling better today. Today's labs have been reviewed, sodium is 141, potassium is 4.5, chloride is 112, CO2 is 18, BUN is 33, creatinine is 3.1, calcium level was 8.6, AST was 76, ALT was 88. Patient remains on IV hydration with 0.9 normal saline at rate of 75 ML per hour, remains on oral bicarbonate replacement, he is on Flomax. Nephrology service is following. Objective - Vital Signs Vital signs: Vital Signs Temp 98.3 F 03/31/22 07:02 Pulse 91 03/31/22 07:02 Resp 18 03/31/22 07:02 BP 136/78 03/31/22 07:02 Pulse Ox 97 03/31/22 07:02 Intake & Output 03/30/22 03/31/22 03/31/22 18:59 06:59 18:59 Intake Total 1050 Output Total 5100 Balance 1050 -5100 Intake: Intake, IV Titration 600 Amount Sodium Chloride 0.9% 1, 600 000 ml @ 75 mls/hr IV . [id number] [facility] Rx#:[id number] Oral 450 Output: Urine 5100 Other: Voiding Method Indwelling Catheter Indwelling Catheter Indwelling Catheter # Bowel Movements 1 - Exam GENERAL EXAM: Alert, pleasant, 71-year-old white female, resting in bed, with pulse ox of 97-100% comfortable in no apparent distress. HEAD: Normocephalic/atraumatic. EYES: Normal reaction of pupils, equal size. Conjunctiva pink, sclera white. NOSE: Clear with pink turbinates. THROAT: No erythema or exudates. NECK: No masses, no JVD, no thyroid enlargement, no adenopathy. CHEST: No chest wall deformity. Symmetrical expansion. LUNGS: Equal air entry with no crackles, wheeze, rhonchi or dullness. CVS: Regular rate and rhythm, normal S1 and S2, no gallops, no murmurs, no rubs ABDOMEN: Soft, nontender. No hepatosplenomegaly, normal bowel sounds, no guarding or rigidity. EXTREMITIES: No clubbing, no edema, no cyanosis, 2+ pulses and upper and lower extremities. MUSCULOSKELETAL: Muscle strength and tone normal. SPINE: No scoliosis or deformity SKIN: No rashes CENTRAL NERVOUS SYSTEM: Alert and oriented -3. No focal deficits, tone is normal in all 4 extremities. PSYCHIATRIC: Alert and oriented -3. Appropriate affect. Intact judgment and insight. - Labs CBC & Chem 7: 03/30/22 06:20 03/31/22 05:09 Labs: Abnormal Lab Results - Last 24 Hours (Table) 03/31/22 03/31/22 Range/Units 05:09 05:09 Chloride 112 H (96-109) mmol/L Carbon Dioxide 18.9 L (20.0-27.5) mmol/L BUN 33.0 H (9.0-27.0) mg/dL Creatinine 3.1 H (0.6-1.5) mg/dL Est GFR (CKD-EPI)AfAm 22.2 L (60.0-200.0) Est GFR (CKD-EPI)NonAf 19.2 L (60.0-200.0) BUN/Creatinine Ratio 10.58 L (12.00-20.00) Ratio Calcium 8.6 L (8.7-10.3) mg/dL AST 76 H (14-35) U/L ALT 88 H (10-49) U/L Total Protein 5.4 L (6.2-8.2) g/dL Total Protein (PEP) 5.5 L (6.2-8.2) g/dL Albumin 3.4 L (3.8-4.9) g/dL Assessment and Plan Plan: Assessment: #1. History of multiple subcentimeter pulmonary nodules in the past, with elevated ta level, with suggestion of sarcoidosis. Follow-up high resolution computed tomography scan of the chest from 03/30/2022 showed stable scattered subcentimeter nodules some of which were calcified, indicating old granulomatous disease. There was limited evaluation for mediastinal and especially hilar adenopathy in view of noncontrast computed tomography scan of the chest however the findings are nonspecific and indicative of old granulomatous disease. #2. Fall at home, patient was found on the floor #3. Altered mental status on presentation, multifactorial, rule out possibility of seizure and postictal state, and toxic encephalopathy, significantly improved #4. Acute kidney injury, improving #5. Chronic kidney disease stage IV #6. Hypercalcemia, improving with IV hydration. Patient has a history of hypercalcemia and his past workup with the parathyroid nuclear scan was negative. Possibility of sarcoidosis in view of elevated ta level was considered and patient was given an responded to a trial of prednisone at the time #7. Rhabdomyolysis secondary to fall, improving #8. History of nephrolithiasis #9. History of bipolar disorder #10. Hypertension #11. GERD/reflux #12. Chronic hypercalcemia #13. Obstructive sleep apnea Plan: High resolution CT of the chest was reviewed, and the findings showed stable subcentimeter pulmonary nodules, some of which are calcified indicating old granulomatous disease The findings have been stable since 2019, nonspecific, and not indicative of any active sarcoidosis Today's labs have been reviewed Clinically patient has improved Renal function is improving Calcium was 8.6 Mentation has significantly improved Patient denies any specific complaints Patient may be considered for discharge home when cleared by other consultants on the case Otherwise he can follow up with Dr. Maier in the office in 2-3 weeks after discharge I have personally seen and examined the patient, performed the documentation and the assessment and plan as written. Number of minutes spent on the visit: [10] Time with Patient: Less than 30
--- NOTE | 2022-03-31 12:49 | P.PN ---
Subjective She was examined about serotonin accompanying of any worsening symptomatology. Continues a Florez catheter in place he denies any episodes of confusion, chest pain, palpitations, nausea vomiting. Also denies any focal neurologic deficits. Objective - Vital Signs Vital signs: Vital Signs Temp 98.3 F 03/31/22 07:02 Pulse 91 03/31/22 07:02 Resp 18 03/31/22 07:02 BP 136/78 03/31/22 07:02 Pulse Ox 97 03/31/22 07:02 Intake & Output 03/30/22 03/31/22 03/31/22 18:59 06:59 18:59 Intake Total 1050 Output Total 5100 Balance 1050 -5100 Intake: Intake, IV Titration 600 Amount Sodium Chloride 0.9% 1, 600 000 ml @ 75 mls/hr IV . [id number] [facility] Rx#:[id number] Oral 450 Output: Urine 5100 Other: Voiding Method Indwelling Catheter Indwelling Catheter Indwelling Catheter # Bowel Movements 1 - Exam Constitutional: No acute distress, conversant Eyes:Anicteric sclerae, moist conjunctiva, no lid-lag, PERRLA, ENMT: Oropharynx clear, no erythema, exudates Neck: Supple, FROM, no masses, or JVD, No carotid bruits, No thyromegaly Lungs: Clear to auscultation, Clear to percussion, Normal respiratory effort, no accessory muscle use Cardiovascular: Heart regular in rate and rhythm, No murmurs, gallops, or rubs, No peripheral edema Abdominal: Soft, Nontender, no guarding, rebound or rigidity, Normoactive bowel sounds, No hepatomegaly, No splenomegaly, No palpable mass Skin: Normal temperature, tone, texture, turgor, no induration, No subcutaneous nodules, No rash, lesions, No ulcers Extremities: No digital cyanosis, No clubbing, Pedal pulses intact and symmetrical, Radial pulses intact and symmetrical, No calf tenderness Neuro: Awake alert oriented 3. Florez catheter place - Labs CBC & Chem 7: 03/30/22 06:20 03/31/22 05:09 Labs: Abnormal Lab Results - Last 24 Hours (Table) 03/31/22 03/31/22 Range/Units 05:09 05:09 Chloride 112 H (96-109) mmol/L Carbon Dioxide 18.9 L (20.0-27.5) mmol/L BUN 33.0 H (9.0-27.0) mg/dL Creatinine 3.1 H (0.6-1.5) mg/dL Est GFR (CKD-EPI)AfAm 22.2 L (60.0-200.0) Est GFR (CKD-EPI)NonAf 19.2 L (60.0-200.0) BUN/Creatinine Ratio 10.58 L (12.00-20.00) Ratio Calcium 8.6 L (8.7-10.3) mg/dL AST 76 H (14-35) U/L ALT 88 H (10-49) U/L Total Protein 5.4 L (6.2-8.2) g/dL Total Protein (PEP) 5.5 L (6.2-8.2) g/dL Albumin 3.4 L (3.8-4.9) g/dL Assessment and Plan Assessment: Assessment: #1 metabolic encephalopathy cause unclear #2 rhabdomyolysis-resolved #3 acute kidney injury on COPD stage IV #4 GERD/reflux #5 hyperlipidemia #6 essential hypertension #7 history of multiple subcentimeter pulmonary nodules Plan: -Admit to medicine for close monitoring -Aspiration/fall precaution -Florez catheter in place we'll follow with nephrology regarding removal monitoring. Pending discharge recommendations from nephrology. -Continue Flomax -MRI pending -Neurology consulted for further recommendation. -Normal saline 75 mL an hour -Pulmonary on board -DVT prophylaxis heparin 3 times a day
--- NOTE | 2022-03-31 13:14 | MR ---
MR brain without contrast HISTORY: New onset seizure Multiplanar multisequence imaging through the brain, correlation to CT brain dated 03/28/2022 There is no restricted diffusion to suggest subacute ischemia. Cortical atrophy is again noted. Confl uent pericallosal, scattered subcortical hyperintensities are present on inversion recovery T2-weight ed sequences, some increased signal also noted in the d[place]. There is no hemorrhage or hydrocephalus. There are expected vascular flow voids present. The corpus callosum, pituitary, cervical medullary ju nction, cerebellopontine angles are normal. Inflammatory changes are present within the ethmoid air c ells. Orbits show symmetric appearance. impression: Nonspecific white matter demyelination may be due to chronic small vessel ischemia, there is age-related atrophy, mild sinus disease
[2022-03-31] MEDS: TAMSULOSIN 0.4 MG CAP.ER.24H PO SCH (16:48)
--- NOTE | 2022-03-31 17:23 | XR ---
EXAMINATION TYPE: XR lumbar spine 2 or 3V DATE OF EXAM: 03/31/2022 4:45 PM INDICATION: Patient age:Male; 71 years old; Reason for study: left leg pain; COMPARISON: CT 04/13/2019 TECHNIQUE: The lumbar spine was examined in frontal and lateral and coned and L5-S1 views. FINDINGS: Fixation hardware L4, L5 and S1 with hardware intact. There is grade 3 anterolisthesis of L 5 on S1 which is fixation hardware in place and intact. Additional multilevel disc degeneration benites es are seen throughout the spine. Bilateral spondylolysis better appreciated on prior CTs. No evidenc e of acute fracture. Atherosclerosis of the arterial vasculature. The neural foramen are grossly curtis nt given limitations of radiography. IMPRESSION: No evidence for acute fracture. Fixation hardware in place and intact.
[2022-04-01] MEDS: SODIUM CHLORIDE 0.9% 1,000 ML IV SCH ×2 (05:32→21:41)
[2022-04-01] MEDS: SODIUM BICARBONATE TAB 650 MG TAB PO SCH ×3 (07:02→21:42)
[2022-04-01] MEDS: HEPARIN SODIUM,PORCINE/PF 5,000 UNIT/0.5 ML SYRINGE SQ SCH ×2 (07:02→17:05)
[2022-04-01] MEDS: ACETAMINOPHEN TAB 325 MG TAB PO PRN (07:43)
[2022-04-01 09:40] LABS: Albumin 3.4 g/dL (3.8-4.9); Albumin/Globulin Ratio 1.42 (1.60-3.17); Anion Gap 10.8 mmol/L (10.00-18.00); BUN/Creat Ratio 9.79 Ratio (12.00-20.00); Blood Urea Nitrogen 33.3 mg/dL (9.0-27.0); Calcium 9.4 mg/dL (8.7-10.3); Carbon Dioxide 20.2 mmol/L (20.0-27.5); Globulin 2.4 g/dL (1.6-3.3); Non-African American GFR(CKD) 17.3 (60.0-200.0); Potassium 4.4 mmol/L (3.5-5.5); Total Bilirubin 0.3 mg/dL (0.30-1.20); Total Protein 5.8 g/dL (6.2-8.2)
--- NOTE | 2022-04-01 10:37 | P.PN ---
Subjective Patient was examined at bedside today not complaining of any worsening symptomatology. He is scheduled for prolonged EEG today case discussed with RN and patient at bedside. Objective - Vital Signs Vital signs: Vital Signs Temp 98.1 F 04/01/22 08:00 Pulse 94 04/01/22 08:00 Resp 16 04/01/22 08:00 BP 146/94 04/01/22 08:00 Pulse Ox 97 04/01/22 08:00 Intake & Output 03/31/22 04/01/22 04/01/22 18:59 06:59 18:59 Output Total 2300 3000 Balance -2300 -3000 Output: Urine 2300 3000 Other: Voiding Method Indwelling Catheter Indwelling Catheter - Exam Constitutional: No acute distress, conversant Eyes:Anicteric sclerae, moist conjunctiva, no lid-lag, PERRLA, ENMT: Oropharynx clear, no erythema, exudates Neck: Supple, FROM, no masses, or JVD, No carotid bruits, No thyromegaly Lungs: Clear to auscultation, Clear to percussion, Normal respiratory effort, no accessory muscle use Cardiovascular: Heart regular in rate and rhythm, No murmurs, gallops, or rubs, No peripheral edema Abdominal: Soft, Nontender, no guarding, rebound or rigidity, Normoactive bowel sounds, No hepatomegaly, No splenomegaly, No palpable mass Skin: Normal temperature, tone, texture, turgor, no induration, No subcutaneous nodules, No rash, lesions, No ulcers Extremities: No digital cyanosis, No clubbing, Pedal pulses intact and symmetrical, Radial pulses intact and symmetrical, No calf tenderness Neuro: Awake alert oriented 3. Florez catheter place - Labs CBC & Chem 7: 03/30/22 06:20 04/01/22 05:21 Labs: Abnormal Lab Results - Last 24 Hours (Table) 04/01/22 Range/Units 05:21 BUN 33.3 H (9.0-27.0) mg/dL Creatinine 3.4 H (0.6-1.5) mg/dL Est GFR (CKD-EPI)AfAm 20.0 L (60.0-200.0) Est GFR (CKD-EPI)NonAf 17.3 L (60.0-200.0) BUN/Creatinine Ratio 9.79 L (12.00-20.00) Ratio AST 50 H (14-35) U/L ALT 84 H (10-49) U/L Total Protein 5.8 L (6.2-8.2) g/dL Albumin 3.4 L (3.8-4.9) g/dL Albumin/Globulin Ratio 1.42 L (1.60-3.17) g/dL Assessment and Plan Assessment: Assessment: #1 metabolic encephalopathy cause unclear #2 rhabdomyolysis-resolved #3 acute kidney injury on COPD stage IV #4 GERD/reflux #5 hyperlipidemia #6 essential hypertension #7 history of multiple subcentimeter pulmonary nodules Plan: -Admit to medicine for close monitoring -Aspiration/fall precaution/[id number] -Patient scheduled for prolonged EEG ordered by neurology -MRI to be reviewed by neurology -Recommend clamping/removing Florez catheter, monitoring urinary output. Discussed with nephrology agreeable. -Creatinine slightly trending up compared to yesterday. Continue to monitor. -Continue Flomax -Normal saline 75 mL an hour -Pulmonary on board -DVT prophylaxis heparin 3 times a day Disposition despite discharge in the next 24 hours after removal of Florez catheter making sure the patient does not any urinary retention. EEG prolonged ordered by neurology to be completed today.
--- NOTE | 2022-04-01 12:34 | P.PN ---
Subjective Progress Note Date: 03/31/22 03/31/2022: Patient laying comfortably in the bed. Offers no complaint. No further seizures. 03/30/2022: Patient initially seen by Dr. Saul. Please refer to earlier for details. Patient admitted with altered mental status, found down on the floor in the kitchen. Last known well was 2 days prior. He was surrounded by feces and possible some urine. No tongue bite. Patient was diagnosed with possible toxic metabolic encephalopathy. Patient has acute renal failure, possible seizure secondary to uremia. I reviewed the labs, patient does have chronic renal insufficiency, which was slightly worse, probably not the cause of the seizure. EEG was ordered. Patient does not take any medication at home. No alcohol use, only very seldom when he has social interaction. Patient's brother and [id number] were present today. Patient states he has history of back surgery 5 years ago. He used to take a lot of pain medications but has not taken any for last 1 year. Objective - Vital Signs Vital signs: Vital Signs Temp 97.8 F 03/31/22 14:00 Pulse 98 03/31/22 14:00 Resp 17 03/31/22 14:00 BP 163/77 03/31/22 14:00 Pulse Ox 97 03/31/22 14:00 Intake & Output 03/30/22 03/31/22 03/31/22 18:59 06:59 18:59 Intake Total 1050 Output Total 5100 2300 Balance 1050 -5100 -2300 Intake: Intake, IV Titration 600 Amount Sodium Chloride 0.9% 1, 600 000 ml @ 75 mls/hr IV . [id number] [facility] Rx#:[id number] Oral 450 Output: Urine 5100 2300 Other: Voiding Method Indwelling Catheter Indwelling Catheter Indwelling Catheter # Bowel Movements 1 - Exam Patient's mental status, speech and language functions are normal. He knows it is March 2022 and that he is in [facility] in [place] and name of the current president. Speech and language are normal. Visual mcmillan are full. Face is symmetric. No ataxia. - Labs CBC & Chem 7: 03/30/22 06:20 04/01/22 05:21 Labs: Abnormal Lab Results - Last 24 Hours (Table) 03/31/22 03/31/22 Range/Units 05:09 05:09 Chloride 112 H (96-109) mmol/L Carbon Dioxide 18.9 L (20.0-27.5) mmol/L BUN 33.0 H (9.0-27.0) mg/dL Creatinine 3.1 H (0.6-1.5) mg/dL Est GFR (CKD-EPI)AfAm 22.2 L (60.0-200.0) Est GFR (CKD-EPI)NonAf 19.2 L (60.0-200.0) BUN/Creatinine Ratio 10.58 L (12.00-20.00) Ratio Calcium 8.6 L (8.7-10.3) mg/dL AST 76 H (14-35) U/L ALT 88 H (10-49) U/L Total Protein 5.4 L (6.2-8.2) g/dL Total Protein (PEP) 5.5 L (6.2-8.2) g/dL Albumin 3.4 L (3.8-4.9) g/dL Assessment and Plan Assessment: 1. Episode of unresponsiveness, as patient was found in the kitchen with feces all around. Rule out unwitnessed seizure. Toxic encephalopathy also in the differential due to acute on chronic renal failure. 2. Possible seizure with post ictal state 3. Rhabdomyolysis 4. Medical noncompliance 5. Reported history of bipolar disorder Plan: 1. EEG on 03/30/2022 was normal awake and drowsy. No epileptiform activity was seen. 2. MRI of brain revealed nonspecific white matter demyelination may be due to chronic small vessel ischemic change. Mild sinus disease. No acute process. I personally reviewed MRI of the brain and agree with the findings. 3. Hold off on antiepileptic medication because of normal workup as above. We will check 2.5 hour prolonged EEG to rule out any epileptiform activity. 4. Your medical treatment 5. Patient and his brother and [id number] were informed of [place] state law of no driving unless seizure free for 6 months, climbing ladders, operating dangerous machinery or unsupervised swimming. 6. Patient may be discharged after prolonged EEG has been completed. Would not wait for the results, as I can follow-up the results after discharge.
[2022-04-01 15:27] LABS: Free Lambda Lt Chain Qnt, Seru 3.28 mg/dL (0.57-2.63)
[2022-04-01 15:29] LABS: Free Kappa Lt Chain Qnt, Serum 3.54 mg/dL (0.33-1.94)
[2022-04-01 17:05] LABS: Albumin 2.93 g/dL (3.80-4.90); Gamma Globulin 0.62 g/dL (0.70-1.50)
[2022-04-01] MEDS: TAMSULOSIN 0.4 MG CAP.ER.24H PO SCH (17:05)
--- NOTE | 2022-04-01 18:46 | EEG ---
ELECTROENCEPHALOGRAM REPORT DATE OF PROCEDURE: 04/01/2022 ELECTROENCEPHALOGRAM (EEG) REPORT: TECHNIQUE: This is a report from a prolonged inpatient 2-1/2-hour 18-channel digital EEG performed using the 10/20 international system. HISTORY: Altered mental status, hyperlipidemia, hypertension. CURRENT MEDICATIONS: Tylenol, Flomax. FINDINGS: Recording start time: 04/01/2022 at 10:19 a.m. Recording end time: 04/01/2022 at 12:54 p.m. EVENTS: During this 2-1/2-hour video EEG, no clinical or electrographic seizures were recorded. Please note that interpretation was performed at 5-microvolt sensitivity. BACKGROUND: The background activity consists of 8 to 9 hertz rhythmic waveforms symmetric distributed through both posterior quadrants. ACTIVATION Hyperventilation: Not performed. Photic stimulation: Symmetric driving seen. Sleep: Stages I and II sleep noted. ABNORMALITIES: None. IMPRESSION: Normal 2-1/2-hour video EEG. No clinical or electrographic seizures were recorded. No epileptiform activity was present. MMODL / IJN: [id number] /
[2022-04-02] MEDS: HEPARIN SODIUM,PORCINE/PF 5,000 UNIT/0.5 ML SYRINGE SQ SCH ×3 (00:35→15:40)
--- NOTE | 2022-04-02 08:40 | P.PN ---
Subjective Progress Note Date: 04/01/22 04/01/2022: Patient was seen for a follow-up. Patient is laying comfortably in the bed. He complains of low back pain, which he attributes to his spondylolisthesis. No further syncopal spells or seizures. 03/31/2022: Patient laying comfortably in the bed. Offers no complaint. No further seizures. 03/30/2022: Patient initially seen by Dr. Saul. Please refer to earlier for details. Patient admitted with altered mental status, found down on the floor in the kitchen. Last known well was 2 days prior. He was surrounded by feces and possible some urine. No tongue bite. Patient was diagnosed with possible toxic metabolic encephalopathy. Patient has acute renal failure, possible seizure se condary to uremia. I reviewed the labs, patient does have chronic renal insufficiency, which was slightly worse, probably not the cause of the seizure. EEG was ordered. Patient does not take any medication at home. No alcohol use, only very seldom when he has social interaction. Patient's brother and [id number] were present today. Patient states he has history of back surgery 5 years ago. He used to take a lot of pain medications but has not taken any for last 1 year. Objective - Vital Signs Vital signs: Vital Signs Temp 98.1 F 04/01/22 08:00 Pulse 94 04/01/22 08:00 Resp 16 04/01/22 08:00 BP 146/94 04/01/22 08:00 Pulse Ox 97 04/01/22 08:00 Intake & Output 03/31/22 04/01/22 04/01/22 18:59 06:59 18:59 Output Total 2300 3000 Balance -2300 -3000 Output: Urine 2300 3000 Other: Voiding Method Indwelling Catheter Indwelling Catheter - Exam Patient's mental status, speech and language functions are normal. He knows it is March 2022 and that he is in [facility] in [place] and name of the current president. Speech and language are normal. Visual mcmillan are full. Face is symmetric. Tongue protrudes the midline. No ataxia. Sensations equal. Muscle strength normal. - Labs CBC & Chem 7: 03/30/22 06:20 04/01/22 05:21 Labs: Abnormal Lab Results - Last 24 Hours (Table) 03/31/22 04/01/22 Range/Units 05:09 05:21 BUN 33.3 H (9.0-27.0) mg/dL Creatinine 3.4 H (0.6-1.5) mg/dL Est GFR (CKD-EPI)AfAm 20.0 L (60.0-200.0) Est GFR (CKD-EPI)NonAf 17.3 L (60.0-200.0) BUN/Creatinine Ratio 9.79 L (12.00-20.00) Ratio AST 50 H (14-35) U/L ALT 84 H (10-49) U/L Total Protein 5.8 L (6.2-8.2) g/dL Albumin 3.4 L (3.8-4.9) g/dL Albumin/Globulin Ratio 1.42 L (1.60-3.17) g/dL Free [place] LC, Quant 3.54 H (0.33-1.94) mg/dL Free Lambda LC, Quant 3.28 H (0.57-2.63) mg/dL Assessment and Plan Assessment: 1. Episode of unresponsiveness, as patient was found in the kitchen with feces all around. Rule out unwitnessed seizure. Toxic encephalopathy also in the differential due to acute on chronic renal failure. 2. Possible seizure with post ictal state 3. Rhabdomyolysis 4. Medical noncompliance 5. Reported history of bipolar disorder 6. Chronic back pain due to spondylolisthesis. 7. Chronic renal insufficiency, stage IV. Plan: 1. EEG on 03/30/2022 was normal awake and drowsy. No epileptiform activity was seen. 2. MRI of brain revealed nonspecific white matter demyelination may be due to chronic small vessel ischemic change. Mild sinus disease. No acute process. I personally reviewed MRI of the brain and agree with the findings. 3. Prolonged 2.5 hour EEG reported as normal. No epileptiform activity was seen. No electrographic seizures recorded. No indication for antiepileptic medication. 4. Your medical treatment 5. Patient and his brother and [id number] were informed of [place] state law of no driving unless seizure free for 6 months, climbing ladders, operating dangerous machinery or unsupervised swimming. 6. Neurologically clear for discharge. Neurology will sign off. Please reconsult neurology if any other concerns.
[2022-04-02] MEDS: SODIUM BICARBONATE TAB 650 MG TAB PO SCH ×3 (09:06→21:49)
--- NOTE | 2022-04-02 10:00 | P.PN ---
Subjective Patient is seen in follow-up for acute kidney injury on chronic kidney disease. Creatinine 3.4 yesterday. Florez catheter removed 04/01/2022. Has been voiding on his own. Hypercalcemia resolved. Oral intake fair. Denies chest pain or shortness of breath. Blood pressure high. No active complaints. Vital signs are stable. General: Awake. No acute distress. HEENT: Head exam is unremarkable. LUNGS: Breath sounds decreased. HEART: Rate and Rhythm are regular. ABDOMEN: Soft, no distention. EXTREMITITES: No edema. Objective - Vital Signs Vital signs: Vital Signs Temp 97.4 F L 04/02/22 08:00 Pulse 89 04/02/22 08:00 Resp 16 04/02/22 08:00 BP 182/80 04/02/22 08:00 Pulse Ox 95 04/02/22 08:00 Intake & Output 04/01/22 04/02/22 04/02/22 18:59 06:59 18:59 Other: Voiding Method Urinal Toilet Urinal - Labs CBC & Chem 7: 03/30/22 06:20 04/01/22 05:21 Labs: Abnormal Lab Results - Last 24 Hours (Table) 03/31/22 Range/Units 05:09 Albumin (PEP) 2.93 L (3.80-4.90) g/dL Gamma Globulins 0.62 L (0.70-1.50) g/dL Free [place] LC, Quant 3.54 H (0.33-1.94) mg/dL Free Lambda LC, Quant 3.28 H (0.57-2.63) mg/dL Assessment and Plan Plan: Assessment: 1. Acute kidney injury mostly prerenal improved with IV hydration. Creatinine was 4.28 on admission - 3.4 yesterday. of urinary retention. No hydronephrosis noted on kidney ultrasound. Left kidney is atrophic. Bilateral small kidney stones noted. 2. Urinary retention. Florez catheter removed 04/01/2022. On Flomax. 3. Hypercalcemia secondary to volume contraction. Improved with IV hydration. Patient has history of hypercalcemia and workup in the past including a parathyroid nuclear scan was negative. Patient's Ta level was elevated for which he was seen by pulmonology and responded to a trial of prednisone at the time. Hypercalcemia resolved. CAT scan in 2019 did show numerous pulmonary nodules - CT done this admission shows old granulomatous disease. 4. Chronic kidney disease stage IV secondary to nephrosclerosis, hypercalcemia- induced ATN. ?medullary sponge kidney with history of kidney stones. Patient's creatinine in November 2021 was 3.3. 5. Mild rhabdomyolysis secondary to fall. CK level improved. 6. History of bipolar disorder. 7. History of nephrolithiasis. 8. Metabolic acidosis secondary to acute kidney injury and IV fluids maintained on oral bicarb. Plan: Maintain IV fluids. Follow-up PTHrP (normal in 2018). No monoclonality noted on serum immunofixation. 1,25D3 level 23. Workup for nephrolithiasis outpatient. Patient strongly advised to follow up. MRI of the brain showed nonspecific white matter demyelination possibly from chronic small vessel ischemia. Education for renal replacement therapy and kidney transplant patient will be provided outpatient. Follow-up morning labs.
[2022-04-02] MEDS: SODIUM CHLORIDE 0.9% 1,000 ML IV SCH ×2 (10:33→16:53)
[2022-04-02 11:57] LABS: ALT 81 U/L (4-49); AST 63 U/L (17-59); African American GFR (CKD) 20 (>60 ml/min/1.73 sqM); Albumin 3.7 g/dL (3.5-5.0); Albumin/Globulin Ratio 1.2; Alkaline Phosphatase 79 U/L (38-126); Anion Gap 7 mmol/L; Blood Urea Nitrogen 40 mg/dL (9-20); Calcium 9.8 mg/dL (8.4-10.2); Carbon Dioxide 23 mmol/L (22-30); Chloride 105 mmol/L (98-107); Globulin 3.1 g/dL; Glucose 92 mg/dL (74-99); Magnesium 2.1 mg/dL (1.6-2.3); Non-African American GFR(CKD) 18 (>60 ml/min/1.73 sqM); Potassium 4.8 mmol/L (3.5-5.1); Sodium 135 mmol/L (137-145); Total Bilirubin 0.5 mg/dL (0.2-1.3); Total Protein 6.8 g/dL (6.3-8.2)
--- NOTE | 2022-04-02 16:27 | P.PN ---
Subjective Progress Note Date: 04/02/22 History of Present Illness H&P Date: 03/28/22 Chief Complaint: change in mental status 71-year-old male presenting to the emergency department with change in his mental status. Patient lives by himself. The last time the family talked to th e patient was 2 days ago. According to them he seemed normal at that time. He was found this morning on the floor mixed with his stools. He was moaning at that time. Otherwise no other details.. Patient is currently alert however not following commands and nonverbal. He is restless and mildly combative at times especially when trying to clean him up.. I reviewed the bottles of the medications he is supposed to be on and all of them or at least 2 years old when they were filled. Obviously he is not taking those medications as prescribed. The emergency department chest x-ray, EKG, head CT, cervical spine CT are all negative for any acute pathology. Labs showed worsening of his chronic kidney disease stage IV with creatinine up to 4.28. His baseline is around 3. Urine toxicology screen is negative. WBC count in the urine 13, blood analysis in the UA was large. Negative alcohol in the blood. Total CK 2385, troponin 0.057, AST 139, AST 39, potassium 5.5, calcium 10.5. Patient was admitted for further evaluation and management. Interval history: Patient was seen and examined at the bedside. He is alert oriented 3. He denies any chest pain or shortness of breath. He is feeling dizzy with ambulation Physical examination General: non toxic, no distress, appears at stated age Derm: warm, dry Head: atraumatic, normocephalic, symmetric Eyes: EOMI, no lid lag, anicteric sclera Mouth: no lip lesion, mucus membranes moist Cardiovascular: S1S2 reg, no murmur, positive posterior tibial pulse bilateral, Lungs: CTA bilateral, no rhonchi, no rales , no accessory muscle use Abdominal: soft, nontender to palpation, no guarding, no appreciable organomegaly Ext: no gross muscle atrophy, no edema, no contractures Neuro: CN II-XI grossly intact, no focal neuro deficits Psych: Alert, oriented, appropriate affect Assessment and plan: #Unresponsiveness/possible syncope -Unclear etiology -EEG and MRI of the pain unremarkable -Neurology recommended cardiac workup to rule out arrhythmia -Check 2-D echo and consult cardiology -Check orthostatic -Consult speech for cognitive evaluation #Dizziness: -Check orthostatics patient a being on Flomax #Acute encephalopathy likely metabolic sec to acute kidney failure and hypercalcemia -Improved -MRI of the brain without any acute changes #Acute kidney injury most likely secondary to dehydration #Hyperkalemia -Improved with IV fluids -No hydronephrosis noted on kidney ultrasound. If kidney is atrophic. Bilateral small kidney stones noted. -No monoclonal abnormality noted and serum immunofixation #Metabolic acidosis secondary to acute kidney injury -maintained on oral bicarb. #Chronic kidney disease stage IV secondary to nephrosclerosis, hypercalcemia- induced ATN. #Mild acute traumatic rhabdomyolysis -CPK level improved with IV fluid. #Hypertension -Start small dose Coreg 3.125 twice daily. #Urinary retention -Catheter removed -Resume Flomax #Bipolar disorder -Not any medication at home -Patient was evaluated by psychiatry #GERD Objective - Vital Signs Vital signs: Vital Signs Temp 97.4 F L 04/02/22 08:00 Pulse 89 04/02/22 08:00 Resp 16 04/02/22 08:00 BP 182/80 04/02/22 08:00 Pulse Ox 95 04/02/22 08:00 Intake & Output 04/01/22 04/02/22 04/02/22 18:59 06:59 18:59 Other: Voiding Method Urinal Toilet Urinal - Labs CBC & Chem 7: 03/30/22 06:20 04/02/22 11:01 Labs: Abnormal Lab Results - Last 24 Hours (Table) 03/31/22 04/02/22 Range/Units 05:09 11:01 Sodium 135 L (137-145) mmol/L BUN 40 H (9-20) mg/dL Creatinine 3.35 H (0.66-1.25) mg/dL AST 63 H (17-59) U/L ALT 81 H (4-49) U/L Albumin (PEP) 2.93 L (3.80-4.90) g/dL Gamma Globulins 0.62 L (0.70-1.50) g/dL
[2022-04-02] MEDS: TAMSULOSIN 0.4 MG CAP.ER.24H PO SCH (17:06)
[2022-04-02] MEDS: carvediloL 3.125 MG TAB PO SCH (17:06)
[2022-04-02 22:58] LABS: Hepatitis A Antibody IgM Nonreactive (Nonreactive); Hepatitis B Core IgM Nonreactive (Nonreactive); Hepatitis B Surface Antigen Nonreactive (Nonreactive); Hepatitis C IgG Antibody Nonreactive (Nonreactive)
[2022-04-03] MEDS: HEPARIN SODIUM,PORCINE/PF 5,000 UNIT/0.5 ML SYRINGE SQ SCH ×2 (00:50→07:30)
[2022-04-03] MEDS: SODIUM CHLORIDE 0.9% 1,000 ML IV SCH (06:02)
[2022-04-03] MEDS: carvediloL 3.125 MG TAB PO SCH (07:30)
[2022-04-03] MEDS: SODIUM BICARBONATE TAB 650 MG TAB PO SCH (07:30)
[2022-04-03 08:34] VITALS: BP 129/87; PULSE 93; RESP 18; TEMP 98.3
--- NOTE | 2022-04-03 09:18 | CA ---
Transthoracic Echo Report Name: Martin Salmeron Age: 71 Gender: M : 1950 Exam Date: 04/02/2022 14:43 Exam Location: [facility] Ht (in): 72 Wt (lb): 200 Ordering Physician: Maggie Orantes MD Attending/Referring Phys: [id number] Power Marketer Marilou Tate RDCS Procedure CPT: Indications: Syncope Cardiac Hx: Technical Quality: Contrast 1: Total Dose (mL): Contrast 2: Total Dose (mL): MEASUREMENTS (Male / Female) Normal Values 2D ECHO LV Diastolic Diameter PLAX 3.4 cm 4.2 - 5.9 / 3.9 - 5.3 cm LV Systolic Diameter PLAX 2.6 cm IVS Diastolic Thickness 1.5 cm 0.6 - 1.0 / 0.6 - 0.9 cm LVPW Diastolic Thickness 1.6 cm 0.6 - 1.0 / 0.6 - 0.9 cm LV Relative Wall Thickness 0.9 RV Internal Dim ED PLAX 2.9 cm LA Systolic Diameter LX 2.7 cm 3.0 - 4.0 / 2.7 - 3.8 cm M-MODE Aortic Root Diameter MM 3.1 cm LA Systolic Diameter MM 3.7 cm LA Ao Ratio MM 1.2 MV E Point Septal Separation 0.6 cm AV Cusp Separation MM 1.5 cm DOPPLER MV Area PHT 3.4 cm??? Mitral E Point Velocity 25.1 cm/s Mitral A Point Velocity 112.7 cm/s Mitral E to A Ratio 0.2 MV Deceleration Time 222.9 ms MV E' Velocity 7.6 cm/s Mitral E to MV E' Ratio 3.3 FINDINGS Left Ventricle Left ventricular ejection fraction is estimated at50-55 %. Left ventricular cavity size normal. Moderately increased left ventricular wall thickness. Right Ventricle Normal right ventricular size and function. Right Atrium Normal right atrial size. Left Atrium Left atrial size at the upper limits of normal. Mitral Valve Mild mitral regurgitation. Aortic Valve Aortic valve sclerosis. Tricuspid Valve Mild tricuspid regurgitation. Pulmonic Valve Pulmonic valve not well visualized. Pericardium Echo free space anterior to the right ventricle likely represents a fat pad. Aorta Normal size aortic root and proximal ascending aorta. CONCLUSIONS LVH with preserved LV systolic function ejection fraction greater than 55% No significant valvular abnormalities No pericardial effusion Previewed by: Dr. Ryan Morgan MD (Electronically Signed) Final Date: 03 Apr 2022 09:17
[2022-04-03 09:28] LABS: Basophils # (A) 0.07 X 10*3/uL (0.00-0.10); Basophils % (A) 1.2 %; Eosinophils # (A) 0.39 X 10*3/uL (0.04-0.35); Eosinophils % (A) 6.7 %; HCT 39.6 % (39.6-50.0); HGB 12.4 g/dL (13.0-17.0); Immature Grans, Automated 2.1 %; Lymphocytes # (A) 1.62 X 10*3/uL (0.90-5.00); Lymphocytes % (A) 27.8 %; MCH 28.2 pg (27.0-32.0); MCHC 31.3 g/dL (32.0-37.0); Monocytes # (A) 0.99 X 10*3/uL (0.20-1.00); NRBC Per 100 WBC 0 /100 WBCS (0.0-0.0); Neutrophils # (A) 2.63 X 10*3/uL (1.80-7.70); Neutrophils % (A) 45.2 %; Platelet Count 217 X 10*3/uL (140-440); RDW 13.3 % (11.5-14.5); WBC 5.82 X 10*3/uL (4.50-10.00)
[2022-04-03 09:36] LABS: African American GFR (CKD) 16.9 (60.0-200.0); Albumin 3.6 g/dL (3.8-4.9); Albumin/Globulin Ratio 1.51 (1.60-3.17); Anion Gap 10.6 mmol/L (10.00-18.00); BUN/Creat Ratio 10.59 Ratio (12.00-20.00); Blood Urea Nitrogen 41.5 mg/dL (9.0-27.0); Calcium 9.5 mg/dL (8.7-10.3); Carbon Dioxide 21.5 mmol/L (20.0-27.5); Globulin 2.4 g/dL (1.6-3.3); Magnesium 2.2 mg/dL (1.5-2.4); Non-African American GFR(CKD) 14.6 (60.0-200.0); Potassium 4.7 mmol/L (3.5-5.5); Total Bilirubin 0.3 mg/dL (0.30-1.20)
[2022-04-03 09:37] VITALS: BMI 25.7
--- NOTE | 2022-04-03 10:10 | P.CRDCN ---
History of Present Illness Consult date: 04/03/22 History of present illness: HISTORY OF PRESENT ILLNESS: This is a 71-year-old male who does not follow with a hospital superintendent. The patient was admitted to the hospital secondary to being found unresponsive at home in his own feces. We have been asked to see the patient in consultation for syncope. Patient examined at the bedside. Patient denies having any chest pain or pressure. He denies shortness of breath. He denies any dizziness or light headedness. Orthostatic blood pressures obtained and were negative. Vital signs are currently stable. * EKG reveals sinus mechanism with no signs of acute ischemia. The patient is not on telemetry monitoring. * Chest xray negative for acute process * Laboratory data: WBC 5.82. Hemoglobin 12.4. Platelet count 217. Sodium 135. Potassium 4.7. BUN 41. Creatinine 3.9. * Current home cardiac medications include none * Echocardiogram obtained reveals LVH with preserved LV systolic function greater than 55%. No significant valvular abnormalities. No pericardial effusion. REVIEW OF SYSTEMS: At the time of my exam: CONSTITUTIONAL: Denies fever or chills. HEENT: Denies blurred vision, vision changes, or eye pain. Denies hemoptysis CARDIOVASCULAR: Denies chest pain. Denies orthopnea. Denies PND. Denies palpitations RESPIRATORY: Denies shortness of breath. GASTROINTESTINAL: Denies abdominal pain. Denies nausea or vomiting. HEMATOLOGIC: Denies bleeding disorders. GENITOURINARY: Denies any blood in urine. SKIN: Denies pruitis. Denies rash. PHYSICAL EXAM: VITAL SIGNS: Reviewed. GENERAL: Well-developed in no acute distress. HEENT: Head is normocephalic. Pupils are equal, round. Sclerae anicteric. Mucous membranes of the mouth are moist. Neck supple. No JVD or thyromegaly LUNGS: Respirations even and unlabored. Lungs essentially clear to auscultation bilaterally. HEART: Regular rate and rhythm. S1 and S2 heard. ABDOMEN: Soft. Nondistended. Nontender. EXTREMITIES: Normal range of motion. No clubbing or cyanosis. Peripheral pulses intact. No lower extremity edema NEUROLOGIC: Awake and alert. Oriented x 3. ASSESSMENT: Episode of unresponsiveness, etiology unclear Acute renal failure Acute encephalopathy PLAN: 2D echo obtained and reviewed Orthostatics negative Patient very eager to be discharged home He may be discharged home today and follow up outpatient with Dr. Morgan Nurse practitioner note has been reviewed by physician. Signing provider agrees with the documented findings, assessment, and plan of care. Past Medical History Past Medical History: GERD/Reflux, Hyperlipidemia, Hypertension, Musculoskeletal Disorder, Renal Disease, Sleep Apnea/CPAP/BIPAP Additional Past Medical History / Comment(s): uses CPAP History of Any Multi-Drug Resistant Organisms: None Reported Past Surgical History: Tonsillectomy Additional Past Surgical History / Comment(s): colonoscopy Past Anesthesia/Blood Transfusion Reactions: No Reported Reaction Past Psychological History: Bipolar Smoking Status: Unknown if ever smoked Past Alcohol Use History: Occasional Past Drug Use History: None Reported - Past Family History Mother Family Medical History: No Reported History Medications and Allergies Home Medications Medication Instructions Recorded Confirmed Type Tamsulosin [Flomax] 0.4 mg PO PC-SUPPER #30 04/02/22 Rx Allergies Allergy/AdvReac Type Severity Reaction Status Date / Time No Known Allergies Allergy Verified 03/30/22 10:02 Physical Exam Vitals: Vital Signs Temp Pulse Resp BP BP BP BP 04/03/22 08:00 98.3 F 93 18 129/87 04/03/22 07:31 86 149/73 04/03/22 00:52 98.9 F 74 16 110/55 121/87 119/68 04/02/22 21:50 98.6 F 91 16 157/93 04/02/22 17:01 107 H 136/86 04/02/22 16:59 99 149/92 04/02/22 16:58 86 158/99 04/02/22 14:00 98.4 F 97 16 113/69 Pulse Ox 04/03/22 08:00 98 04/03/22 07:31 04/03/22 00:52 98 04/02/22 21:50 96 04/02/22 17:01 04/02/22 16:59 99 04/02/22 16:58 98 04/02/22 14:00 96 Intake and Output 04/02/22 04/03/22 04/03/22 22:59 06:59 14:59 Other: Voiding Method Urinal # Voids 2 2 # Bowel Movements 0 Weight 90.718 kg Results 04/03/22 06:22 04/03/22 06:22 Cardiac Enzymes 04/02/22 04/03/22 Range/Units 11:12 04: AST 63 H 58 H (17-59) U/L CBC 04/03/22 Range/Units 06:22 WBC 5.82 (4.50-10.00) X 10*3/uL RBC 4.40 (4.40-5.60) X 10*6/uL Hgb 12.4 L (13.0-17.0) g/dL Hct 39.6 (39.6-50.0) % Plt Count 217 (140-440) X 10*3/uL Comprehensive Metabolic Panel 04/02/22 04/03/22 Range/Units 11: 06:22 Sodium 135 L 135 (137-145) mmol/L Potassium 4.8 4.7 (3.5-5.1) mmol/L Chloride 105 103 (98-107) mmol/L Carbon Dioxide 23 21.5 (22-30) mmol/L BUN 40 H 41.5 H (9-20) mg/dL Creatinine 3.35 H 3.9 H (0.66-1.25) mg/dL Glucose 92 94 (74-99) mg/dL Calcium 9.8 9.5 (8.4-10.2) mg/dL AST 63 H 58 H (17-59) U/L ALT 81 H 88 H (4-49) U/L Alkaline Phosphatase 79 76 (38-126) U/L Total Protein 6.8 6.0 L (6.3-8.2) g/dL Albumin 3.7 3.6 L (3.5-5.0) g/dL Current Medications Generic Name Dose Route Start Last Admin Trade Name Dale PRN Reason Stop Dose Admin Acetaminophen 650 mg 03/29/22 20:52 04/01/22 07:43 Acetaminophen Tab 325 Mg Tab PO 650 mg Q4HR PRN Administration Fever and/ or Pain Carvedilol 3.125 mg 04/02/22 17:30 04/03/22 07:30 Carvedilol 3.125 Mg Tab PO 3.125 mg BID-W/MEALS MARY BETH Administration Heparin Sodium (Porcine) 5,000 unit 03/30/22 16:00 04/03/22 07:30 Heparin Sodium,Porcine/Pf 5,000 Unit/0.5 Ml Syringe SQ 5,000 unit Q8HR MARY BETH Administration Sodium Chloride 1,000 mls @ 75 mls/hr 03/28/22 14:45 04/03/22 06:02 Saline 0.9% IV 75 mls/hr .[id number] MARY BETH Administration Naloxone HCl 0.2 mg 03/28/22 14:41 Naloxone 0.4 Mg/Ml 1 Ml Vial IV Q2M PRN Opioid Reversal Sodium Bicarbonate 650 mg 03/30/22 16:00 04/03/22 07:30 Sodium Bicarbonate Tab 650 Mg Tab PO 650 mg TID MARY BETH Administration Tamsulosin HCl 0.4 mg 03/29/22 18:30 04/02/22 17:06 Tamsulosin 0.4 Mg Cap.Er.24h PO 0.4 mg PC-SUPPER MARY BETH Administration Intake and Output 04/02/22 04/03/22 04/03/22 22:59 06:59 14:59 Other: Voiding Method Urinal # Voids 2 2 # Bowel Movements 0 Weight 90.718 kg Patient Weight 04/04/22 06:59 Weight 90.718 kg 04/03/22 06:22 04/03/22 06:22
--- NOTE | 2022-04-03 10:12 | P.PN ---
Subjective Progress Note Date: 04/02/22 04/02/2022: Patient was seen for a follow-up. Patient is laying comfortably in the bed. Offers no new complaints. No seizures or syncopal spells. Patient does have chronic back pain, and left foot weakness. He has spondylolisthesis. Patient tells me that he has been seen by neurologist and neurosurgeon in [place] and even at [facility]. Patient states that he wanted to undergo fusion at L4 5, but they placed screws in the vertebrae. The back surgery did not help with his gait. When he walks, he drags left leg, going on for last 1 year. 04/01/2022: Patient was seen for a follow-up. Patient is laying comfortably in the bed. He complains of low back pain, which he attributes to his spondylolisthesis. No further syncopal spells or seizures. 03/31/2022: Patient laying comfortably in the bed. Offers no complaint. No further seizures. 03/30/2022: Patient initially seen by Dr. Saul. Please refer to earlier for details. Patient admitted with altered mental status, found down on the floor in the kitchen. Last known well was 2 days prior. He was surrounded by feces and possible some urine. No tongue bite. Patient was diagnosed with possible toxic metabolic encephalopathy. Patient has acute renal failure, possible seizure secondary to uremia. I reviewed the labs, patient does have chronic renal insufficiency, which was slightly worse, probably not the cause of the seizure. EEG was ordered. Patient does not take any medication at home. No alcohol use, only very seldom when he has social interaction. Patient's brother and [id number] were present today. Patient states he has history of back surgery 5 years ago. He used to take a lot of pain medications but has not taken any for last 1 year. Objective - Vital Signs Vital signs: Vital Signs Temp 98.4 F 04/02/22 14:00 Pulse 107 H 04/02/22 17:01 Resp 16 04/02/22 14:00 BP 136/86 04/02/22 17:01 Pulse Ox 99 04/02/22 16:59 Intake & Output 04/01/22 04/02/22 04/02/22 18:59 06:59 18:59 Other: Voiding Method Urinal Toilet Urinal - Exam Patient's mental status, speech and language functions are normal. He knows it is March 2022 and that he is in [facility] in [place] and name of the current president. Speech and language are normal. Visual mcmillan are full. Face is symmetric. Tongue protrudes the midline. No ataxia. Sensations equal. Muscle strength normal in the upper limbs distally and proximally. In the lower limbs the strength is normal in the hip flexion, ankle dorsiflexion is 5 on the right, 3-on the left. Onto flexion is also slightly weaker on the left side as compared to right, which is normal side. - Labs CBC & Chem 7: 04/03/22 06:22 04/03/22 06:22 Labs: Abnormal Lab Results - Last 24 Hours (Table) 04/02/22 Range/Units 11:01 Sodium 135 L (137-145) mmol/L BUN 40 H (9-20) mg/dL Creatinine 3.35 H (0.66-1.25) mg/dL AST 63 H (17-59) U/L ALT 81 H (4-49) U/L Assessment and Plan Assessment: 1. Episode of unresponsiveness, as patient was found in the kitchen with feces all around. Rule out unwitnessed seizure. Toxic encephalopathy also in the differential due to acute on chronic renal failure. 2. Possible seizure with post ictal state 3. Rhabdomyolysis 4. Medical noncompliance 5. Reported history of bipolar disorder 6. Chronic back pain due to spondylolisthesis. Patient has chronic left foot drop. 7. Chronic renal insufficiency, stage IV. Plan: 1. Routine EEG on 03/30/2022 was normal awake and drowsy. No epileptiform activity was seen. 2. MRI of brain revealed nonspecific white matter demyelination may be due to chronic small vessel ischemic change. Mild sinus disease. No acute process. I personally reviewed MRI of the brain and agree with the findings. 3. Prolonged 2.5 hour EEG reported as normal. No epileptiform activity was seen. No electrographic seizures recorded. No indication for antiepileptic medication. 4. All neurological workup has been negative. Consider cardiology evaluation to rule out arrhythmia. Discussed with primary physician. 5. Patient and his brother and [id number] were informed of [place] state law of no driving unless seizure free for 6 months, climbing ladders, operating dangerous machinery or unsupervised swimming. 6. Clear for discharge from neurology standpoint.
--- NOTE | 2022-04-03 12:27 | P.PN ---
Subjective Patient is seen in follow-up for acute kidney injury on chronic kidney disease. Renal function worse today. Creatinine 3.9. Florez catheter removed 04/01/2022. Has been voiding on his own. Hypercalcemia resolved. Oral intake fair. Denies chest pain or shortness of breath. Blood pressure better controlled. No active complaints. Vital signs are stable. General: Awake. No acute distress. HEENT: Head exam is unremarkable. LUNGS: Breath sounds decreased. HEART: Rate and Rhythm are regular. ABDOMEN: Soft, no distention. EXTREMITITES: No edema. Objective - Vital Signs Vital signs: Vital Signs Temp 98.3 F 04/03/22 08:00 Pulse 93 04/03/22 08:00 Resp 18 04/03/22 08:00 BP 129/87 04/03/22 08:00 Pulse Ox 98 04/03/22 08:00 Intake & Output 04/02/22 04/03/22 04/03/22 18:59 06:59 18:59 Weight 90.718 kg Other: Voiding Method Toilet Urinal Urinal # Voids 2 2 # Bowel Movements 0 - Labs CBC & Chem 7: 04/03/22 06:22 04/03/22 06:22 Labs: Abnormal Lab Results - Last 24 Hours (Table) 04/03/22 04/03/22 Range/Units 06: 06:22 Hgb 12.4 L (13.0-17.0) g/dL MCHC 31.3 L (32.0-37.0) g/dL Immature Gran # 0.12 H (0.00-0.04) X 10*3/uL Eosinophils # 0.39 H (0.04-0.35) X 10*3/uL BUN 41.5 H (9.0-27.0) mg/dL Creatinine 3.9 H (0.6-1.5) mg/dL Est GFR (CKD-EPI)AfAm 16.9 L (60.0-200.0) Est GFR (CKD-EPI)NonAf 14.6 L (60.0-200.0) BUN/Creatinine Ratio 10.59 L (12.00-20.00) Ratio AST 58 H (14-35) U/L ALT 88 H (10-49) U/L Total Protein 6.0 L (6.2-8.2) g/dL Albumin 3.6 L (3.8-4.9) g/dL Albumin/Globulin Ratio 1.51 L (1.60-3.17) g/dL Assessment and Plan Plan: Assessment: 1. Acute kidney injury mostly prerenal improved with IV hydration. Creatinine was 4.28 on admission - 3.9 today. No hydronephrosis noted on kidney ultrasound. Left kidney is atrophic. Bilateral small kidney stones noted. 2. Urinary retention. Florez catheter removed 04/01/2022. On Flomax. 3. Hypercalcemia secondary to volume contraction. Improved with IV hydration. Patient has history of hypercalcemia and workup in the past including a parathyroid nuclear scan was negative. Patient's Ta level was elevated for which he has seen pulmonology in the past and responded to a trial of prednisone at the time. Hypercalcemia resolved. CAT scan in 2019 did show numerous pulmonary nodules - CT done this admission shows old granulomatous disease. 4. Chronic kidney disease stage IV secondary to nephrosclerosis, hypercalcemia-induced ATN. ?medullary sponge kidney with history of kidney stones. Patient's creatinine in November 2021 was 3.3. 5. Mild rhabdomyolysis secondary to fall. CK level improved. 6. History of bipolar disorder. 7. History of nephrolithiasis. 8. Metabolic acidosis secondary to acute kidney injury and IV fluids maintained on oral bicarb. Plan: Maintain IV fluids. Follow-up PTHrP (normal in 2019). No monoclonality noted on serum immunofixation. 1,25D3 level 23. Workup for nephrolithiasis outpatient. Patient strongly advised to follow up. MRI of the brain showed nonspecific white matter demyelination possibly from chronic small vessel ischemia. Education for renal replacement therapy and kidney transplant patient will be provided outpatient. Possibly being discharged today. Follow up outpatient in 1 week.
--- NOTE | 2022-04-03 12:30 | P.DS ---
Providers Date of admission: 03/28/22 14:41 Expected date of discharge: 04/03/22 Attending physician: Lizzie Dill, DO Consults: 03/28/22 14:42 Consult Physician Urgent Consulting Provider: Susan Saul Consult Reason/Comments: ams Do you want consulting provider notified?: Yes 03/28/22 16:19 Consult Physician Routine Consulting Provider: Estefania Ruff Consult Reason/Comments: renal failure Do you want consulting provider notified?: Yes 03/29/22 08:18 Consult Physician Routine Consulting Provider: Fan Barclay Consult Reason/Comments: ms change Do you want consulting provider notified?: Yes 03/29/22 12:44 Consult Physician Routine Consulting Provider: Darnell Maier Consult Reason/Comments: pulm nodules Do you want consulting provider notified?: Yes Primary care physician: Stated None Hospital Course: 71-year-old male presenting to the emergency department with change in his mental status. Patient lives by himself. The last time the family talked to the patient was 2 days ago. According to them he seemed normal at that time. He was found this morning on the floor mixed with his stools. He was moaning at that time. Otherwise no other details.. Patient is currently alert however not following commands and nonverbal. He is restless and mildly combative at times especially when trying to clean him up.. I reviewed the bottles of the med ications he is supposed to be on and all of them or at least 2 years old when they were filled. Obviously he is not taking those medications as prescribed. The emergency department chest x-ray, EKG, head CT, cervical spine CT are all negative for any acute pathology. Labs showed worsening of his chronic kidney disease stage IV with creatinine up to 4.28. His baseline is around 3. Urine toxicology screen is negative. WBC count in the urine 13, blood analysis in the UA was large. Negative alcohol in the blood. Total CK 2385, troponin 0.057, AST 139, AST 39, potassium 5.5, calcium 10.5. Patient was admitted for further evaluation and management. Physical examination General: non toxic, no distress, appears at stated age Derm: warm, dry Head: atraumatic, normocephalic, symmetric Eyes: EOMI, no lid lag, anicteric sclera Mouth: no lip lesion, mucus membranes moist Cardiovascular: S1S2 reg, no murmur, positive posterior tibial pulse bilateral, Lungs: CTA bilateral, no rhonchi, no rales , no accessory muscle use Abdominal: soft, nontender to palpation, no guarding, no appreciable organomegaly Ext: no gross muscle atrophy, no edema, no contractures Neuro: CN II-XI grossly intact, no focal neuro deficits Psych: Alert, oriented, appropriate affect Hospital course and detailed problem list: #Unresponsiveness/possible syncope -Unclear etiology -EEG and MRI of the pain unremarkable -Neurology recommended cardiac workup to rule out arrhythmia -2-D echo showed EF 55% no significant valvular abnormalities. No pericardial effusion. -Negative orthostatics -Chain Offbearer cleared the patient for discharge -Consult speech for cognitive evaluation #Dizziness: -Negative orthostatics #Acute encephalopathy likely metabolic sec to acute kidney failure and hypercalcemia -Improved -MRI of the brain without any acute changes #Acute kidney injury most likely secondary to dehydration #Hyperkalemia -Improved with IV fluids -No hydronephrosis noted on kidney ultrasound. If kidney is atrophic. Bilateral small kidney stones noted. -No monoclonal abnormality noted and serum immunofixation #Metabolic acidosis secondary to acute kidney injury -maintained on oral bicarb. Nephrology recommended to continue bicarb on discharge. #Chronic kidney disease stage IV secondary to nephrosclerosis, hypercalcemia- induced ATN. #Mild acute traumatic rhabdomyolysis -CPK level improved with IV fluids. #Hypertension -Resume Coreg 3.125 twice daily. #Urinary retention -Catheter removed -Resume Flomax #Bipolar disorder -Not any medication at home -Patient was evaluated by psychiatry and outpatient follow-up recommended Patient Condition at Discharge: Stable Plan - Discharge Summary New Discharge Prescriptions: New Tamsulosin [Flomax] 0.4 mg PO PC-SUPPER #30 Discharge Medication List Tamsulosin [Flomax] 0.4 mg PO PC-SUPPER #30 04/02/22 [Rx] Follow up Appointment(s)/Referral(s): Lucien Pérez MD [REFERRING] - 04/06/22 2:30 pm [facility], [NON-STAFF] - As Needed ([facility] can follow after you follow up with a primary care physician.) Ren North DO [STAFF PHYSICIAN] - 05/06/22 11:20 am Darnell Maier MD [STAFF PHYSICIAN] - 04/14/22 2:15 pm Activity/Diet/Wound Care/Special Instructions: no driving for 6 months Discharge Disposition: HOME WITH HOME HEALTH SERVICES
== END 2022-04-03 15:50 | disposition home health service (06) | DRG 682 ==
LOC: EC 13:11 → 4SSUR 14:41
PROVIDERS: ADMIT Internal Medicine; ATTEND Internal Medicine
DX: N17.0 Acute kidney failure with tubular necrosis (principal); G93.41 Metabolic encephalopathy; E87.2 Acidosis; Q61.5 Medullary cystic kidney; R55 Syncope and collapse; N18.4 Chronic kidney disease, stage 4 (severe); E86.0 Dehydration; T79.6XXA Traumatic ischemia of muscle, initial encounter; E78.5 Hyperlipidemia, unspecified; R33.9 Retention of urine, unspecified; E83.52 Hypercalcemia; E87.5 Hyperkalemia; F01.50 Vascular dementia, unspecified severity, without behavioral disturbance, psychotic disturbance, mood disturbance, and anxiety; F31.9 Bipolar disorder, unspecified; G47.33 Obstructive sleep apnea (adult) (pediatric); G89.29 Other chronic pain; J44.9 Chronic obstructive pulmonary disease, unspecified; I12.9 Hypertensive chronic kidney disease with stage 1 through stage 4 chronic kidney disease, or unspecified chronic kidney disease; M21.372 Foot drop, left foot; K21.9 Gastro-esophageal reflux disease without esophagitis; M43.10 Spondylolisthesis, site unspecified; N20.0 Calculus of kidney; W19.XXXA Unspecified fall, initial encounter; Y92.009 Unspecified place in unspecified non-institutional (private) residence as the place of occurrence of the external cause; Z79.899 Other long term (current) drug therapy; Z79.82 Long term (current) use of aspirin; Z91.19 Patient's noncompliance with other medical treatment and regimen; Z98.890 Other specified postprocedural states
CPT/HCPCS: 36415; 70450; 70551; 71046; 71250; 72100; 72125; 76770; 80048; 80053; 80074; 80306; 80320; 81001; 82550; 82570; 82607; 82652; 83036; 83519; 83605; 83735; 83883; 84156; 84165; 84484; 85025; 85610; 85730; 86334; 86335; 87086; 93005; 93306; 95713; 95816; 96360; 96372; 99285

== ENCOUNTER → 2022-04-14 | Outpatient (CLI) | payer MEDICARE | END | disposition home or self-care (01) | LOC: LABWHC1 15:16 | PROVIDERS: ATTEND Nurse Practitioner Adult Health | DX: D86.9 Sarcoidosis, unspecified (principal) | CPT/HCPCS: 36415; 82164; 82310 ==

== ENCOUNTER → 2023-10-05 | Outpatient (CLI) | payer MEDICARE ==
--- NOTE | 2023-10-05 17:31 | XR ---
EXAMINATION TYPE: XR Hip Bilateral and AP pelvis DATE OF EXAM: 10/05/2023 5:00 PM CLINICAL INDICATION:Male, 73 years old with history of I13.10 Hypertensive heart; PH[facility] COMPARISON: None. TECHNIQUE: XR Hip Bilateral and AP pelvis; hip was examined in the frontal and lateral projections an d a AP pelvis. FINDINGS: No evidence for acute process, joint dislocation or significant soft tissue swelling. Osteo phyte formation of the superior acetabulum of the hips. Fixation hardware in the lower spine appears intact. IMPRESSION: 1. No evidence for acute process. 2. Mild hip osteoarthrosis.
--- NOTE | 2023-10-05 17:35 | XR ---
EXAMINATION TYPE: XR lumbosacral spine min 4V DATE OF EXAM: 10/05/2023 5:00 PM CLINICAL INDICATION:Male, 73 years old with history of I13.10 Hypertensive heart; PHH COMPARISON: None TECHNIQUE: XR lumbosacral spine min 4V - Frontal, lateral , bilateral oblique and coned in L5-S1 late ral views of the spine. FINDINGS: No evidence of any acute osseous pathology. No evidence of loss of vertebral body height i s seen. There is normal alignment of the lumbar vertebral bodies. Mild scattered disc space narrowing . Multilevel marginal osteophyte formation throughout the visualized spine. There is facet joint arth ropathy throughout the spine. Scattered at least mild neural foraminal stenosis. Fixation hardware th roughout the lower spine appears intact. Atherosclerosis of the arterial vasculature. IMPRESSION: 1. No acute fracture. 2. Post surgical changes with hardware intact. 3. Moderate to severe multilevel disc degeneration.
--- NOTE | 2023-10-05 17:35 | XR ---
EXAMINATION TYPE: XR chest 2V DATE OF EXAM: 10/05/2023 5:00 PM CLINICAL INDICATION:Male, 73 years old with history of I13.10 Hypertensive heart; COMPARISON: Chest radiographs from 03/28/2022 TECHNIQUE: XR chest 2V Frontal and lateral views of the chest. FINDINGS: Lungs/Pleura: There is no evidence of pleural effusion, focal consolidation, or pneumothorax. Pulmonary vascularity: Unremarkable. Heart/mediastinum: Cardiomediastinal silhouette is unremarkable. Musculoskeletal: No acute osseous pathology. IMPRESSION: No acute cardiopulmonary disease/process.
== END | disposition home or self-care (01) ==
LOC: RADXRMAIN 15:44
PROVIDERS: ATTEND Family Medicine
DX: I13.10 Hypertensive heart and chronic kidney disease without heart failure, with stage 1 through stage 4 chronic kidney disease, or unspecified chronic kidney disease (principal); M16.0 Bilateral primary osteoarthritis of hip; M51.36 Other intervertebral disc degeneration, lumbar region
CPT/HCPCS: 71046; 72110; 73521

== ENCOUNTER 2024-02-28 08:42 | Emergency (ER) | payer MEDICARE, OTHER ==
--- NOTE | 2024-02-28 09:02 | ED ---
General Adult HPI - General Chief complaint: Abdominal Pain Stated complaint: back pain,constipation Time Seen by Provider: 02/28/24 08:45 Source: patient, RN notes reviewed, old records reviewed Mode of arrival: EMS Limitations: no limitations - History of Present Illness Initial comments: This is a 73-year-old male who presents to the emergency department complaining of being constipated over 3 days. Patient states he has been unable to go but he denies any abdominal pain. Patient states he does have chronic back pain and it is maybe a little worse this morning. Patient states he takes no medications for his pain. Patient states he takes no medications at all. Patient denies any fever chills but patient has any diarrhea or vomiting. Patient denies any other symptoms at this time. - Related Data Previous Rx's Medication Instructions Recorded Tamsulosin [Flomax] 0.4 mg PO PC-SUPPER #30 04/02/22 Sodium Bicarbonate Tab 650 mg PO TID #90 tab 04/03/22 carvediloL [Coreg] 3.125 mg PO BID-W/MEALS #60 tab 04/03/22 Allergies Allergy/AdvReac Type Severity Reaction Status Date / Time No Known Allergies Allergy Verified 02/28/24 08:51 Review of Systems ROS Statement: Those systems with pertinent positive or pertinent negative responses have been documented in the HPI. ROS Other: All systems not noted in ROS Statement are negative. Past Medical History Past Medical History: GERD/Reflux, Hyperlipidemia, Hypertension, Musculoskeletal Disorder, Renal Disease, Sleep Apnea/CPAP/BIPAP Additional Past Medical History / Comment(s): uses CPAP History of Any Multi-Drug Resistant Organisms: None Reported Past Surgical History: Tonsillectomy Additional Past Surgical History / Comment(s): colonoscopy Past Anesthesia/Blood Transfusion Reactions: No Reported Reaction Past Psychological History: Bipolar Smoking Status: Unknown if ever smoked Past Alcohol Use History: Occasional Past Drug Use History: None Reported - Past Family History Mother Family Medical History: No Reported History General Exam - General Exam Comments Initial Comments: GENERAL: Patient is well-developed and well-nourished. Patient is nontoxic and well- hydrated and is in no acute distress. ENT: Neck is soft and supple. No significant lymphadenopathy is noted. Oropharynx is clear. Moist mucous membranes. Neck has full range of motion without eliciting any pain. EYES: The sclera were anicteric and conjunctiva were pink and moist. Extraocular movements were intact and pupils were equal round and reactive to light. Eyelids were unremarkable. PULMONARY: Unlabored respirations. Good breath sounds bilaterally. No audible rales rhonchi or wheezing was noted. CARDIOVASCULAR: There is a regular rate and rhythm without any murmurs gallops or rubs. ABDOMEN: Soft and nontender with normal bowel sounds. SKIN: Skin is clear with no lesions or rashes and otherwise unremarkable. NEUROLOGIC: Patient is alert and oriented x3. Cranial nerves II through XII are grossly intact. Motor and sensory are also intact. Normal speech, volume and content. Symmetrical smile. MUSCULOSKELETAL: Normal extremities with adequate strength and full range of motion. LYMPHATICS: No significant lymphadenopathy is noted PSYCHIATRIC: Normal psychiatric evaluation. Limitations: no limitations Course Vital Signs 02/28/24 02/28/24 08:47 09:30 Temperature 98.1 F Pulse Rate 100 76 Respiratory 16 18 Rate Blood Pressure 151/99 140/87 O2 Sat by Pulse 97 97 Oximetry Medical Decision Making - Medical Decision Making Was pt. sent in by a medical professional or institution (, PA, [facility] [facility], urgent care, hospital, or residential...) When possible be specific @ -No Did you speak to anyone other than the patient for history (EMS, parent, family, police, friend...)? What history was obtained from this source @ -No Did you review nursing and triage notes (agree or disagree)? Why? @ -I reviewed and agree with nursing and triage notes Were old charts reviewed (outside hosp., previous admission, EMS record, old EKG, old radiological studies, urgent care reports/EKG's, residential records)? Report findings @ -No old charts were reviewed Differential Diagnosis (chest pain, altered mental status, abdominal pain women, abdominal pain men, vaginal bleeding, weakness, fever, dyspnea, syncope, headache, dizziness, GI bleed, back pain, seizure, CVA, palpatations, mental health, musculoskeletal)? @ -Not applicable EKG interpreted by me (3pts min.). @ -As above X-rays interpreted by me (1pt min.). @ -KUB showed constipation CT interpreted by me (1pt min.). @ -None done U/S interpreted by me (1pt. min.). @ -None done What testing was considered but not performed or refused? (CT, X-rays, U/S, labs)? Why? @ -None What meds were considered but not given or refused? Why? @ -None Did you discuss the management of the patient with other professionals (professionals i.e. , PA, [employer] [facility], lab, RT, psych nurse, oncology social work, sandblast or shotblast equipment tender, teacher, special weapons unit officer, correctional casework specialist)? Give summary @ -No Was smoking cessation discussed for >3mins.? @ -No Was critical care preformed (if so, how long)? @ -No Were there social determinants of health that impacted care today? How? (Homelessness, low income, unemployed, alcoholism, drug addiction, transportation, low edu. Level, literacy, decrease access to med. care, residential, rehab)? @ -No Was there de-escalation of care discussed even if they declined (Discuss DNR or withdrawal of care, Hospice)? DNR status @ -No What co-morbidities impacted this encounter? (DM, HTN, Smoking, COPD, CAD, Cancer, CVA, ARF, Chemo, Hep., AIDS, mental health diagnosis, sleep apnea, morbid obesity)? @ -None Was patient admitted / discharged? Hospital course, mention meds given and route, prescriptions, significant lab abnormalities, going to OR and other pertinent info. @ -Patient had a KUB showed constipation. Patient was given an enema and told me he had good results and felt better wanted be discharged home Undiagnosed new problem with uncertain prognosis? @ -No Drug Therapy requiring intensive monitoring for toxicity (Heparin, Nitro, In sulin, Cardizem)? @ -No Were any procedures done? @ -No Diagnosis/symptom? @ -Constipation Acute, or Chronic, or Acute on Chronic? @ -Acute Uncomplicated (without systemic symptoms) or Complicated (systemic symptoms)? @ -Uncomplicated Side effects of treatment? @ -No Exacerbation, Progression, or Severe Exacerbation? @ -No Poses a threat to life or bodily function? How? (Chest pain, [place], VA, pneumonia, PE, COPD, DKA, ARF, appy, cholecystitis, CVA, Diverticulitis, Homicidal, Suicidal, threat to staff... and all critical care pts) @ -No Disposition Clinical Impression: Constipation Disposition: HOME SELF-CARE Condition: Good Instructions (If sedation given, give patient instructions): Constipation (ED), High Fiber Diet (ED) Additional Instructions: If patient has further problems with constipation patient should take mag citrate. Patient should also add Benefiber to his daily regime twice a day Is patient prescribed a controlled substance at d/c from ED?: No Referrals: Andrzej Devi DO [REFERRING] - 1-2 days Time of Disposition: 12:26
[2024-02-28] MEDS: KETOROLAC 15 MG/ML 1 ML VIAL IM STA (09:15)
[2024-02-28] MEDS: MAGNESIUM CITRATE 296 ML BOTTLE PO ONE (13:01)
[2024-02-28 13:30] VITALS: BP 142/85; PULSE 87; RESP 14; TEMP 98
--- NOTE | 2024-02-29 12:33 | XR ---
EXAMINATION TYPE: XR KUB DATE OF EXAM: 02/28/2024 COMPARISON: NONE HISTORY: Pain TECHNIQUE: Single supine KUB image of the abdomen is obtained FINDINGS: Small bowel demonstrates no evidence for dilatation or air fluid levels. Gas and fecal material is seen in non-distended colon. No convincing evidence for pneumoperitoneum. No unusual calcifications. The lung bases are clear. The osseous structures are intact. Postoperative changes lumbar spine. IMPRESSION: 1. Overall nonobstructive bowel gas pattern.
== END 2024-02-28 13:02 | disposition home or self-care (01) ==
LOC: EC 08:42
DX: K59.00 Constipation, unspecified (principal)
CPT/HCPCS: 74018; 99284; 96372; J1885

== ENCOUNTER 2024-04-17 13:36 | Inpatient (IN) | payer MEDICARE ==
--- NOTE | 2024-04-17 14:32 | ED ---
General Adult HPI - General Chief complaint: Weakness Stated complaint: Weakness Time Seen by Provider: 04/17/24 14:00 Source: patient, family, RN notes reviewed, old records reviewed Mode of arrival: EMS Limitations: no limitations - History of Present Illness Initial comments: This is a 73-year-old male who presents to the emergency department stating that he was sent in by family. Patient states he has no complaints. Patient denies chest pain difficulty breathing shortness of breath. Patient [place] any abdominal pain patient has nausea vomiting diarrhea. Patient denies injury or trauma. Family sent him in because they state he is getting weaker and not following his prescriptions as they are written. Patient denies any fever or chills. Patient does not want to be here. - Related Data Home Medications Medication Instructions Recorded Confirmed Gabapentin 600 mg PO BID 04/17/24 04/17/24 HYDROcodone/APAP 7.5-325MG [[place] 1 tab PO BID 04/17/24 04/17/24 7.5-325] Allergies Allergy/AdvReac Type Severity Reaction Status Date / Time No Known Allergies Allergy Verified 04/17/24 15:54 Review of Systems ROS Statement: Those systems with pertinent positive or pertinent negative responses have been documented in the HPI. ROS Other: All systems not noted in ROS Statement are negative. Past Medical History Past Medical History: GERD/Reflux, Hyperlipidemia, Hypertension, Musculoskeletal Disorder, Renal Disease, Sleep Apnea/CPAP/BIPAP Additional Past Medical History / Comment(s): uses CPAP History of Any Multi-Drug Resistant Organisms: None Reported Past Surgical History: Tonsillectomy Additional Past Surgical History / Comment(s): colonoscopy Past Anesthesia/Blood Transfusion Reactions: No Reported Reaction Past Psychological History: Bipolar Smoking Status: Unknown if ever smoked Past Alcohol Use History: Occasional Past Drug Use History: None Reported - Past Family History Mother Family Medical History: No Reported History General Exam - General Exam Comments Initial Comments: GENERAL: Patient is well-developed and well-nourished. Patient is nontoxic and well- hydrated and is in no acute distress. ENT: Neck is soft and supple. No significant lymphadenopathy is noted. Oropharynx is clear. Moist mucous membranes. Neck has full range of motion without eliciting any pain. EYES: The sclera were anicteric and conjunctiva were pink and moist. Extraocular movements were intact and pupils were equal round and reactive to light. Eyelids were unremarkable. PULMONARY: Unlabored respirations. Good breath sounds bilaterally. No audible rales rhonchi or wheezing was noted. CARDIOVASCULAR: There is a regular rate and rhythm without any murmurs gallops or rubs. ABDOMEN: Soft and nontender with normal bowel sounds. SKIN: Skin is clear with no lesions or rashes and otherwise unremarkable. NEUROLOGIC: Patient is alert and oriented difficult to understand so unable to get a definitive answer. Cranial nerves II through XII are grossly intact. Motor and sensory are also intact. Patient's speech is very garbled but according to EMS family stated this was absolutely normal. Symmetrical smile. Cerebellar exam grossly intact. MUSCULOSKELETAL: Normal extremities with adequate strength and full range of motion. No lower extremity swelling or edema. No calf tenderness. LYMPHATICS: No significant lymphadenopathy is noted PSYCHIATRIC: Normal psychiatric evaluation. Limitations: no limitations Course Vital Signs 04/17/24 04/17/24 13:50 15:00 Temperature 98.2 F Pulse Rate 97 79 Respiratory 16 16 Rate Blood Pressure 131/71 131/71 O2 Sat by Pulse 96 97 Oximetry Medical Decision Making - Medical Decision Making EKG is interpreted by myself read EKG shows a sinus rhythm at 97 bpm GA interval 195 QRS of 140 QT interval 358 QTc is 412. Patient EKG shows no ST segment elevation or depression. Patient has a right bundle branch block. Was pt. sent in by a medical professional or institution (BLANCA Robertson, PEDIATRIC NURSE PRACTITIONER, urgent ca re, hospital, or care home...) When possible be specific @ -Patient's [id number] and niece sent the patient into the emergency department Did you speak to anyone other than the patient for history (EMS, parent, family, police, friend...)? What history was obtained from this source @ -Niece and [id number] give a substantial portion of the history because the patient would rather not be here and so is reluctant to say anything is wrong Did you review nursing and triage notes (agree or disagree)? Why? @ -I reviewed and agree with nursing and triage notes Were old charts reviewed (outside hosp., previous admission, EMS record, old EKG, old radiological studies, urgent care reports/EKG's, care home records)? Report findings @ -No old charts were reviewed Differential Diagnosis (chest pain, altered mental status, abdominal pain women, abdominal pain men, vaginal bleeding, weakness, fever, dyspnea, syncope, headache, dizziness, GI bleed, back pain, seizure, CVA, palpatations, mental health, musculoskeletal)? @ -Differential Weakness: Hypoglycemia, shock, sepsis, hyponatremia, anemia, infection, NE, ETOH, adverse medicine reaction, overdose, stroke, this is not meant to be an all-inclusive list. EKG interpreted by me (3pts min.). @ -As above X-rays interpreted by me (1pt min.). @ -Chest x-ray shows no acute abnormality CT interpreted by me (1pt min.). @ -None done U/S interpreted by me (1pt. min.). @ -None done What testing was considered but not performed or refused? (CT, X-rays, U/S, labs)? Why? @ -None What meds were considered but not given or refused? Why? @ -None Did you discuss the management of the patient with other professionals (professionals i.e. , PA, PEDIATRIC NURSE PRACTITIONER, lab, RT, psych nurse, clinical social work therapist, intellectual property lawyer, teacher, accounts officer, heel caser)? Give summary @ -I spoke with sound physicians they agreed to admit the patient Was smoking cessation discussed for >3mins.? @ -No Was critical care preformed (if so, how long)? @ -No Were there social determinants of health that impacted care today? How? (Homelessness, low income, unemployed, alcoholism, drug addiction, transportation, low edu. Level, literacy, decrease access to med. care, [place] [facility], rehab)? @ -No Was there de-escalation of care discussed even if they declined (Discuss DNR or withdrawal of care, Hospice)? DNR status @ -No What co-morbidities impacted this encounter? (DM, HTN, Smoking, COPD, CAD, Cancer, CVA, ARF, Chemo, Hep., AIDS, mental health diagnosis, sleep apnea, morbid obesity)? @ -None Was patient admitted / discharged? Hospital course, mention meds given and route, prescriptions, significant lab abnormalities, going to OR and other pertinent info. @ -Patient was reluctant to be admitted but he eventually agreed to be admitted for rehabilitation. Undiagnosed new problem with uncertain prognosis? @ -No Drug Therapy requiring intensive monitoring for toxicity (Heparin, Nitro, Insulin, Cardizem)? @ -No Were any procedures done? @ -No Diagnosis/symptom? @ -General weakness Acute, or Chronic, or Acute on Chronic? @ -Acute Uncomplicated (without systemic symptoms) or Complicated (systemic symptoms)? @ -Default Side effects of treatment? @ -No Exacerbation, Progression, or Severe Exacerbation? @ -No Poses a threat to life or bodily function? How? (Chest pain, USA, NE, pneumonia, PE, COPD, DKA, ARF, appy, cholecystitis, CVA, Diverticulitis, Homicidal, Suicidal, threat to staff... and all critical care pts) @ -No - Lab Data Result diagrams: 04/17/24 14:20 04/17/24 14:20 Lab Results 04/17/24 04/17/24 04/17/24 Range/Units 14:20 14:20 14:20 WBC 6.6 (3.8-10.6) k/uL RBC 5.22 (4.30-5.90) m/uL Hgb 14.4 (13.0-17.5) gm/dL Hct 46.5 (39.0-53.0) % MCV 89.1 (80.0-100.0) fL MCH 27.6 (25.0-35.0) pg MCHC 31.0 (31.0-37.0) g/dL RDW 14.3 (11.5-15.5) % Plt Count 256 (150-450) k/uL MPV 7.6 Neutrophils % 62 % Lymphocytes % 16 % Monocytes % 14 % Eosinophils % 3 % Basophils % 1 % Neutrophils # 4.1 (1.3-7.7) k/uL Lymphocytes # 1.0 (1.0-4.8) k/uL Monocytes # 0.9 (0-1.0) k/uL Eosinophils # 0.2 (0-0.7) k/uL Basophils # 0.1 (0-0.2) k/uL PT 10.1 (10.0-12.5) sec INR 0.9 (<1.2) APTT 24.4 (22.0-30.0) sec Sodium 138 (137-145) mmol/L Potassium 4.1 (3.5-5.1) mmol/L Chloride 107 (98-107) mmol/L Carbon Dioxide 24 (22-30) mmol/L Anion Gap 7 mmol/L BUN 42 H (9-20) mg/dL Creatinine 2.45 H (0.66-1.25) mg/dL Est GFR (CKD-EPI)AfAm 29 (>60 ml/min/1.73 sqM) Est GFR (CKD-EPI)NonAf 25 (>60 ml/min/1.73 sqM) Glucose 93 (74-99) mg/dL Plasma Lactic Acid Daryl (0.7-2.0) mmol/L Calcium 9.8 (8.4-10.2) mg/dL Magnesium 2.2 (1.6-2.3) mg/dL Total Bilirubin 0.5 (0.2-1.3) mg/dL AST 29 (17-59) U/L ALT 27 (4-49) U/L Alkaline Phosphatase 91 (38-126) U/L Troponin I (0.000-0.034) ng/mL Total Protein 6.5 (6.3-8.2) g/dL Albumin 3.7 (3.5-5.0) g/dL Urine Color Urine Appearance (Clear) Urine pH (5.0-8.0) Ur Specific [place] (1.001-1.035) Urine Protein (Negative) Urine Glucose (UA) (Negative) Urine Ketones (Negative) Urine Blood (Negative) Urine Nitrite (Negative) Urine Bilirubin (Negative) Urine Urobilinogen (<2.0) mg/dL Ur Leukocyte Esterase (Negative) 04/17/24 04/17/24 04/17/24 Range/Units 14:20 14:20 15:28 WBC (3.8-10.6) k/uL RBC (4.30-5.90) m/uL Hgb (13.0-17.5) gm/dL Hct (39.0-53.0) % MCV (80.0-100.0) fL MCH (25.0-35.0) pg MCHC (31.0-37.0) g/dL RDW (11.5-15.5) % Plt Count (150-450) k/uL MPV Neutrophils % % Lymphocytes % % Monocytes % % Eosinophils % % Basophils % % Neutrophils # (1.3-7.7) k/uL Lymphocytes # (1.0-4.8) k/uL Monocytes # (0-1.0) k/uL Eosinophils # (0-0.7) k/uL Basophils # (0-0.2) k/uL PT (10.0-12.5) sec INR (<1.2) APTT (22.0-30.0) sec Sodium (137-145) mmol/L Potassium (3.5-5.1) mmol/L Chloride (98-107) mmol/L Carbon Dioxide (22-30) mmol/L Anion Gap mmol/L BUN (9-20) mg/dL Creatinine (0.66-1.25) mg/dL Est GFR (CKD-EPI)AfAm (>60 ml/min/1.73 sqM) Est GFR (CKD-EPI)NonAf (>60 ml/min/1.73 sqM) Glucose (74-99) mg/dL Plasma Lactic Acid Daryl 1.3 (0.7-2.0) mmol/L Calcium (8.4-10.2) mg/dL Magnesium (1.6-2.3) mg/dL Total Bilirubin (0.2-1.3) mg/dL AST (17-59) U/L ALT (4-49) U/L Alkaline Phosphatase (38-126) U/L Troponin I <0.012 (0.000-0.034) ng/mL Total Protein (6.3-8.2) g/dL Albumin (3.5-5.0) g/dL Urine Color Colorless Urine Appearance Clear (Clear) Urine pH 5.5 (5.0-8.0) Ur Specific [place] 1.011 (1.001-1.035) Urine Protein Trace H (Negative) Urine Glucose (UA) Negative (Negative) Urine Ketones Negative (Negative) Urine Blood Negative (Negative) Urine Nitrite Negative (Negative) Urine Bilirubin Negative (Negative) Urine Urobilinogen <2.0 (<2.0) mg/dL Ur Leukocyte Esterase Negative (Negative) Disposition Clinical Impression: Generalized weakness Disposition: ADMITTED IP TO THIS HOSP Referrals: None,Stated [REFERRING] - 1-2 days Time of Disposition: 19:55
[2024-04-17 14:38] LABS: Basophils # (A) 0.1 k/uL (0-0.2); Basophils % (A) 1 %; Eosinophils # (A) 0.2 k/uL (0-0.7); Eosinophils % (A) 3 %; HCT 46.5 % (39.0-53.0); HGB 14.4 gm/dL (13.0-17.5); Lymphocytes % (A) 16 %; MCH 27.6 pg (25.0-35.0); MCV 89.1 fL (80.0-100.0); Mean Platelet Volume 7.6; Monocytes # (A) 0.9 k/uL (0-1.0); Monocytes % (A) 14 %; Neutrophils # (A) 4.1 k/uL (1.3-7.7); Neutrophils % (A) 62 %; Platelet Count 256 k/uL (150-450); RBC 5.22 m/uL (4.30-5.90); RDW 14.3 % (11.5-15.5); WBC 6.6 k/uL (3.8-10.6)
[2024-04-17 14:51] LABS: ALT 27 U/L (4-49); AST 29 U/L (17-59); African American GFR (CKD) 29 (>60 ml/min/1.73 sqM); Albumin 3.7 g/dL (3.5-5.0); Alkaline Phosphatase 91 U/L (38-126); Anion Gap 7 mmol/L; Blood Urea Nitrogen 42 mg/dL (9-20); Calcium 9.8 mg/dL (8.4-10.2); Carbon Dioxide 24 mmol/L (22-30); Chloride 107 mmol/L (98-107); Glucose 93 mg/dL (74-99); Magnesium 2.2 mg/dL (1.6-2.3); Non-African American GFR(CKD) 25 (>60 ml/min/1.73 sqM); Potassium 4.1 mmol/L (3.5-5.1); Sodium 138 mmol/L (137-145); Total Bilirubin 0.5 mg/dL (0.2-1.3); Total Protein 6.5 g/dL (6.3-8.2)
[2024-04-17 14:57] LABS: INR 0.9 (<1.2); Partial Thromboplastin Time 24.4 sec (22.0-30.0); Prothrombin Time 10.1 sec (10.0-12.5)
[2024-04-17 15:36] LABS: Appearance,Urine Clear (Clear); Bilirubin,Urine Negative (Negative); Blood,Urine Negative (Negative); Color,Urine Colorless; Glucose,Urine (UA) Negative (Negative); Ketones,Urine Negative (Negative); Leukocyte Esterase,Urine Negative (Negative); Nitrite,Urine Negative (Negative); PH, Urine 5.5 (5.0-8.0); Protein,Urine Trace (Negative); Specific Gravity,Urine 1.011 (1.001-1.035); Urobilinogen,Urine <2.0 mg/dL (<2.0)
--- NOTE | 2024-04-17 17:05 | XR ---
EXAMINATION TYPE: XR chest 2V DATE OF EXAM: 04/17/2024 COMPARISON: 10/05/2023 INDICATION: Weakness TECHNIQUE: Frontal and lateral views of the chest are obtained. FINDINGS: The heart size is normal. The pulmonary vasculature is normal. The lungs are clear. IMPRESSION: 1. No acute pulmonary process.
[2024-04-17] MEDS: SODIUM CHLORIDE 0.9% 1,000 ML IV ONE (21:02)
--- NOTE | 2024-04-17 23:28 | P.HPIM ---
History of Present Illness H&P Date: 04/17/24 Patient is a 73-year-old male with a PMH of chronic kidney disease stage IV, hypertension and bipolar disorder who was brought into the emergency room by his niece for progressive bilateral lower extremity weakness. The patient notes that his legs have been getting weaker over the past 2 years, and that he is currently essentially wheelchair-bound. Discussed the case in detail with the patient's power of corporate safety manager (his niece) Kim Cleaning who reported that the patient lives by himself and has been getting progressively weaker. They have attempted numerous things including enrolling in home PT for the past several months and arranging for home visiting nursing and home aides to help with his meals. The patient however does not currently have the funds to afford full- time care. The patient's family had discussed the case with his PCP who had advised a possible inpatient rehab stay due to the extent of his weakness. Up until a few weeks ago, the patient was able to ambulate via walker to use the restroom but is currently defecating and urinating in a bucket next to his couch. The patient's niece reportedly checks in on him daily to help him with these tasks. The patient denied experiencing strokes in the past. Denied upper extremity weakness. Reports a long-standing history of chronic lower back pain which is unchanged over the past several years. . He denies urinary or fecal incontinence or retention. Also denied experiencing headaches, visual disturbances, facial droop, chest pain, shortness of breath, fever, chills, cough, abdominal pain, diarrhea. Chest x-ray in the emergency room was unremarkable with EKG showing sinus rhythm at 97 bpm with a right bundle branch block as reviewed by me. Laboratory evaluation was remarkable for BUN 42, and creatinine 2.45. ED documentation reviewed and case discussed with ED provider. Review of systems: Pertinent positives and negatives as discussed in HPI, a complete review of systems was performed and all other systems are negative. Physical examination: Vital signs reviewed General: non toxic, no distress, appears at stated age, overweight Derm: no unusual rashes/lesions, warm Head: atraumatic, normocephalic, symmetric Eyes: EOMI, no lid lag, anicteric sclera, pupils equal round reactive to light ENT: Nose and ears atraumatic Neck: No cervical lymphadenopathy, trachea midline, supple Mouth: no lip lesion, mucus membranes moist Cardiovascular: S1S2 reg, no murmur, positive dorsalis pedis pulse bilateral, no edema Lungs: CTA bilateral, no rhonchi, no rales, no accessory muscle use Abdominal: soft, nontender to palpation, no guarding Ext: Muscle strength 2/5 of bilateral LEs proximally and distally at hip, knee, and ankle with strength 5/5 of bilateral UEs grossly, no gross muscle atrophy, no contractures Neuro: CN II-XI grossly intact, no gross focal neuro deficits, somewhat slurred speech Psych: Alert, oriented, appropriate affect Assessment: Progressive lower extremity weakness with lower back pain Chronic conditions: Chronic kidney disease stage IV, hypertension, bipolar disorder Imaging: Chest x-ray in the emergency room was unremarkable with EKG showing sinus rhythm at 97 bpm with a right bundle branch block as reviewed by me Data Review: Laboratory evaluation was remarkable for BUN 42, and creatinine 2.45. Plan: PT and neurology consultation Fall precautions Monitor BMP DVT prophylaxis: Lovenox subcu The patient is admitted with an anticipated less than 2 midnight stay for evaluation of weakness CODE STATUS: Full Code Discussed with: Patient Anticipated discharge place: [facility] Past Medical History Past Medical History: GERD/Reflux, Hyperlipidemia, Hypertension, Musculoskeletal Disorder, Renal Disease, Sleep Apnea/CPAP/BIPAP Additional Past Medical History / Comment(s): uses CPAP. pt states he had a stroke a long time ago, speech is garbled, but pt answers questions appropriately and is alert and oriented and able to eat and drink by self without coughing. History of Any Multi-Drug Resistant Organisms: None Reported Past Surgical History: Tonsillectomy Additional Past Surgical History / Comment(s): colonoscopy Past Anesthesia/Blood Transfusion Reactions: No Reported Reaction Past Psychological History: Bipolar Smoking Status: Never smoker Past Alcohol Use History: Occasional Past Drug Use History: None Reported - Past Family History Mother Family Medical History: Hypertension Medications and Allergies Home Medications Medication Instructions Recorded Confirmed Type Gabapentin 600 mg PO BID 04/17/24 04/17/24 History HYDROcodone/APAP 7.5-325MG [[place] 1 tab PO BID 04/17/24 04/17/24 History 7.5-325] Allergies Allergy/AdvReac Type Severity Reaction Status Date / Time No Known Allergies Allergy Verified 04/17/24 15:54 Physical Exam Vitals: Vital Signs Temp Pulse Pulse Resp BP BP Pulse Ox 04/17/24 21:41 98.4 F 82 17 156/86 97 04/17/24 21:02 85 16 126/57 98 04/17/24 15:00 79 16 131/71 97 04/17/24 13:50 98.2 F 97 16 131/71 96 Intake and Output 04/17/24 04/17/24 04/18/24 14:59 22:59 06:59 Other: # Voids 0 # Bowel Movements 0 Weight 88.451 kg 88.451 kg Results CBC & Chem 7: 04/17/24 14:20 04/17/24 14:20 Labs: Abnormal Lab Results - Last 24 Hours (Table) 04/17/24 04/17/24 Range/Units 14:20 15:28 BUN 42 H (9-20) mg/dL Creatinine 2.45 H (0.66-1.25) mg/dL Urine Protein Trace H (Negative) Thrombosis Risk Factor Assmnt - Choose All That Apply Each Factor Represents 1 point: Obesity (BMI >25) Each Risk Factor Represents 2 Points: Age 61-74 years Thrombosis Risk Factor Assessment Total Risk Factor Score: 3 Thrombosis Risk Factor Assessment Level: Moderate Risk
[2024-04-18] MEDS: ENOXAPARIN 40 MG/0.4 ML SYRINGE SQ SCH (08:59)
--- NOTE | 2024-04-18 10:08 | US ---
EXAMINATION TYPE: US carotid duplex BILAT DATE OF EXAM: 04/18/2024 COMPARISON: NONE CLINICAL INDICATION: Male, 73 years old with history of cva; CVA TECHNIQUE: Carotid duplex ultrasound examination. Indirect Doppler criteria was utilized. FINDINGS: EXAM MEASUREMENTS: RIGHT: Peak Systolic Velocity (PSV) cm/sec ----- Right CCA: 72.0 ----- Right ICA: 99.2 ----- Right ECA: 119 ICA/CCA ratio: 1.4 RIGHT: End Diastole cm/sec ----- Right CCA: 15.7 ----- Right ICA: 17.8 ----- Right ECA: 13.7 LEFT: Peak Systolic Velocity (PSV) cm/sec ----- Left CCA: 62.4 ----- Left ICA: 104 ----- Left ECA: 96.9 ICA/CCA ratio: 1.7 LEFT: End Diastole cm/sec ----- Left CCA: 15.4 ----- Left ICA: 28.2 ----- Left ECA: 13.3 VERTEBRALS (direction of flow): Right Vertebral: not visualized Left Vertebral: Antegrade Rhythm: Normal ULTRASONIC SOLDERER NOTES: No significant stenosis seen, elevated velocities, or ratios seen. Bilateral plaqu e at the carotid bulbs L>R IMPRESSION: Less than 50% stenosis of the bilateral carotid bifurcations. Criteria for Assigning % of Stenosis / Diameter reduction (Estimation based on the indirect measurements of the internal carotid artery velocities (ICA PSV). 1. Normal (no stenosis)=ICA PSV < 125 cm/s: ratio < 2.0: ICA EDV<40 cm/s. 2. Less than 50% stenosis=ICA PSV < 125 cm/s: ratio < 2.0: ICA EDV<40 cm/s. 3. 50 to 69% stenosis=ICA PSV of 125 to 230 cm/s: ration 2.0 ? 4.0: ICA EDV 40-100 cm/s. 4. Greater than 70% stenosis to near occlusion= ICA PSV > 230 cm/s: ratio > 4.0: ICA EDV > 100 cm/s. 5. Near occlusion= ICA PSV velocities may be low or undetectable: variable ratio and ICA EDV. 6. Total occlusion=unable to detect flow.
[2024-04-18] MEDS: ASPIRIN 81 MG PO STA (10:20)
--- NOTE | 2024-04-18 11:18 | P.PN ---
Subjective Progress Note Date: 04/18/24 Patient continues to have left lower extremity weakness greater than right lower extremity weakness as well as left upper extremity weakness and dysarthria. Suspect stroke which has been yet undiagnosed. Gen: In NAD, non-toxic HEENT: normocephalic, atraumatic, hearing acuity is intant, mucous membranes moist CVS: perfusing all extremities well, no pitting edema, Respiratory: symmetric chest expansion, no accessory muscle use, GI: soft, NTTP, ND, : no suprapubic tenderness, no CVA tenderness MSK/Derm: no rashes, cyanosis Neuro: Left lower extremity weakness greater than right lower extremity w eakness, left upper extremity weakness is present, no numbness, reflexes are 2+ throughout, Babinski is negative bilaterally Psych: cooperative, euthymic mood, judgment and insight is intact Hospital course: Patient is a 73-year-old male with a PMH of chronic kidney disease stage IV, hypertension and bipolar disorder who was brought into the emergency room by his niece for progressive bilateral lower extremity weakness. Chest x-ray in the emergency room was unremarkable with EKG showing sinus rhythm at 97 bpm with a right bundle branch block as reviewed by me. Laboratory evaluation was remarkable for BUN 42, and creatinine 2.45. Assessment: Progressive lower extremity weakness Left-sided weakness greater than right-sided weakness Dysarthria -PT, OT, speech therapy consult -Aspirin, statin -TSH, lipid panel, A1c -Carotid Doppler -MRI of the brain -Fall precautions Chronic kidney disease, stage IV -Monitor BMP Chronic conditions: hypertension, bipolar disorder DVT prophylaxis: Lovenox subcu The patient is admitted with an anticipated less than 2 midnight stay for evaluation of weakness CODE STATUS: Full Code Discussed with: Patient Anticipated discharge place: [facility] Objective - Vital Signs Vital signs: Vital Signs Temp 97.7 F 04/18/24 07:00 Pulse 73 04/18/24 07:00 Resp 16 04/18/24 07:00 BP 124/70 04/18/24 07:00 Pulse Ox 97 04/18/24 07:00 FiO2 Intake & Output 04/17/24 04/18/24 04/18/24 18:59 06:59 18:59 Intake Total 118 Output Total 600 Balance -600 118 Weight 88.451 kg 88.451 kg Intake: Oral 118 Output: Urine 600 Other: # Voids 0 # Bowel Movements 0 - Labs CBC & Chem 7: 04/17/24 14:20 04/17/24 14:20 Labs: Abnormal Lab Results - Last 24 Hours (Table) 04/17/24 04/17/24 Range/Units 14:20 15:28 BUN 42 H (9-20) mg/dL Creatinine 2.45 H (0.66-1.25) mg/dL Urine Protein Trace H (Negative)
--- NOTE | 2024-04-18 16:51 | MR ---
EXAMINATION TYPE: MR brain wo con DATE OF EXAM: 04/18/2024 4:44 PM CLINICAL INDICATION:Male, 73 years old with history of dysarthria, left weakness > right, urinary ret enti; PHH, Dysarthria, left weakness > right, urinary retention COMPARISON: 03/31/2022 . TECHNIQUE: Multi planar, multi sequence imaging was performed through the brain including: T1, T2, In version recovery, Diffusion weighted imaging, and gradient echo imaging. No gadolinium was given. FINDINGS: Mild cerebral atrophy with proportional dilation of ventricular system. Minimal scattered foci of h igh T2 signal intensity are seen within the periventricular white matter. Midline structures show no abnormality. Diffusion-weighted imaging shows no evidence of restricted diffusion. The susceptibility weighted images do not reveal any evidence for micro-hemorrhage. The bone marrow signal is within normal limits. Paranasal sinuses and mastoid air cells: No significant paranasal sinus disease. Visualized orbits: Orbital contents are intact. IMPRESSION: 1. No evidence of intracranial mass or acute/subacute infarct. 2. Minimal scattered nonspecific white matter changes, likely secondary to small vessel ischemic dise ase.
[2024-04-18] MEDS: GABAPENTIN 300 MG CAP PO SCH (19:51)
[2024-04-18] MEDS: ATORVASTATIN 80 MG TAB PO SCH (19:52)
[2024-04-18] MEDS: MORPHINE SULFATE 2 MG/ML SYRINGE IVP STA (23:59)
--- NOTE | 2024-04-19 08:58 | FL ---
Exam Date: 04/19/2024 8:43 AM. Modified barium swallow for dysphagia. Consistencies administered: Various consistency of barium. Fluoro time: 1 minute 35 No images were sent to PACS. Please see speech pathology report. DAP: Not reported mGym2 Gycm2
[2024-04-19] MEDS: ENOXAPARIN 30 MG/0.3 ML SYRINGE SQ SCH (09:05)
[2024-04-19] MEDS: ASPIRIN 81 MG PO SCH (09:45)
--- NOTE | 2024-04-19 09:51 | CA ---
Transthoracic Echo Report Name: Martin Salmeron Age: 73 Gender: M : 1950 Exam Date: 04/18/2024 15:49 Exam Location: [facility] Ht (in): 69 Wt (lb): 195 Ordering Physician: Isis Bhagat MD Attending/Referring Phys: Textile Screen Printer Galilea Villatoro RDCS Procedure CPT: Indications: CVA Cardiac Hx: Technical Quality: Fair Contrast 1: Definity Total Dose (mL): 2 Contrast 2: Agitated Saline Total Dose (mL): MEASUREMENTS (Male / Female) Normal Values 2D ECHO LV Diastolic Diameter PLAX 4.6 cm 4.2 - 5.9 / 3.9 - 5.3 cm LV Systolic Diameter PLAX 2.5 cm IVS Diastolic Thickness 1.3 cm 0.6 - 1.0 / 0.6 - 0.9 cm LVPW Diastolic Thickness 1.1 cm 0.6 - 1.0 / 0.6 - 0.9 cm LV Relative Wall Thickness 0.5 RV Internal Dim ED PLAX 2.2 cm LVOT Diameter 1.9 cm LA Systolic Diameter LX 3.7 cm 3.0 - 4.0 / 2.7 - 3.8 cm M-MODE Aortic Root Diameter MM 3.5 cm LA Systolic Diameter MM 3.4 cm LA Ao Ratio MM 1.0 AV Cusp Separation MM 1.7 cm DOPPLER AV Peak Velocity 159.8 cm/s AV Peak Gradient 10.2 mmHg MV Area PHT 2.9 cm??? Mitral E Point Velocity 68.1 cm/s Mitral A Point Velocity 86.2 cm/s Mitral E to A Ratio 0.8 MV Deceleration Time 259.2 ms TR Peak Velocity 151.7 cm/s TR Peak Gradient 9.2 mmHg FINDINGS Left Ventricle Left ventricular ejection fraction is estimated at 55-60 %. Mildly increased septal wall thickness. Left ventricular cavity size normal. Right Ventricle Normal right ventricular size and function. Right ventricular systolic pressure within normal limits. Right Atrium Normal right atrial size. Negative agitated saline bubble study for right to left shunt. Left Atrium Normal left atrial size. No spontaneous echo contrast seen in the left atrium. Mitral Valve Structurally normal mitral valve. Trace mitral regurgitation. Aortic Valve Trileaflet aortic valve. Diffuse thickening (sclerosis) of the aortic valve cusps without reduced excursion. Tricuspid Valve Structurally normal tricuspid valve. Trace tricuspid regurgitation. Pulmonic Valve Structurally normal pulmonic valve. No pulmonic stenosis. Trace pulmonic regurgitation. Pericardium No pericardial or pleural effusion. Aorta Normal size aortic root and proximal ascending aorta. CONCLUSIONS Left ventricular ejection fraction 55-60% Mildly increased left ventricular wall thickness Negative bubble study Trace mitral regurgitation Trace tricuspid regurgitation No pericardial effusion Previewed by: Dr. Ulises Hudson DO (Electronically Signed) Final Date: 19 Apr 2024 09:50
[2024-04-19 11:03] LABS: LDL Cholesterol,Calculated 113.6 mg/dL (0.0-131.0)
--- NOTE | 2024-04-19 13:23 | P.CNNES ---
History of Present Illness Consult date: 04/19/24 Requesting physician: Isis Bhagat Reason for Consult: Tongue fasciculation History of Present Illness: This is a 73-year-old gentleman who presents because of worsening of his weakness. Some of the history is obtained from the patient's niece who is at bedside. It seems that the patient has been having left leg weakness going on for the past 1 year that is progressively gotten worse and eventually is not able to walk. He has been having difficulty with speech and swallow for the last 8 months that is progressively getting worse. According to the niece in the last 1 week he got really worse that he is unable to even use his walker. He denies any numbness tingling in the upper or lower extremity. Denies any bladder or bowel issues. Denies any visual disturbance. According to the niece he is having progressively worsening of swallowing and his tongue feels a bit twitchy that the niece describes. He resides alone but has his niece come over on Mondays as well as it has an aide that comes to his house twice a week. He refused any workup in the past and declined EMG with nerve conduction study. He refused to be evaluated by ENT as an outpatient. Sickness prior to that. Denies any neck pain lower back pain middle back pain. According to the niece he has chronic lower back pain. He had history of lower back pain in 2019 and had surgery in which she had a fusion of the L4-L5 but did not have any weakness afterwards. He has chronic kidney insufficiency stage IV. He is on gabapentin 600 mg twice daily as well as hydrocodone and sometimes not compliant taking the medication. He has not been evaluated by neurologist as an outpatient again since he refused any workup or evaluation. No history of stroke. IT APPLICATION SUPPORT ANALYST has evaluated him and they felt the patient has fasciculation and has stage III dysphagia. Some of the workup during this hospital visit consisted of: TSH is 0.779 Hemoglobin A1c is 5.8 MRI of the brain is reported as no evidence of intracranial mass or acute/subacute infarct. Minimal scattered nonspecific white matter changes, likely secondary due to small vessel ischemic disease. Personally reviewed the MRI and agree with the report. Review of Systems The positive and negative as per HPI. Past Medical History Past Medical History: GERD/Reflux, Hyperlipidemia, Hypertension, Musculoskeletal Disorder, Renal Disease, Sleep Apnea/CPAP/BIPAP Additional Past Medical History / Comment(s): uses CPAP. pt states he had a stroke a long time ago, speech is garbled, but pt answers questions appropriately and is alert and oriented and able to eat and drink by self without coughing. History of Any Multi-Drug Resistant Organisms: None Reported Past Surgical History: Tonsillectomy Additional Past Surgical History / Comment(s): colonoscopy Past Anesthesia/Blood Transfusion Reactions: No Reported Reaction Past Psychological History: Bipolar Smoking Status: Never smoker Past Alcohol Use History: Occasional Past Drug Use History: None Reported - Past Family History Mother Family Medical History: Hypertension Medications and Allergies Home Medications Medication Instructions Recorded Confirmed Type Gabapentin 600 mg PO BID 04/17/24 04/17/24 History HYDROcodone/APAP 7.5-325MG [[place] 1 tab PO BID 04/17/24 04/17/24 History 7.5-325] Allergies Allergy/AdvReac Type Severity Reaction Status Date / Time No Known Allergies Allergy Verified 04/17/24 15:54 Physical Examination - Vital Signs Vital Signs: Vital Signs Temp Pulse Resp BP BP Pulse Ox 04/19/24 07:54 98.1 F 64 16 134/72 98 04/19/24 00:53 97.3 F L 76 18 155/75 97 04/18/24 20:17 97.5 F L 69 16 157/89 97 04/18/24 15:00 98.4 F 71 16 133/80 98 Intake and Output 04/18/24 04/19/24 04/19/24 22:59 06:59 14:59 Output Total 600 600 350 Balance -600 -600 -350 Output: Urine 600 600 350 Other: Voiding Method Urinal Urinal # Voids 0 General: Lying in bed and is not in acute distress. Neuro: The patient is awake, alert, oriented to self, place, correctly stated the current year but stated current month is January. Is following simple commands. Having speech difficulty because of severe spastic voice. Pupils are round, equal and reactive to light. Pupils are 3mm bilaterally and reactive to light. Visual mcmillan are full to confrontaiton. EOM intact and no nystagmus. Normal facial sensation to touch. No facial droop noted. Has severe dysarthria. Tongue has fasciculation that is prominent. Motor: Strength R/L: Shoulder extension is 4+ while flexion are 5- bilaterally, forearm flexion is 5/4+, forearm extension is 5/4+, hand internal medicine nurse practitioner 5/4+, hips flexion is 3-4/1, knee extension 4/1, ankle flexion 2/0, ankle dorsiflexion is 2/0. Has fasciculation over the thighs right > left Sensation is normal to touch throughout. Cerebellar: Normal finger to nose bilaterally. Reflex: Uppers are 3+ throughout, lowers are patellar and ankle on right are 3+ with nonsustained clonus on right ankle. Left patellar are 2 and left ankle is 0. Plantars are mute bilaterally. Results - Laboratory Findings CBC and BMP: 04/17/24 14:20 04/17/24 14:20 Abnormal Lab Findings: Abnormal Labs 04/17/24 04/17/24 04/19/24 14:20 15:28 06:52 BUN 42 H Creatinine 2.45 H HDL Cholesterol 37.00 L Urine Protein Trace H Assessment and Plan Assessment: This is a 73-year-old gentleman with history of left leg weakness in the last 1 year progressively getting worse and eventually unable to move the left leg as well as speech difficulty difficulty swallowing in the last 8 months progressively getting worse. Per the niece she is also noticed that his tongue is twitchy as well as his thigh muscle she feels there is twitching. On examination patient has upper and lower motor neuron signs with dysphagia, fasciculation in the tongue and thighs, severely dysarthria. Has refused outpatient workup and evaluation. Used EMG with nerve conduction study as an outpatient. Upper and lower motor neuron lesion with fasciculation of the tongue and thighs and dysphagia and it seems his symptoms are progressively worsening: I am concerned about motor neuron lesion. MRI of the brain is unremarkable. History of lumbar fusion over L4-L5 in 2019 CKD Plan: I will pursue MRI of the cervical and thoracic spine I ordered TSH, vitamin B12. Recommend EMG with nerve conduction study as an outpatient of the uppers and lowers. Recommend the patient to follow-up with a neuromuscular specialist soon as possible recommend if possible to follow-up within 1 to 2 weeks Notified the patient and his niece about my concern and that his condition is progressive and that he should consider about a PEG tube and if he wants a trach down the line if his respiratory worsens and needs stated that they will have a discussion together. PT, OT and IT APPLICATION SUPPORT ANALYST are consulted. Will defer the rest of the medical management to primary team. Plan discussed with the patient and his niece who is at bedside as well as primary team. Thank you for the consultation. I have spent a total of 60 minutes on care. Time with Patient: Greater than 30
--- NOTE | 2024-04-19 13:28 | P.PN ---
Subjective Progress Note Date: 04/19/24 Pt has both upper and lower motor neuron signs. 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 Pt failed swallow study today per speech, will need nutrition needs addressed in coming day.s Gen: In NAD, non-toxic HEENT: normocephalic, atraumatic, hearing acuity is intant, mucous membranes moist CVS: perfusing all extremities well, no pitting edema, Respiratory: symmetric chest expansion, no accessory muscle use, GI: soft, NTTP, ND, : no suprapubic tenderness, no CVA tenderness MSK/Derm: no rashes, cyanosis Neuro: Left lower extremity weakness greater than right lower extremity weakness, left upper extremity weakness is present, no numbness, reflexes are 2+ throughout, Babinski is negative bilaterally Psych: cooperative, euthymic mood, judgment and insight is intact Hospital course: Patient is a 73-year-old male with a PMH of chronic kidney disease stage IV, hypertension and bipolar disorder who was brought into the emergency room by his niece for progressive bilateral lower extremity weakness. Chest x-ray in the emergency room was unremarkable with EKG showing sinus rhythm at 97 bpm with a right bundle branch block as reviewed by me. Laboratory evaluation was remarkable for BUN 42, and creatinine 2.45. Assessment: Progressive lower extremity weakness Left-sided weakness greater than right-sided weakness Dysarthria -PT, OT, speech therapy consult -Aspirin, statin -TSH, lipid panel, A1c -Carotid Doppler -MRI of the brain -Fall precautions Chronic kidney disease, stage IV -Monitor BMP Chronic conditions: hypertension, bipolar disorder DVT prophylaxis: Lovenox subcu The patient is admitted with an anticipated less than 2 midnight stay for evaluation of weakness CODE STATUS: Full Code Discussed with: Patient Anticipated discharge place: [facility] Objective - Vital Signs Vital signs: Vital Signs Temp 98.1 F 04/19/24 07:54 Pulse 64 04/19/24 07:54 Resp 16 04/19/24 07:54 BP 134/72 04/19/24 07:54 Pulse Ox 98 04/19/24 07:54 FiO2 Intake & Output 04/18/24 04/19/24 04/19/24 18:59 06:59 18:59 Intake Total 236 Output Total 1253 600 350 Balance -1017 -600 -350 Intake: Oral 236 Output: Urine 600 600 350 Post Void Residual 653 Other: Voiding Method Urinal Urinal Urinal # Voids 0 - Labs CBC & Chem 7: 04/17/24 14:20 04/17/24 14:20 Labs: Abnormal Lab Results - Last 24 Hours (Table) 04/19/24 Range/Units 06:52 HDL Cholesterol 37.00 L (40.00-60.00) mg/dL
[2024-04-19] MEDS: LORazepam 1 MG/0.5 ML VIAL IV ONE (18:14)
--- NOTE | 2024-04-19 20:15 | MR ---
EXAMINATION TYPE: MR cspine/tspine wo con DATE OF EXAM: 04/19/2024 COMPARISON: None HISTORY: Weakness arms and legs, CONTRAST: Performed utilizing 0 mL intravenous Gadavist gadolinium contrast. TECHNIQUE: Multiplanar multiecho imaging on a 3.0 Yamile magnet is performed through the cervical spin e. FINDINGS: The craniovertebral junction is normal. Vertebral body alignment is normal. Disc desicca tion is throughout the cervical spine. C7-T1: No focal disc herniation or significant disc bulge is evident. No spinal canal stenosis or n eural foraminal stenosis is present. C6-7: Mild disc bulge and mild anterior thecal sac contact. No cord contact is evident. No spinal can al stenosis. There is bilateral foraminal narrowing from uncovertebral joint hypertrophy. C5-6: Broad-based disc bulge has moderate anterior thecal sac compression. No cord contact is identif ied. No spinal canal stenosis present. Severe right and moderate left foraminal stenosis is present. C4-5: Small subligamentous disc herniation is present extending superiorly in the sagittal plane. No significant thecal sac compression is evident. No spinal canal stenosis. Mild bilateral foraminal diana rowing is present. C3-4: Subligamentous disc herniation is present extending superiorly sagittal plane. No significant t hecal sac compression is evident. No spinal canal stenosis or neural foraminal stenosis is present. C2-3: Some disc bulge is present with mild to moderate anterior thecal sac compression. Subligamentou s disc herniation may be present identified in sagittal plane. No spinal canal stenosis or neural for aminal stenosis is present. IMPRESSION: 1. Subligamentous disc herniations evident C2-3, C3-4, C4-5. 2. Broad-based disc bulge C6-7 with mild anterior thecal sac compression. 3. Uncovertebral joint hypertrophy contributing to right foraminal stenosis discussed above. EXAMINATION TYPE: MR cspine/tspine wo con DATE OF EXAM: 04/19/2024 COMPARISON: None HISTORY: Weakness arms and legs, CONTRAST: Performed utilizing 0 mL intravenous Gadavist gadolinium contrast. TECHNIQUE: Multiplanar, multiecho imaging on a 3.0 Yamile magnet is performed through the thoracic spi ne. Spinal cord maintains normal signal through its visualized course. Vertebral body alignment is normal. Vertebral body heights are preserved. At T10-11 there is narrowing of disc height with disc desiccation. Some posterior facet hypertrophy i s contributing to canal narrowing through this level. There may be facet contact with the spinal cord on the right at this level. Disc desiccation is present throughout the thoracic spine. No spinal canal stenosis is evident. IMPRESSION: 1. Facet hypertrophy of posterior lateral thecal sac compression with some mild disc bulging present at T10-11. These are contributing to some spinal canal narrowing without deformity. Some cord contact may be present.
[2024-04-20 01:35] LABS: HIV 2 AB Non-Reactive (Non-Reactive); HIV AB P24 Non-Reactive (Non-Reactive); HIV P24 AG Non-Reactive (Non-Reactive)
[2024-04-20 02:14] LABS: Rheumatoid Factor, Qnt <15 IU/mL (0-15)
[2024-04-20 02:49] LABS: Protein, Total 6.6 g/dL (6.2-8.2)
[2024-04-20 11:01] LABS: Basophils # (A) 0.06 X 10*3/uL (0.00-0.10); Basophils % (A) 0.9 %; Eosinophils # (A) 0.25 X 10*3/uL (0.04-0.35); Eosinophils % (A) 3.9 %; HCT 42.6 % (39.6-50.0); HGB 13.3 g/dL (13.0-17.0); Lymphocytes # (A) 1.34 X 10*3/uL (0.90-5.00); Lymphocytes % (A) 20.7 %; MCH 27.3 pg (27.0-32.0); MCHC 31.2 g/dL (32.0-37.0); MCV 87.3 FL (80.0-97.0); Mean Platelet Volume 9.9 FL (9.5-12.2); Monocytes # (A) 1.08 X 10*3/uL (0.20-1.00); Monocytes % (A) 16.7 %; NRBC Per 100 WBC 0 X 10*3/uL (0.00-0.01); Neutrophils # (A) 3.72 X 10*3/uL (1.80-7.70); Neutrophils % (A) 57.5 %; Platelet Count 259 X 10*3/uL (140-440); RBC 4.88 X 10*6/uL (4.40-5.60); RDW 13.9 % (11.5-14.5); WBC 6.47 X 10*3/uL (4.50-10.00)
[2024-04-20 11:30] LABS: BUN/Creat Ratio 13.92 Ratio (12.00-20.00); Blood Urea Nitrogen 36.2 mg/dL (9.0-27.0); Calcium 9.8 mg/dL (8.7-10.3); Carbon Dioxide 21.8 mmol/L (21.6-31.8); Chloride 104 mmol/L (96-109); Glucose 93 mg/dL (70-110); Magnesium 2.1 mg/dL (1.5-2.4); Potassium 4.2 mmol/L (3.5-5.5); Sodium 138 mmol/L (135-145)
--- NOTE | 2024-04-20 11:39 | P.PN ---
Subjective Progress Note Date: 04/20/24 Patient has no new complaints today. Pending discharge after insurance authorization. Gen: In NAD, non-toxic HEENT: normocephalic, atraumatic, hearing acuity is intant, mucous membranes moist CVS: perfusing all extremities well, no pitting edema, Respiratory: symmetric chest expansion, no accessory muscle use, GI: soft, NTTP, ND, : no suprapubic tenderness, no CVA tenderness MSK/Derm: no rashes, cyanosis Neuro: Left lower extremity weakness greater than right lower extremity weakness, left upper extremity weakness is present, no numbness, reflexes are 2+ throughout, Babinski is negative bilaterally Psych: cooperative, euthymic mood, judgment and insight is intact Hospital course: Patient is a 73-year-old male with a PMH of chronic kidney disease stage IV, hypertension and bipolar disorder who was brought into the emergency room by his niece for progressive bilateral lower extremity weakness. Chest x-ray in the emergency room was unremarkable with EKG showing sinus rhythm at 97 bpm with a right bundle branch block as reviewed by me. Laboratory evaluation was remarkable for BUN 42, and creatinine 2.45. Assessment: Progressive lower extremity weakness Left-sided weakness greater than right-sided weakness Dysarthria -PT, OT, speech therapy consult -Aspirin, statin was negative for -Carotid Doppler clinically significant stenosis -MRI of the brain was negative for acute/subacute stroke. -Fall precautions -Dysphagia 3 diet Chronic kidney disease, stage IV -Monitor BMP Chronic conditions: hypertension, bipolar disorder DVT prophylaxis: Lovenox subcu The patient is admitted with an anticipated less than 2 midnight stay for evaluation of weakness CODE STATUS: Full Code Discussed with: Patient Anticipated discharge place: [facility] Objective - Vital Signs Vital signs: Vital Signs Temp 97.5 F L 04/20/24 07:38 Pulse 74 04/20/24 07:38 Resp 14 04/20/24 07:38 BP 121/76 04/20/24 07:38 Pulse Ox 96 04/20/24 07:38 FiO2 Intake & Output 04/19/24 04/20/24 04/20/24 18:59 06:59 18:59 Output Total 700 600 Balance -700 -600 Output: Urine 700 600 Other: Voiding Method Urinal Urinal # Voids 2 # Bowel Movements 0 - Labs CBC & Chem 7: 04/20/24 07:14 04/20/24 07:14 Labs: Abnormal Lab Results - Last 24 Hours (Table) 04/19/24 04/20/24 04/20/24 Range/Units 20:15 07:14 07:14 MCHC 31.2 L (32.0-37.0) g/dL Monocytes # 1.08 H (0.20-1.00) X 10*3/uL ESR 40 H (0-20) mm/Hr Anion Gap 12.20 H (4.00-12.00) mmol/L BUN 36.2 H (9.0-27.0) mg/dL Creatinine 2.6 H (0.6-1.5) mg/dL Est GFR (CKD-EPI) 25 L (>=60)
--- NOTE | 2024-04-20 15:05 | P.PN ---
Subjective Progress Note Date: 04/20/24 I am following-up with patient and he is about the same. Objective - Vital Signs Vital signs: Vital Signs Temp 97.5 F L 04/20/24 14:00 Pulse 73 04/20/24 14:00 Resp 16 04/20/24 14:00 BP 153/84 04/20/24 14:00 Pulse Ox 98 04/20/24 14:00 FiO2 Intake & Output 04/19/24 04/20/24 04/20/24 18:59 06:59 18:59 Output Total 700 600 Balance -700 -600 Output: Urine 700 600 Other: Voiding Method Urinal Urinal # Voids 2 # Bowel Movements 0 - Exam General: Lying in bed and is not in acute distress. Neuro: The patient is awake, alert, oriented to self, place, correctly stated the current year but stated current month is January. Is following simple commands. Having speech difficulty because of severe spastic voice. Pupils are round, equal and reactive to light. Pupils are 3mm bilaterally and reactive to light. Visual mcmillan are full to confrontaiton. EOM intact and no nystagmus. Normal facial sensation to touch. No facial droop noted. Has severe dysarthria. Tongue has fasciculation that is prominent. Motor: Strength R/L: Shoulder extension is 4+ while flexion are 5- bilaterally, forearm flexion is 5/4+, forearm extension is 5/4+, hand professional nursing tutor 5/4+, hips flexion is 3-4/1, knee extension 4/1, ankle flexion 2/0, ankle dorsiflexion is 2/0. Has fasciculation over the thighs right > left Sensation is normal to touch throughout. Cerebellar: Normal finger to nose bilaterally. Reflex: Uppers are 3+ throughout, lowers are patellar and ankle on right are 3+ with nonsustained clonus on right ankle. Left patellar are 2 and left ankle is 0. Plantars are mute bilaterally. Some of the workup during this hospital visit consisted of: ESR: 40 TSH is 0.779 Vitamin B12: 620 CK level is 72 Calcium is 9.8 Phosphorus: 2.9 Magenesium: 2.1 Hemoglobin A1c is 5.8 RF <15 SONAM are negative. Lyme is negative. HIV is nonreactive. MRI of the brain is reported as no evidence of intracranial mass or acute/subacute infarct. Minimal scattered nonspecific white matter changes, likely secondary due to small vessel ischemic disease. Personally reviewed the MRI and agree with the report. MRI cervical/thoracic: Facet hypertrophy of posterior lateral thecal sac compression with some mild disc bulging present at T10-T11. There are contr ibuting to some spinal canal narrowing without deformity. Some cord contact may be present. - Labs CBC & Chem 7: 04/20/24 07:14 04/20/24 07:14 Labs: Abnormal Lab Results - Last 24 Hours (Table) 04/19/24 04/20/24 04/20/24 Range/Units 20:15 07:14 07:14 MCHC 31.2 L (32.0-37.0) g/dL Monocytes # 1.08 H (0.20-1.00) X 10*3/uL ESR 40 H (0-20) mm/Hr Anion Gap 12.20 H (4.00-12.00) mmol/L BUN 36.2 H (9.0-27.0) mg/dL Creatinine 2.6 H (0.6-1.5) mg/dL Est GFR (CKD-EPI) 25 L (>=60) Assessment and Plan Assessment: This is a 73-year-old gentleman with history of left leg weakness in the last 1 year progressively getting worse and eventually unable to move the left leg as well as speech difficulty difficulty swallowing in the last 8 months progressively getting worse. Per the niece she is also noticed that his tongue is twitchy as well as his thigh muscle she feels there is twitching. On examination patient has upper and lower motor neuron signs with dysphagia, fasciculation in the tongue and thighs, severely dysarthria. Has refused outpatient workup and evaluation. Used EMG with nerve conduction study as an outpatient. Upper and lower motor neuron lesion with fasciculation of the tongue and thighs and dysphagia and it seems his symptoms are progressively worsening: I am concerned about motor neuron lesion. MRI of the brain is unremarkable. MRI C-spine/T-spine would not explain patient symptoms. History of lumbar fusion over L4-L5 in 2019 CKD Plan: Pending MRI Lumbar. Pending HTLV, protein electrophoresis, immunofixation. Recommend EMG with nerve conduction study as an outpatient of the uppers and lowers. Recommend the patient to follow-up with a neuromuscular specialist soon as possible recommend if possible to follow-up within 1 to 2 weeks Notified the patient and his niece about my concern and that his condition is progressive and that he should consider about a PEG tube and if he wants a trach down the line if his respiratory worsens and needs stated that they will have a discussion together. PT, OT and X RAY SERVICE ENGINEER are consulted. Will defer the rest of the medical management to primary team. Plan discussed with the patient and primary team. Time with Patient: Less than 30
[2024-04-20 18:07] LABS: Albumin 3.55 g/dL (3.80-4.90); Gamma Globulin 0.83 g/dL (0.70-1.50)
[2024-04-21 08:06] VITALS: RESP 17
--- NOTE | 2024-04-21 14:26 | P.DS ---
Providers Date of admission: 04/18/24 09:13 Expected date of discharge: 04/21/24 Attending physician: Shaun Choudhury MD Consults: 04/19/24 12:03 Consult Physician Routine Consulting Provider: Jorgito Le Consult Reason/Comments: tongue fasciculations Do you want consulting provider notified?: Already Contacted Primary care physician: [facility] Course: Progressive lower extremity weakness Left-sided weakness greater than right-sided weakness Dysarthria Chronic kidney disease, stage IV Chronic conditions: hypertension, bipolar disorder Gen: In NAD, non-toxic HEENT: normocephalic, atraumatic, hearing acuity is intant, mucous membranes moist CVS: perfusing all extremities well, no pitting edema, Respiratory: symmetric chest expansion, no accessory muscle use, GI: soft, NTTP, ND, : no suprapubic tenderness, no CVA tenderness MSK/Derm: no rashes, cyanosis Neuro: Left lower extremity weakness greater than right lower extremity weakness, left upper extremity weakness is present, no numbness, reflexes are 2+ throughout, Babinski is negative bilaterally Psych: cooperative, euthymic mood, judgment and insight is intact Hospital course: Patient is a 73-year-old male with a PMH of chronic kidney disease stage IV, hypertension and bipolar disorder who was brought into the emergency room by his niece for progressive bilateral lower extremity weakness. Chest x-ray in the emergency room was unremarkable with EKG showing sinus rhythm at 97 bpm with a right bundle branch block as reviewed by me. Laboratory evaluation was remarkable for BUN 42, and creatinine 2.45. Patient was seen and evaluated by neurology, who suspected ALS. Patient underwent MRI of the brain which was negative for acute/subacute infarct. He underwent MRI of the C/T spine which did show some spinal canal narrowing which did not explain his symptoms per neurology. Patient was also seen by speech therapy and was found to have some dysfunction in swallow, was started on dysphagia 3 diet. Carotid Doppler was negative for clinically significant stenosis. Patient was treated on aspirin, statin. Seen and evaluated by PT/OT. Recommended for rehab. Patient will be discharged there with instructions to follow-up with neurology for outpatient EMG/nerve conduction studies for further workup of ALS/other motor neuron disease. I spent 38 minutes coordinating this discharge Patient Condition at Discharge: Good Plan - Discharge Summary New Discharge Prescriptions: New Aspirin 81 mg PO DAILY tab Atorvastatin [Lipitor] 80 mg PO HS #0 tab Continue Gabapentin 600 mg PO BID #6 tab HYDROcodone/APAP 7.5-325MG [Ayden 7.5-325] 1 tab PO BID #4 tab Discharge Medication List Aspirin 81 mg PO DAILY tab 04/21/24 [Rx] Atorvastatin [Lipitor] 80 mg PO HS #0 tab 04/21/24 [Rx] Gabapentin 600 mg PO BID #6 tab 04/21/24 [Rx] HYDROcodone/APAP 7.5-325MG [Ayden 7.5-325] 1 tab PO BID #4 tab 04/21/24 [Rx] Follow up Appointment(s)/Referral(s): Scottie Ozuna, [NON-STAFF] - As Needed None,Stated [REFERRING] - 1-2 days Activity/Diet/Wound Care/Special Instructions: Follow up with neuromuscular specialist 1-2 weeks if possible Diet: Dysphagia level 3 chopped diet, no straws, aspiration precautions Discharge Disposition: TRANSFER TO SNF/ECF
[2024-04-21 15:53] VITALS: BP 120/71; PULSE 89; TEMP 97.8
--- NOTE | 2024-04-21 16:10 | P.PN ---
Subjective Progress Note Date: 04/21/24 I am following-up with patient and he feels he is about the same. Objective - Vital Signs Vital signs: Vital Signs Temp 97.8 F 04/21/24 14:00 Pulse 89 04/21/24 14:00 Resp 17 04/21/24 14:00 BP 120/71 04/21/24 14:00 Pulse Ox 96 04/21/24 14:00 FiO2 Intake & Output 04/20/24 04/21/24 04/21/24 18:59 06:59 18:59 Intake Total 220 594 Output Total 675 Balance -455 594 Intake: Oral 220 594 Output: Urine 675 Other: # Voids 2 - Exam General: Lying in bed and is not in acute distress. Neuro: The patient is awake, alert, oriented to self, place, correctly stated the current year but stated current month is January. Is following simple commands. Having speech difficulty because of severe spastic voice. Pupils are round, equal and reactive to light. Pupils are 3mm bilaterally and reactive to light. Visual mcmillan are full to confrontaiton. EOM intact and no nystagmus. Normal facial sensation to touch. No facial droop noted. Has severe dysarthria. Tongue has fasciculation that is prominent. Motor: Strength R/L: Shoulder extension is 4+ while flexion are 5- bilaterally, forearm flexion is 5/4+, forearm extension is 5/4+, hand software quality assurance specialist 5/4+, hips flexion is 3-4/1, knee extension 4/1, ankle flexion 2/0, ankle dorsiflexion is 2/0. Has fasciculation over the thighs right > left Sensation is normal to touch throughout. Cerebellar: Normal finger to nose bilaterally. Reflex: Uppers are 3+ throughout, lowers are patellar and ankle on right are 3+ with nonsustained clonus on right ankle. Left patellar are 2 and left ankle is 0. Plantars are mute bilaterally. Some of the workup during this hospital visit consisted of: ESR: 40 TSH is 0.779 Vitamin B12: 620 CK level is 72 Calcium is 9.8 Phosphorus: 2.9 Magenesium: 2.1 Hemoglobin A1c is 5.8 RF <15 SONAM are negative. Lyme is negative. HIV is nonreactive. Serum protein electrophoresis and immunofixation: No monoclonal paraprotein. MRI of the brain is reported as no evidence of intracranial mass or acute/subacute infarct. Minimal scattered nonspecific white matter changes, likely secondary due to small vessel ischemic disease. Personally reviewed the MRI and agree with the report. MRI cervical/thoracic: Facet hypertrophy of posterior lateral thecal sac com pression with some mild disc bulging present at T10-T11. There are contributing to some spinal canal narrowing without deformity. Some cord contact may be present. - Labs CBC & Chem 7: 04/20/24 07:14 04/20/24 07:14 Labs: Abnormal Lab Results - Last 24 Hours (Table) 04/19/24 Range/Units 20:15 Albumin (PEP) 3.55 L (3.80-4.90) g/dL [id number] 1.01 H (0.60-1.00) g/dL Assessment and Plan Assessment: This is a 73-year-old gentleman with history of left leg weakness in the last 1 year progressively getting worse and eventually unable to move the left leg as well as speech difficulty difficulty swallowing in the last 8 months progressively getting worse. Per the niece she is also noticed that his tongue is twitchy as well as his thigh muscle she feels there is twitching. On examination patient has upper and lower motor neuron signs with dysphagia, fa sciculation in the tongue and thighs, severely dysarthria. Has refused outpatient workup and evaluation. Used EMG with nerve conduction study as an outpatient. Upper and lower motor neuron lesion with fasciculation of the tongue and thighs and dysphagia and it seems his symptoms are progressively worsening: I am concerned about motor neuron lesion. MRI of the brain is unremarkable. MRI C-spine/T-spine does not explain patient symptoms. History of lumbar fusion over L4-L5 in 2019 CKD Plan: Pending MRI Lumbar and if unable to be obtained as inpatient then recommend outpatient. Pending HTLV. Recommend EMG with nerve conduction study as an outpatient of the uppers and lowers. Recommend the patient to follow-up with a neuromuscular specialist as soon as possible. Recommend if possible to follow-up within 1 to 2 weeks Notified the patient and his niece about my concern and that his condition is progressive and that he should consider about a PEG tube and if he wants a trach down the line if his respiratory worsens and needs stated that they will have a discussion together. PT, OT and HIM ANALYST are consulted. Will defer the rest of the medical management to primary team. Plan discussed with the patient, nephews and primary team. Otherwise no additional neurological work-up. Time with Patient: Less than 30
== END 2024-04-21 15:27 | DRG 74 ==
LOC: EC 13:36 → 6NMEDSUR 19:59 → OBSVTOIN 04-18 09:13
PROVIDERS: ADMIT Student in an Organized Health Care Education/Training Program; ATTEND Student in an Organized Health Care Education/Training Program
DX: G58.8 Other specified mononeuropathies (principal); N18.4 Chronic kidney disease, stage 4 (severe); R53.1 Weakness; E78.5 Hyperlipidemia, unspecified; F31.9 Bipolar disorder, unspecified; I12.9 Hypertensive chronic kidney disease with stage 1 through stage 4 chronic kidney disease, or unspecified chronic kidney disease; I45.10 Unspecified right bundle-branch block; M48.00 Spinal stenosis, site unspecified; R13.10 Dysphagia, unspecified; Z79.899 Other long term (current) drug therapy; Z86.73 Personal history of transient ischemic attack (TIA), and cerebral infarction without residual deficits; Z98.1 Arthrodesis status; Z99.3 Dependence on wheelchair
CPT/HCPCS: 36415; 70551; 71046; 72141; 72146; 74230; 80048; 80053; 80061; 81003; 82550; 82607; 83036; 83605; 83735; 84100; 84165; 84443; 84484; 85025; 85610; 85652; 85730; 86038; 86334; 86431; 86618; 86790; 87390; 93005; 93306; 93880; 96360; 96372; 99285

== ENCOUNTER 2024-10-07 01:52 | Emergency (ER) | payer MEDICARE, OTHER ==
[2024-10-07 02:05] VITALS: RESP 18; TEMP 98.3
--- NOTE | 2024-10-07 02:24 | ED ---
Chest Pain HPI - General Chief Complaint: Chest Pain Stated Complaint: CP Time Seen by Provider: 10/07/24 01:55 Source: patient, EMS Mode of arrival: EMS Limitations: physical limitation (The patient has limited speech due to ALS) - History of Present Illness Initial Comments: Patient is 74-year-old man who presents to have evaluation for left-sided chest pain. History somewhat limited as the patient does have limited speech due to ALS. MD Complaint: chest pain -: hour(s) Onset: during rest Pain Location: left chest Pain Radiation: none Severity: moderate Quality: heaviness Consistency: intermittent Improves With: nothing Worsens With: nothing Treatments Prior to Arrival: none - Related Data Previous Rx's Medication Instructions Recorded Aspirin 81 mg PO DAILY tab 04/21/24 Atorvastatin [Lipitor] 80 mg PO HS #0 tab 04/21/24 Gabapentin 600 mg PO BID #6 tab 04/21/24 HYDROcodone/APAP 7.5-325MG [Duncan 1 tab PO BID #4 tab 04/21/24 7.5-325] Allergies Allergy/AdvReac Type Severity Reaction Status Date / Time No Known Allergies Allergy Verified 10/07/24 02:05 Review of Systems ROS Statement: Those systems with pertinent positive or pertinent negative responses have been documented in the HPI. ROS Other: All systems not noted in ROS Statement are negative. Constitutional: Denies: fever, chills Respiratory: Denies: cough, dyspnea Cardiovascular: Reports: chest pain. Denies: syncope Gastrointestinal: Denies: abdominal pain, vomiting, diarrhea Genitourinary: Denies: dysuria Musculoskeletal: Denies: back pain Skin: Denies: rash Neurological: Denies: headache EKG Findings - EKG Results: EKG: interpreted by ERMD, sinus rhythm (92 bpm) - Blocks, Raymond, Hypertrophy, ST Abn: QRS axis and voltage: low voltage (<0.5 MV total QRS and <1.0 MV in each precordial lead) - MS, Pacemaker, Normal: Myocardial infarction: inferior MS (old age indeterminate), anterior MS (old age or indeterminate) Past Medical History Past Medical History: GERD/Reflux, Hyperlipidemia, Hypertension, Musculoskeletal Disorder, Renal Disease, Sleep Apnea/CPAP/BIPAP Additional Past Medical History / Comment(s): uses CPAP. pt states he had a stroke a long time ago, speech is garbled, but pt answers questions appropriately and is alert and oriented and able to eat and drink by self without coughing. History of Any Multi-Drug Resistant Organisms: None Reported Past Surgical History: Tonsillectomy Additional Past Surgical History / Comment(s): colonoscopy Past Anesthesia/Blood Transfusion Reactions: No Reported Reaction Past Psychological History: Bipolar Smoking Status: Never smoker Past Alcohol Use History: Occasional Past Drug Use History: None Reported - Past Family History Mother Family Medical History: Hypertension General Exam General appearance: alert, in no apparent distress Head exam: Present: atraumatic, normocephalic Eye exam: Present: normal appearance. Absent: scleral icterus, conjunctival injection ENT exam: Present: mucous membranes dry Neck exam: Present: normal inspection. Absent: meningismus Respiratory exam: Present: normal lung sounds bilaterally. Absent: respiratory distress, wheezes, rales, rhonchi, stridor, accessory muscle use Cardiovascular Exam: Present: regular rate, normal rhythm, normal heart sounds. Absent: systolic murmur, diastolic murmur, rubs, gallop GI/Abdominal exam: Present: soft. Absent: distended, tenderness, guarding, rebound, rigid, mass Extremities exam: Present: normal inspection, normal capillary refill. Absent: pedal edema, calf tenderness Back exam: Present: normal inspection. Absent: CVA tenderness (R), CVA tenderness (L) Neurological exam: Present: alert Skin exam: Present: warm, dry, intact, normal color. Absent: rash Course Vital Signs 10/07/24 10/07/24 10/07/24 02:02 03:53 06:17 Temperature 98.3 F Pulse Rate 98 90 85 Respiratory 18 18 18 Rate Blood Pressure 118/84 112/84 122/82 O2 Sat by Pulse 98 97 100 Oximetry Chest Pain MDM - [facility] Patient is 74-year-old man evaluated here for chest pain. The patient's workup is benign and he is feeling better. The patient does want to go home. Patient's family member asked if there was a possibility of a respite admission to hospice. Case management did discuss with hospice and they will accept the patient for a brief respite admission. Discussed appropriate follow-up as well as return parameters. Was pt. sent in by a medical professional or institution (, PA, VETERINARY TECHNOLOGIST, urgent care, hospital, or jail...) When possible be specific @ -[No] Did you speak to anyone other than the patient for history (EMS, parent, family, police, friend...)? What history was obtained from this source @ -[Patient's family member did contribute some history Did you review nursing and triage notes (agree or disagree)? Why? @ -[I reviewed and agree with nursing and triage notes] Were old charts reviewed (outside hosp., previous admission, EMS record, old EKG, old radiological studies, urgent care reports/EKG's, jail records)? Report findings @ -[No old charts were reviewed] Differential Diagnosis (chest pain, altered mental status, abdominal pain women, abdominal pain men, vaginal bleeding, weakness, fever, dyspnea, syncope, headache, dizziness, GI bleed, back pain, seizure, CVA, palpatations, mental health, musculoskeletal)? @ -[Differential Chest Pain: Stable Angina, Unstable Angina, STEMI, NSTEMI Aortic Dissection, Pneumothorax, Musculoskeletal, Esophageal Spasm GERD, Cholecystitis, Pancreatitis, Zoster, this is not meant to be an all-inclusive list. EKG interpreted by me (3pts min.). @ -[I interpreted as above] X-rays interpreted by me (1pt min.). @ -[I interpreted as above CT interpreted by me (1pt min.). @ -[None done] U/S interpreted by me (1pt. min.). @ -[None done] What testing was considered but not performed or refused? (CT, X-rays, U/S, la bs)? Why? @ -[None] What meds were considered but not given or refused? Why? @ -[None] Did you discuss the management of the patient with other professionals (professionals i.e. , PA, VETERINARY TECHNOLOGIST, lab, RT, psych nurse, social economist, wood drilling machine operator, teacher, welfare officer, case hardener)? Give summary @ -[No] Was smoking cessation discussed for >3mins.? @ -[No] Was critical care preformed (if so, how long)? @ -[No] Were there social determinants of health that impacted care today? How? (Homelessness, low income, unemployed, alcoholism, drug addiction, transportation, low edu. Level, literacy, decrease access to med. care, [facility], rehab)? @ -[No] Was there de-escalation of care discussed even if they declined (Discuss DNR or withdrawal of care, Hospice)? DNR status @ -[The patient already in hospice care What co-morbidities impacted this encounter? (DM, HTN, Smoking, COPD, CAD, Cancer, CVA, ARF, Chemo, Hep., AIDS, mental health diagnosis, sleep apnea, morbid obesity)? @ -[Hypertension. ALS Was patient admitted / discharged? Hospital course, mention meds given and route, prescriptions, significant lab abnormalities, going to OR and other pertinent info. @ -[As above Undiagnosed new problem with uncertain prognosis? @ -[No] Drug Therapy requiring intensive monitoring for toxicity (Heparin, Nitro, Insulin, Cardizem)? @ -[No] Were any procedures done? @ -[No] Diagnosis/symptom? @ -Acute chest pain Acute, or Chronic, or Acute on Chronic? @ -[Acute Uncomplicated (without systemic symptoms) or Complicated (systemic symptoms)? @ -[Uncomplicated Side effects of treatment? @ -[No] Exacerbation, Progression, or Severe Exacerbation? @ -[No] Poses a threat to life or bodily function? How? (Chest pain, [place], MS, pneumonia, PE, COPD, DKA, ARF, appy, cholecystitis, CVA, Diverticulitis, Homicidal, Suicidal, threat to staff... and all critical care pts) @ -[There is some risk, but patient is hospice care Disposition Clinical Impression: Chest pain Disposition: HOME SELF-CARE Condition: Good Instructions (If sedation given, give patient instructions): Chest Pain (ED) Is patient prescribed a controlled substance at d/c from ED?: No Referrals: Beatrice Virk MD [Primary Care Provider] - 1-2 days
[2024-10-07 02:37] LABS: Basophils % (A) 1 %; Eosinophils # (A) 0.2 k/uL (0-0.7); Eosinophils % (A) 3 %; HCT 45.9 % (39.0-53.0); HGB 14.4 gm/dL (13.0-17.5); Hypochromasia Slight; Lymphocytes % (A) 15 %; MCH 28.8 pg (25.0-35.0); MCHC 31.3 g/dL (31.0-37.0); MCV 92.1 fL (80.0-100.0); Mean Platelet Volume 7.2; Monocytes # (A) 0.5 k/uL (0-1.0); Monocytes % (A) 8 %; Neutrophils # (A) 4.6 k/uL (1.3-7.7); Neutrophils % (A) 70 %; Platelet Count 198 k/uL (150-450); RBC 4.99 m/uL (4.30-5.90); RDW 13.9 % (11.5-15.5); WBC 6.6 k/uL (3.8-10.6)
[2024-10-07 02:43] LABS: ALT 25 U/L (4-49); African American GFR (CKD) 51 (>60 ml/min/1.73 sqM); Albumin 3.3 g/dL (3.5-5.0); Anion Gap 7 mmol/L; Blood Urea Nitrogen 35 mg/dL (9-20); Calcium 9.5 mg/dL (8.4-10.2); Carbon Dioxide 21 mmol/L (22-30); Chloride 107 mmol/L (98-107); Glucose 79 mg/dL (74-99); Non-African American GFR(CKD) 44 (>60 ml/min/1.73 sqM); Sodium 135 mmol/L (137-145); Total Bilirubin 1.2 mg/dL (0.2-1.3)
[2024-10-07 02:53] LABS: AST 28 U/L (17-59); Alkaline Phosphatase 95 U/L (38-126); Magnesium 2.1 mg/dL (1.6-2.3); Potassium 4.4 mmol/L (3.5-5.1)
[2024-10-07 02:58] LABS: Partial Thromboplastin Time 23.9 sec (22.0-30.0)
[2024-10-07] MEDS: MORPHINE SULFATE 4 MG/ML SYRINGE IV STA (03:38)
--- NOTE | 2024-10-07 04:57 | XR ---
EXAM: XR Chest, 1 View CLINICAL HISTORY: chest pain TECHNIQUE: Frontal view of the chest. COMPARISON: October 05, 2023. FINDINGS: Lungs: Unremarkable. No acute infiltration, atelectasis or mass. Pleural space: Unremarkable. No pneumothorax or pleural fluid. Heart: Unremarkable. No cardiomegaly. Mediastinum: Unremarkable. Normal mediastinal contour. Bones/joints: No acute findings. IMPRESSION: No acute findings in the chest.
[2024-10-07 06:19] VITALS: BP 122/82; PULSE 85
== END 2024-10-07 06:42 | disposition home or self-care (01) ==
LOC: EC 01:52
DX: R07.89 Other chest pain (principal); I10 Essential (primary) hypertension
CPT/HCPCS: 99285 ×2; 36415; 93005; 80053; 83735; 84484; 85025; 85610; 85730; 71045; 96374; J2270